=== PATIENT | male | born 1930 | race Caucasian/White ===

== ENCOUNTER 2016-07-06 14:12 | Outpatient (RCR) | payer MEDICARE ==
[~2016-07-06 14:12] MED LIST: AMLO10TA2 PO; ASPI-875 PO; ATRV10T PO; CALC-697 PO; CALCIUM CARBONATE 750 MG PO; CETI10TA17 PO; CHOL10003 PO; HCT25T PO; LOSA100T28 PO; LVF500T PO; METO-351 PO; MTP100TCR PO; MULT-963 PO; OMEG-9 PO; OMEP20CA12 PO; POTA10CA43 PO; PROP10DR2 OU; SCR1T1 PO; VALS320T8 PO; VITAMIN B PO
--- OUTSIDE RECORDS SUMMARY | 2016-07-06 14:15 | XMS REPORT | Continuity of Care Document ---
Author Author [facility] Organization [facility] Address Unknown Phone Unavailable Care Team Providers Care Truck Body Repairer Name Role Phone BEN CRANDALL MD PCP Insurance Providers Payer Name Policy Number Subscriber Name Relationship Wps Medicare [id number] Adrián Otto 18 Self / Same As Patient Blue Cross [facility] Supp [id number] Adrián Otto 18 Self / Same As Patient Advance Directives Directive Response Recorded Date/Time Advance Directives No 05/08/14 8:13am Health Care Power of Trial Management Associate No 05/08/14 8:13am Organ Donor No 05/08/14 8:13am Resuscitation Status Full Code 05/08/14 8:13am Problems No known problems or medical conditions. Medications Medication Dose Route Sig Days/Qty Instructions Order Date Discontinued Date Status Atorvastatin Calcium 10 Mg PO BEDTIME 02/28/13 Active Hydrochlorothiazide 25 Mg PO DAILY 02/28/13 Active Valsartan 320 Mg PO BEDTIME 02/28/13 Active Omeprazole 20 Mg PO DAILY PATIENT STATES HE ONLY TAKES ONCE DAILY ( BOTTLE SAYS BID) 02/28/13 Active Sucralfate 1 Gm PO THREE TIMES A DAY 02/28/13 Active Aspirin 81 Mg PO BEDTIME 02/28/13 Active Cetirizine HCl (Zyrtec) 10 Mg PO DAILY 02/28/13 05/08/14 Discontinued Multivitamin 1 Tab PO DAILY 02/28/13 Active Cholecalciferol 1,000 Unit PO DAILY 02/28/13 05/08/14 Discontinued [place]-3/Dha/Epa/Fish Oil 3 Cap PO DAILY TAKES 3 CAPS (1400MG) 02/28/13 Active [place]-3/Dha/Epa/Fish Oil 1 Cap PO BEDTIME 02/28/13 05/08/14 Discontinued [Vitamin B12 Sl] 2,500 Mcg PO DAILY 02/28/13 Active [Calcium Carb 750MG] 2 Tab PO THREE TIMES A DAY PRN 750MG 02/28/13 Discontinued Propylene Glycol/Peg 400 1 Drop OU TWICE A DAY PRN DRY EYES 02/28/13 Active Calcium Carbonate/Vitamin D3 2 Tab PO DAILY 05/08/14 Active Levofloxacin 500 Mg PO DAILY@11 7 Days 05/09/14 Active Social History Social History Problem Response Recorded Date/Time Smoking Status Never a Smoker 05/08/2014 8:14am Query Response Start Date Stop Date Smoking Status Never a Smoker Hospital Discharge Instructions No hospital discharge instructions. Plan of Care No plan of care. Functional Status Query Response Date Recorded Patient Orientation Person Place Time Situation May 09, 2014 6:01pm Comprehension Ability Understands Concepts May 09, 2014 9:00am Allergies, Adverse Reactions, Alerts Allergen Type Severity Reaction Status Last Updated clavulanic acid ([id number]) Allergy Intermediate NAUSEA Active 05/11/10 adhesive ([id number]) Allergy Intermediate Rash Active 05/09/14 Amoxicillin ([id number]) Allergy Intermediate NAUSEA Active 05/11/10 Immunizations Name Given Type Date of Pneumonia Vaccine 02/28/11 Historical Vital Signs Acute Vital Signs Vital Response Date/Time Temperature (Fahrenheit) 97.5 degrees F (97.6 - 99.5) Temperature (Calculated Celsius) 36.57358 degrees C (36.4 - 37.5) Temperature Source Tympanic Pulse Rate (adult) 61 bpm (60 - 90) Respiratory Rate 18 bpm (12 - 24) O2 Sat by Pulse Oximetry 95 % (88 - 100) Blood Pressure 123/69 mm Hg Pain Pain Intensity 3 Height (Feet) 5 feet Height (Inches) 7.00 inches Height (Calculated Centimeters) 170.933506 cm Weight (Pounds) 169 pounds Weight (Calculated Grams) 86648.111 gm Weight (Calculated Kilograms) 76.000670 kilograms Calculated BMI 26.47 Results Test Source Date Result Interp. Ref. Range Comments Activated Partial Thromboplast Time February 28, 2013 11:32am 21 SEC L 24- 35 Alanine Aminotransferase (ALT/SGPT) April 30, 2014 1:12pm 18 U/L N 0- 55 Albumin April 30, 2014 1:12pm 3.8 G/DL N 3.2-4.5 Alkaline Phosphatase April 30, 2014 1:12pm 61 U/L N 40-136 Aspartate Amino Transf (AST/SGOT) April 30, 2014 1:12pm 17 U/L N 5-34 BUN/Creatinine Ratio April 30, 2014 1:12pm 25 - Basophils # (Auto) April 30, 2014 1:12pm 0.0 10^3/uL N 0.0-0.1 Basophils (%) (Auto) April 30, 2014 1:12pm 1 % N 0-10 Blood Urea Nitrogen April 30, 2014 1:12pm 21 MG/DL H 7-18 Calcium Level April 30, 2014 1:12pm 9.3 MG/DL N 8.5-10.1 Carbon Dioxide Level April 30, 2014 1:12pm 28 MMOL/L N 21-32 Chloride Level April 30, 2014 1:12pm 100 MMOL/L N 98-107 Cholesterol Level February 28, 2013 11:32am 160 MG/DL N -200 Creatinine April 30, 2014 1:12pm 0.84 MG/DL N 0.60-1.30 Eosinophils # (Auto) April 30, 2014 1:12pm 0.3 10^3/uL N 0.0-0.3 Eosinophils (%) (Auto) April 30, 2014 1:12pm 5 % N 0-10 Free Thyroxine April 24, 2007 6:35am 0.63 NG/DL N 0.59-1.17 Glucose Level April 30, 2014 1:12pm 163 MG/DL H 70-105 HDL Cholesterol February 28, 2013 11:32am 44 MG/DL N 35-60 Hematocrit April 30, 2014 1:12pm 36 % L 40-54 Hemoglobin April 30, 2014 1:12pm 12.9 G/DL L 13.3-17.7 LDL Cholesterol February 28, 2013 11:32am 90 MG/DL N 0-129 Lymphocytes # (Auto) April 30, 2014 1:12pm 1.4 X 10^3 N 1.0-4.0 Lymphocytes (%) (Auto) April 30, 2014 1:12pm 23 % N 12-44 Mean Corpuscular Hemoglobin April 30, 2014 1:12pm 34 PG N 25-34 Mean Corpuscular Hemoglobin Concent April 30, 2014 1:12pm 36 G/DL N 32- 36 Mean Corpuscular Volume April 30, 2014 1:12pm 94 FL N 80-99 Mean Platelet Volume April 30, 2014 1:12pm 8.5 FL N 7.4-10.4 Monocytes # (Auto) April 30, 2014 1:12pm 0.4 X 10^3 N 0.0-1.0 Monocytes (%) (Auto) April 30, 2014 1:12pm 7 % N 0-12 Neutrophils # (Auto) April 30, 2014 1:12pm 3.9 X 10^3 N 1.8-7.8 Neutrophils (%) (Auto) April 30, 2014 1:12pm 65 % N 42-75 Platelet Count April 30, 2014 1:12pm 227 10^3/uL N 130-400 Potassium Level April 30, 2014 1:12pm 4.1 MMOL/L N 3.6-5.0 Prothrombin Time February 28, 2013 11:32am 12.6 SEC N 12.2-14.7 Red Blood Count April 30, 2014 1:12pm 3.79 10^6/uL L 4.35-5.85 Red Cell Distribution Width April 30, 2014 1:12pm 13.4 % N 10.0-14.5 Sodium Level April 30, 2014 1:12pm 135 MMOL/L N 135-145 Thyroid Stimulating Hormone (TSH) April 24, 2007 6:35am 3.42 UIU/ML N 0.34-5.60 Total Bilirubin April 30, 2014 1:12pm 0.5 MG/DL N 0.1-1.0 Total Protein April 30, 2014 1:12pm 7.2 G/DL N 6.4-8.2 Triglycerides Level February 28, 2013 11:32am 129 MG/DL N 30.0-150.0 VLDL Cholesterol February 28, 2013 11:32am 26 MG/DL N 5-40 White Blood Count April 30, 2014 1:12pm 6.0 10^3/uL N 4.3-11.0 Estimat Glomerular Filtration Rate April 30, 2014 1:12pm > 60 - GFR INTERPRETIVE DATA UNITS FOR ESTIMATED GFR (eGFR): mL/min/1.73 M2 REFERENCE RANGE FOR ESTIMATED GFR (eGFR) eGFR NORMAL eGFR >60 MODERATELY DECREASED eGFR 30-59 SEVERLY DECREASED eGFR 15-29 KIDNEY FAILURE <15 (OR DIALYSIS) INR Comment February 28, 2013 11:32am 1.0 N 0.8-1.4 INTERPRETIVE DATASUGGESTED THERAPEUTIC RANGE FOR INR'S: VENOUS THROMBOSIS, PULMONARY EMBOLISM, OR PREVENTION OF SYSTEMIC EMBOLISM (EG. IN ATRIAL FIBRILLATION): 2.0 - 3.0 MECHANICAL PROSTHETIC HEART VALVES: 2.5 - 3.5* *NOTE: INR'S UP TO 4.5 MAY BE NECESSARY IN SELECTED GROUPS OF HIGH RISK PATIENTS. [employer] CONSENSUS CONFERENCE ON ANTITHROMBOTIC THERAPY (2000). MRSA Screen Nasal February 28, 2013 11:32am MRSA not isolated Procedures Procedure Status Date Provider(s) Cardiac event recording completed 04/02/14 BEN CRANDALL MD Tracing only of electrocardiogram completed 05/08/14 BEBO HUTCHINS MD Tracing only of electrocardiogram completed 05/08/14 BEBO HUTCHINS MD Encounters Encounter Location Date/Time Registered Recurring Via [facility] 04/30/14 1:06pm Registered Recurring Via [facility] 04/26/14 8:18am
[2016-08-23 12:15] LABS: BASOPHILS % (AUTO) 0 % (0-10); EOSINOPHILS # (AUTO) 0.3 10^3/uL (0.0-0.3); EOSINOPHILS % (AUTO) 4 % (0-10); LYMPHOCYTES # (AUTO) 1.7 X 10^3 (1.0-4.0); LYMPHOCYTES % (AUTO) 27 % (12-44); MEAN CORPUSCULAR HEMOGLOBIN 33 PG (25-34); MEAN CORPUSCULAR HGB CONC 36 G/DL (32-36); MEAN CORPUSCULAR VOLUME 92 FL (80-99); MEAN PLATELET VOLUME 8.5 FL (7.4-10.4); MONOCYTES # (AUTO) 0.8 X 10^3 (0.0-1.0); MONOCYTES % (AUTO) 12 % (0-12); NEUTROPHILS # (AUTO) 3.7 X 10^3 (1.8-7.8); NEUTROPHILS % (AUTO) 57 % (42-75); PLATELET COUNT 203 10^3/uL (130-400); WHITE BLOOD COUNT 6.5 10^3/uL (4.3-11.0)
[2016-08-23 12:42] LABS: ALANINE AMINOTRANSFERASE 15 U/L (0-55); ALBUMIN 3.9 G/DL (3.2-4.5); ANION GAP 8 MMOL/L (5-14); ASPARTATE AMINO TRANSFERASE 21 U/L (5-34); BILIRUBIN,TOTAL 0.6 MG/DL (0.1-1.0); BLOOD UREA NITROGEN 15 MG/DL (7-18); BUN/CREATININE RATIO 21; CALCIUM 9.2 MG/DL (8.5-10.1); CARBON DIOXIDE 26 MMOL/L (21-32); CHLORIDE 99 MMOL/L (98-107); GFR ESTIMATED > 60; GLUCOSE 95 MG/DL (70-105); POTASSIUM 4.2 MMOL/L (3.6-5.0); SODIUM 133 MMOL/L (135-145); TOTAL PROTEIN 6.3 G/DL (6.4-8.2)
== END 2016-10-04 | disposition home or self-care (01) ==
LOC: ONC 14:12
PROVIDERS: ATTEND Internal Medicine Hematology & Oncology
DX: C61 Malignant neoplasm of prostate (principal); C79.51 Secondary malignant neoplasm of bone; Z79.899 Other long term (current) drug therapy
CPT/HCPCS: 36415; 80053; 84153; 85025; 99213

== ENCOUNTER → 2016-10-28 | Outpatient (CLI) | payer MEDICARE ==
--- OUTSIDE RECORDS SUMMARY | 2016-10-28 09:26 | XMS REPORT | Continuity of Care Document ---
Author Author [facility] Organization [facility] Address Unknown Phone Unavailable Care Team Providers Care Web Merchandiser Name Role Phone BEN CRANDALL MD PCP Insurance Providers Payer Name Policy Number Subscriber Name Relationship Wps Medicare [id number] Adrián Otto 18 Self / Same As Patient Blue Cross [facility] Supp [id number] Adrián Otto 18 Self / Same As Patient Advance Directives Directive Response Recorded Date/Time Advance Directives No 05/08/14 8:13am Health Care Power of Mail Sorter No 05/08/14 8:13am Organ Donor No 05/08/14 [...] 1,000 Unit PO DAILY 02/28/13 05/08/14 Discontinued [place]-3/Dha/Epa/Fish Oil 3 Cap PO DAILY TAKES 3 CAPS (1400MG) 02/28/13 Active [place]-3/Dha/Epa/Fish Oil 1 Cap PO BEDTIME 02/28/13 05/08/14 [...] Severity Reaction Status Last Updated clavulanic acid ([id number]) Allergy Intermediate NAUSEA Active 05/11/10 adhesive ([id number]) Allergy Intermediate Rash Active 05/09/14 Amoxicillin ([id number]) Allergy Intermediate NAUSEA Active 05/11/10 Immunizations Name Given Type Date of Pneumonia Vaccine 02/28/11 Historical Vital Signs Acute Vital Signs Vital Response Date/Time Temperature (Fahrenheit) 97.5 degrees F (97.6 - 99.5) Temperature (Calculated Celsius) 36.61866 degrees C (36.4 - 37.5) Temperature Source Tympanic Pulse Rate (adult) 61 bpm (60 - 90) Respiratory Rate 18 bpm (12 - 24) O2 Sat by Pulse Oximetry 95 % (88 - 100) Blood Pressure 123/69 mm Hg Pain Pain Intensity 3 Height (Feet) 5 feet Height (Inches) 7.00 inches Height (Calculated Centimeters) 170.532547 cm Weight (Pounds) 169 pounds Weight (Calculated Grams) 59189.111 gm Weight (Calculated Kilograms) 76.550095 kilograms Calculated BMI 26.47 Results Test Source [...] SELECTED GROUPS OF HIGH RISK PATIENTS. [employer] [place] [employer] CONSENSUS CONFERENCE ON ANTITHROMBOTIC THERAPY (2000). MRSA Screen Nasal February 28, 2013 11:32am MRSA not isolated Procedures Procedure Status Date Provider(s) Cardiac event recording completed 04/02/14 BEN CRANDALL MD Tracing only of electrocardiogram completed 05/08/14 BEBO HUTCHINS MD Tracing only of electrocardiogram completed 05/08/14 BEBO HUTCHINS MD Encounters Encounter Location Date/Time Registered Recurring Via [facility] 04/30/14 1:06pm Registered Recurring Via [facility] 04/26/14 8:18am
[2016-10-28 10:12] LABS: BASOPHILS % (AUTO) 0 % (0-10); EOSINOPHILS # (AUTO) 0.1 10^3/uL (0.0-0.3); EOSINOPHILS % (AUTO) 3 % (0-10); LYMPHOCYTES % (AUTO) 21 % (12-44); MEAN CORPUSCULAR HEMOGLOBIN 33 PG (25-34); MEAN CORPUSCULAR HGB CONC 36 G/DL (32-36); MEAN CORPUSCULAR VOLUME 93 FL (80-99); MONOCYTES # (AUTO) 0.4 X 10^3 (0.0-1.0); MONOCYTES % (AUTO) 9 % (0-12); NEUTROPHILS # (AUTO) 3.2 X 10^3 (1.8-7.8); NEUTROPHILS % (AUTO) 68 % (42-75); PLATELET COUNT 226 10^3/uL (130-400); RED BLOOD COUNT 3.81 10^6/uL (4.35-5.85); RED CELL DISTRIBUTION WIDTH 13.5 % (10.0-14.5); WHITE BLOOD COUNT 4.7 10^3/uL (4.3-11.0)
== END ==
LOC: LAB 09:23
PROVIDERS: ATTEND Radiology Radiation Oncology
DX: C61 Malignant neoplasm of prostate (principal)
CPT/HCPCS: 36415; 84153; 85025

== ENCOUNTER 2017-01-19 09:01 | Outpatient (RCR) | payer MEDICARE ==
--- OUTSIDE RECORDS SUMMARY | 2016-10-28 08:52 | XMS REPORT | Continuity of Care Document ---
Author Author [facility] Organization [facility] Address Unknown Phone Unavailable Care Team Providers Care Casino Duty Manager Name Role Phone BEN CRANDALL MD PCP Insurance Providers Payer Name Policy Number Subscriber Name Relationship Wps Medicare [id number] Adrián Otto 18 Self / Same As Patient Blue Cross [facility] Supp [id number] Adrián Otto 18 Self / Same As Patient Advance Directives Directive Response Recorded Date/Time Advance Directives No 05/08/14 8:13am Health Care Power of Home Economics Extension Worker No 05/08/14 8:13am Organ Donor No 05/08/14 [...] 1,000 Unit PO DAILY 02/28/13 05/08/14 Discontinued [place]-3/Dha/Epa/Fish Oil 3 Cap PO DAILY TAKES 3 CAPS (1400MG) 02/28/13 Active [place]-3/Dha/Epa/Fish Oil 1 Cap PO BEDTIME 02/28/13 05/08/14 [...] Severity Reaction Status Last Updated clavulanic acid ([id number]) Allergy Intermediate NAUSEA Active 05/11/10 adhesive ([id number]) Allergy Intermediate Rash Active 05/09/14 Amoxicillin ([id number]) Allergy Intermediate NAUSEA Active 05/11/10 Immunizations Name Given Type Date of Pneumonia Vaccine 02/28/11 Historical Vital Signs Acute Vital Signs Vital Response Date/Time Temperature (Fahrenheit) 97.5 degrees F (97.6 - 99.5) Temperature (Calculated Celsius) 36.60212 degrees C (36.4 - 37.5) Temperature Source Tympanic Pulse Rate (adult) 61 bpm (60 - 90) Respiratory Rate 18 bpm (12 - 24) O2 Sat by Pulse Oximetry 95 % (88 - 100) Blood Pressure 123/69 mm Hg Pain Pain Intensity 3 Height (Feet) 5 feet Height (Inches) 7.00 inches Height (Calculated Centimeters) 170.183024 cm Weight (Pounds) 169 pounds Weight (Calculated Grams) 89632.111 gm Weight (Calculated Kilograms) 76.855570 kilograms Calculated BMI 26.47 Results Test Source [...] SELECTED GROUPS OF HIGH RISK PATIENTS. [employer] CONSENSUS CONFERENCE ON ANTITHROMBOTIC THERAPY (2000). MRSA Screen Nasal February 28, 2013 11:32am MRSA not isolated Procedures Procedure Status Date Provider(s) Cardiac event recording completed 04/02/14 BEN CRANDALL MD Tracing only of electrocardiogram completed 05/08/14 BEBO HUTCHINS MD Tracing only of electrocardiogram completed 05/08/14 BEBO HUTCHINS MD Encounters Encounter Location Date/Time Registered Recurring Via [facility] 04/30/14 1:06pm Registered Recurring Via [facility] 04/26/14 8:18am
[2016-10-28 10:38] LABS: ALANINE AMINOTRANSFERASE 18 U/L (0-55); ALBUMIN 3.9 G/DL (3.2-4.5); ANION GAP 8 MMOL/L (5-14); ASPARTATE AMINO TRANSFERASE 18 U/L (5-34); BILIRUBIN,TOTAL 0.6 MG/DL (0.1-1.0); BLOOD UREA NITROGEN 17 MG/DL (7-18); BUN/CREATININE RATIO 24; CALCIUM 9.1 MG/DL (8.5-10.1); CARBON DIOXIDE 28 MMOL/L (21-32); CHLORIDE 100 MMOL/L (98-107); CREATININE SERUM 0.71 MG/DL (0.60-1.30); GFR ESTIMATED > 60; GLUCOSE 108 MG/DL (70-105); MAGNESIUM 1.9 MG/DL (1.8-2.4); POTASSIUM 3.8 MMOL/L (3.6-5.0); SODIUM 136 MMOL/L (135-145); TOTAL PROTEIN 6.3 G/DL (6.4-8.2)
[2017-01-19 10:13] LABS: BASOPHILS % (AUTO) 1 % (0-10); EOSINOPHILS # (AUTO) 0.2 10^3/uL (0.0-0.3); EOSINOPHILS % (AUTO) 4 % (0-10); LYMPHOCYTES # (AUTO) 0.8 X 10^3 (1.0-4.0); LYMPHOCYTES % (AUTO) 21 % (12-44); MEAN CORPUSCULAR HEMOGLOBIN 34 PG (25-34); MEAN CORPUSCULAR HGB CONC 36 G/DL (32-36); MEAN CORPUSCULAR VOLUME 96 FL (80-99); MEAN PLATELET VOLUME 8.2 FL (7.4-10.4); MONOCYTES # (AUTO) 0.4 X 10^3 (0.0-1.0); MONOCYTES % (AUTO) 11 % (0-12); NEUTROPHILS # (AUTO) 2.5 X 10^3 (1.8-7.8); NEUTROPHILS % (AUTO) 64 % (42-75); PLATELET COUNT 187 10^3/uL (130-400); RED BLOOD COUNT 3.39 10^6/uL (4.35-5.85); RED CELL DISTRIBUTION WIDTH 13.1 % (10.0-14.5); WHITE BLOOD COUNT 3.9 10^3/uL (4.3-11.0)
[2017-01-19 10:33] LABS: ALANINE AMINOTRANSFERASE 19 U/L (0-55); ALBUMIN 3.7 G/DL (3.2-4.5); ANION GAP 10 MMOL/L (5-14); ASPARTATE AMINO TRANSFERASE 20 U/L (5-34); BILIRUBIN,TOTAL 0.5 MG/DL (0.1-1.0); BLOOD UREA NITROGEN 11 MG/DL (7-18); BUN/CREATININE RATIO 16; CARBON DIOXIDE 26 MMOL/L (21-32); CHLORIDE 99 MMOL/L (98-107); CREATININE SERUM 0.67 MG/DL (0.60-1.30); GFR ESTIMATED > 60; GLUCOSE 128 MG/DL (70-105); POTASSIUM 3.3 MMOL/L (3.6-5.0); SODIUM 135 MMOL/L (135-145)
== END 2017-01-26 | disposition home or self-care (01) ==
LOC: ONC 09:01
PROVIDERS: ATTEND Internal Medicine Hematology & Oncology
DX: C61 Malignant neoplasm of prostate (principal); C79.51 Secondary malignant neoplasm of bone; Z79.899 Other long term (current) drug therapy
CPT/HCPCS: 80053; 82306; 83735; 84153; 85025; 99213

== ENCOUNTER → 2017-01-25 | Outpatient (CLI) | payer MEDICARE ==
[~2017-01-25] MED LIST changes: +BARIUM SUSPENSION 2.1% (VANILLA SILQ) 450 ML PO ONE; +CATHETER FLUSH 10 ML SYR IV PRN; +IOHEXOL 350 MG/ML 100 ML (OMNIPAQUE 350) VIAL IV ONE
--- NOTE | 2017-01-25 13:41 | Diagnostic Imaging Report ---
PROCEDURE: CT chest, abdomen, and pelvis with contrast. TECHNIQUE: Multiple contiguous axial images were obtained through the chest, abdomen, and pelvis after the administration of intravenous contrast. INDICATION: Prostate cancer. CONTRAST: 100 mL of Omnipaque 350 is administered intravenously. COMPARISON: 06/08/2016. FINDINGS: CT chest: There is no significant consolidation, mass or suspicious nodule. There are no mediastinal mass or significantly enlarged lymph nodes. No hilar or axillary lymphadenopathy. There is a cardiac pacer in the anterior left chest wall with pacemaker leads. There is a normal cardiac size. No pericardial or pleural effusion. The thoracic aorta is normal in caliber. Sclerotic focus seen in the vertebral body T10, measuring 1.5 cm, is unchanged and poorly defined sclerotic lesions involving most of T12 vertebral body are again noted without significant change likely related to sclerotic metastasis. Also sclerotic lesion around a healing fracture on the lateral aspect of the third left rib is noted. Other scattered foci of sclerosis in the ribs seen. These appear stable. CT abdomen and pelvis: Unchanged 1.6 cm hepatic cyst in the central aspect of the left hepatic lobe is seen with no new lesion or enhancing mass in the liver. The spleen is not enlarged. The adrenals, the pancreas, and the kidneys appear unremarkable. Symmetric enhancement in the kidneys and excretion is seen with no hydronephrosis. The urinary bladder is dilated with a bladder diverticulum seen anteriorly. No soft tissue mass. Hypodensity in the central aspect of the prostate may relate to a prior TURP procedure. There is no pelvic soft tissue mass or lymphadenopathy. No para-aortic significantly enlarged lymph nodes. The abdominal aorta is normal in caliber. There is no bowel obstruction. No free fluid or fluid collection is seen in the abdomen or pelvis. Bilateral fat-containing small inguinal hernias are seen. This includes a fluid density seen in the distal aspect of the left inguinal canal which could be trapped fluid in the hernia. A superiorly displaced testicle may have a similar appearance. When compared to 05/13/2016, similar finding is seen with no adverse development. The osseous structures demonstrate a few sclerotic lesions in the pelvis, stable from 05/13/2016. There is fusion of the SI joints and prominent degenerative changes in the lumbar spine. Nonspecific sclerotic changes in the lumbar spine along L2 and L3 levels are also seen without significant change. These could be degenerative and not necessarily sclerotic metastasis. IMPRESSION: CT chest: 1. No suspicious pulmonary nodule or lymphadenopathy. 2. 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 CT abdomen and pelvis: 1. Unchanged sclerotic lesions in the pelvis, may relate to osseous metastasis. 2. Bladder diverticulum. Small inguinal hernias. No soft tissue mass or lymphadenopathy. Dictated by: Dictated on workstation # [id number]
--- NOTE | 2017-01-25 15:05 | Diagnostic Imaging Report ---
Whole body bone scan. TECHNIQUE: After the intravenous administration of 26.4 mCi of Technetium 99m MDP, whole body delayed phase bone scan images were obtained with lateral views of the head and neck and the chest regions. INDICATION: Prostate cancer. COMPARISON: 05/13/2016. FINDINGS: There are multiple foci of increased radiotracer uptake seen within the spine, the ribs, the pelvis, and the upper femurs suggestive of metastatic disease. When compared to 05/13/2016, the lesions appear to be more numerous, lesions particularly in the pelvis and the ribs. Tiny lesions in the right ilium and lower lumbar spine for example appear to have developed compared to the prior exam. On the other hand, a few lesions previously seen to have moderate intensity such as at the lower thoracic spine and the mid thoracic spine level and in the upper left ribs now demonstrate only mild degree of activity. Indeterminate lesions in the proximal left tibia could be enthesopathy at the level of the insertion of the patellar tendon similar to prior exam. IMPRESSION: There are several osseous lesions with mild increased intensity of uptake. When compared to 05/13/2016, there is suggestion of new mild areas of increased uptake such as in the right pelvis. There is however decreased intensity of uptake in the dominant lesion seen previously in the thoracic spine and upper left ribs. The concurrent CT scan does not show all of these lesions. Dictated by: Dictated on workstation # [id number]
== END ==
LOC: CARD 10:42
PROVIDERS: ATTEND Internal Medicine Hematology & Oncology
DX: C61 Malignant neoplasm of prostate (principal)
CPT/HCPCS: 71260; 74177; 78306

== ENCOUNTER → 2017-03-02 | Outpatient (RCR) | payer MEDICARE ==
--- OUTSIDE RECORDS SUMMARY | 2016-12-02 11:16 | XMS REPORT | Continuity of Care Document ---
Author Author [facility] Organization [facility] Address Unknown Phone Unavailable Care Team Providers Care Electrician Powerhouse Name Role Phone BEN CRANDALL MD PCP Insurance Providers Payer Name Policy Number Subscriber Name Relationship Wps Medicare [id number] Adrián Otto 18 Self / Same As Patient Blue Cross [facility] Supp [id number] Adrián Otto 18 Self / Same As Patient Advance Directives Directive Response Recorded Date/Time Advance Directives No 05/08/14 8:13am Health Care Power of Social Media Developer No 05/08/14 8:13am Organ Donor No 05/08/14 [...] 1,000 Unit PO DAILY 02/28/13 05/08/14 Discontinued [place]-3/Dha/Epa/Fish Oil 3 Cap PO DAILY TAKES 3 CAPS (1400MG) 02/28/13 Active [place]-3/Dha/Epa/Fish Oil 1 Cap PO BEDTIME 02/28/13 05/08/14 [...] Severity Reaction Status Last Updated clavulanic acid ([id number]) Allergy Intermediate NAUSEA Active 05/11/10 adhesive ([id number]) Allergy Intermediate Rash Active 05/09/14 Amoxicillin ([id number]) Allergy Intermediate NAUSEA Active 05/11/10 Immunizations Name Given Type Date of Pneumonia Vaccine 02/28/11 Historical Vital Signs Acute Vital Signs Vital Response Date/Time Temperature (Fahrenheit) 97.5 degrees F (97.6 - 99.5) Temperature (Calculated Celsius) 36.61984 degrees C (36.4 - 37.5) Temperature Source Tympanic Pulse Rate (adult) 61 bpm (60 - 90) Respiratory Rate 18 bpm (12 - 24) O2 Sat by Pulse Oximetry 95 % (88 - 100) Blood Pressure 123/69 mm Hg Pain Pain Intensity 3 Height (Feet) 5 feet Height (Inches) 7.00 inches Height (Calculated Centimeters) 170.027853 cm Weight (Pounds) 169 pounds Weight (Calculated Grams) 33064.111 gm Weight (Calculated Kilograms) 76.645542 kilograms Calculated BMI 26.47 Results Test Source [...] SELECTED GROUPS OF HIGH RISK PATIENTS. [employer] [place] [employer] CONSENSUS CONFERENCE ON ANTITHROMBOTIC THERAPY (2000). MRSA Screen Nasal February 28, 2013 11:32am MRSA not isolated Procedures Procedure Status Date Provider(s) Cardiac event recording completed 04/02/14 BEN CRANDALL MD Tracing only of electrocardiogram completed 05/08/14 BEBO HUTCHINS MD Tracing only of electrocardiogram completed 05/08/14 BEBO HUTCHINS MD Encounters Encounter Location Date/Time Registered Recurring Via [facility] 04/30/14 1:06pm Registered Recurring Via [facility] 04/26/14 8:18am
[2016-12-02 14:18] LABS: BASOPHILS % (AUTO) 0 % (0-10); EOSINOPHILS # (AUTO) 0.1 10^3/uL (0.0-0.3); EOSINOPHILS % (AUTO) 3 % (0-10); LYMPHOCYTES # (AUTO) 1.2 X 10^3 (1.0-4.0); LYMPHOCYTES % (AUTO) 24 % (12-44); MEAN CORPUSCULAR HEMOGLOBIN 33 PG (25-34); MEAN CORPUSCULAR HGB CONC 36 G/DL (32-36); MEAN CORPUSCULAR VOLUME 94 FL (80-99); MEAN PLATELET VOLUME 8.3 FL (7.4-10.4); MONOCYTES # (AUTO) 0.4 X 10^3 (0.0-1.0); MONOCYTES % (AUTO) 8 % (0-12); NEUTROPHILS # (AUTO) 3.3 X 10^3 (1.8-7.8); NEUTROPHILS % (AUTO) 64 % (42-75); PLATELET COUNT 233 10^3/uL (130-400); RED BLOOD COUNT 3.54 10^6/uL (4.35-5.85); RED CELL DISTRIBUTION WIDTH 14.2 % (10.0-14.5); WHITE BLOOD COUNT 5.1 10^3/uL (4.3-11.0)
[2016-12-30 11:29] LABS: BASOPHILS % (AUTO) 0 % (0-10); EOSINOPHILS # (AUTO) 0.2 10^3/uL (0.0-0.3); EOSINOPHILS % (AUTO) 3 % (0-10); LYMPHOCYTES % (AUTO) 20 % (12-44); MEAN CORPUSCULAR HEMOGLOBIN 34 PG (25-34); MEAN CORPUSCULAR HGB CONC 36 G/DL (32-36); MEAN CORPUSCULAR VOLUME 94 FL (80-99); MEAN PLATELET VOLUME 7.9 FL (7.4-10.4); MONOCYTES # (AUTO) 0.6 X 10^3 (0.0-1.0); MONOCYTES % (AUTO) 12 % (0-12); NEUTROPHILS # (AUTO) 3.2 X 10^3 (1.8-7.8); NEUTROPHILS % (AUTO) 64 % (42-75); PLATELET COUNT 193 10^3/uL (130-400); RED BLOOD COUNT 3.39 10^6/uL (4.35-5.85); RED CELL DISTRIBUTION WIDTH 13.8 % (10.0-14.5)
[~2017-03-02] MED LIST changes: -BARIUM SUSPENSION 2.1% (VANILLA SILQ) 450 ML PO ONE; -CATHETER FLUSH 10 ML SYR IV PRN; -IOHEXOL 350 MG/ML 100 ML (OMNIPAQUE 350) VIAL IV ONE
== END | disposition home or self-care (01) ==
LOC: LAB 12-02 11:13
PROVIDERS: ATTEND Radiology Radiation Oncology
DX: C61 Malignant neoplasm of prostate (principal)
CPT/HCPCS: 36415; 84153; 85025

== ENCOUNTER → 2017-03-11 | Outpatient (CLI) | payer MEDICARE | LOC: LAB 08:59 | PROVIDERS: ATTEND Family Medicine | DX: D64.9 Anemia, unspecified (principal) ==

== ENCOUNTER → 2017-04-04 | Outpatient (CLI) | payer MEDICARE ==
[~2017-04-04] MED LIST changes: +PANT40TA2 PO
--- NOTE | 2017-04-04 16:11 | Diagnostic Imaging Report ---
Whole body bone scan. Technique: After the intravenous administration of 25.2 mCi of Technetium 99m MDP, whole body delayed phase bone scan images were obtained with lateral views of the head and neck and the chest regions. Indication: Prostate cancer. COMPARISON: 01/25/2017 Findings: There are numerous metastasis into the bone seen with generally mild areas of activity seen and involve the thoracic, lumbar and the cervical spine, the pelvis, the ribs, and the right hip. There is question of a focal lesion within the proximal left tibia as well which could be degenerative or posttraumatic at the insertion of the patellar tendon or related to metastasis. No definite new lesion has developed since 01/25/2017 exam. IMPRESSION: Stable numerous foci of generally mild activity in the osseous structures compatible with metastatic disease. No definite new lesion is identified. Dictated by: Dictated on workstation # [id number]
== END ==
LOC: CARD 12:10
PROVIDERS: ATTEND Internal Medicine Hematology & Oncology
DX: Z01.89 Encounter for other specified special examinations; C79.51 Secondary malignant neoplasm of bone; C61 Malignant neoplasm of prostate
CPT/HCPCS: 78306

== ENCOUNTER 2017-04-07 10:39 | Outpatient (RCR) | payer MEDICARE ==
--- NOTE | 2017-02-02 10:37 | Diagnostic Imaging Report ---
INDICATION: Pelvic pain. FINDINGS: An AP view of the pelvis shows no fracture or dislocation. IMPRESSION: Negative pelvis. Dictated by: Dictated on workstation # [id number]
--- NOTE | 2017-02-02 10:37 | Diagnostic Imaging Report ---
INDICATION: Left hip pain. FINDINGS: Two views of the left hip show no fracture, dislocation, or other acute abnormalities. IMPRESSION: Negative left hip. Dictated by: Dictated on workstation # [id number]
[2017-02-02 11:46] LABS: BASOPHILS % (AUTO) 0 % (0-10); EOSINOPHILS % (AUTO) 0 % (0-10); LYMPHOCYTES # (AUTO) 0.6 X 10^3 (1.0-4.0); LYMPHOCYTES % (AUTO) 6 % (12-44); MEAN CORPUSCULAR HEMOGLOBIN 35 PG (25-34); MEAN CORPUSCULAR HGB CONC 37 G/DL (32-36); MEAN CORPUSCULAR VOLUME 95 FL (80-99); MONOCYTES # (AUTO) 0.7 X 10^3 (0.0-1.0); MONOCYTES % (AUTO) 7 % (0-12); NEUTROPHILS # (AUTO) 8.2 X 10^3 (1.8-7.8); NEUTROPHILS % (AUTO) 87 % (42-75); PLATELET COUNT 235 10^3/uL (130-400); RED BLOOD COUNT 3.28 10^6/uL (4.35-5.85); RED CELL DISTRIBUTION WIDTH 12.6 % (10.0-14.5); WHITE BLOOD COUNT 9.5 10^3/uL (4.3-11.0)
[2017-02-02 12:14] LABS: ALANINE AMINOTRANSFERASE 17 U/L (0-55); ALBUMIN 4.1 G/DL (3.2-4.5); ANION GAP 13 MMOL/L (5-14); ASPARTATE AMINO TRANSFERASE 17 U/L (5-34); BILIRUBIN,TOTAL 0.4 MG/DL (0.1-1.0); BLOOD UREA NITROGEN 17 MG/DL (7-18); BUN/CREATININE RATIO 24; CALCIUM 9.7 MG/DL (8.5-10.1); CARBON DIOXIDE 24 MMOL/L (21-32); CHLORIDE 93 MMOL/L (98-107); CREATININE SERUM 0.72 MG/DL (0.60-1.30); GFR ESTIMATED > 60; GLUCOSE 174 MG/DL (70-105); SODIUM 130 MMOL/L (135-145); TOTAL PROTEIN 6.8 G/DL (6.4-8.2)
[2017-02-11 10:07] LABS: BASOPHILS % (AUTO) 0 % (0-10); EOSINOPHILS % (AUTO) 1 % (0-10); LYMPHOCYTES # (AUTO) 0.6 X 10^3 (1.0-4.0); LYMPHOCYTES % (AUTO) 34 % (12-44); MEAN CORPUSCULAR HEMOGLOBIN 34 PG (25-34); MEAN CORPUSCULAR HGB CONC 36 G/DL (32-36); MEAN CORPUSCULAR VOLUME 93 FL (80-99); MEAN PLATELET VOLUME 8.6 FL (7.4-10.4); MONOCYTES # (AUTO) 0.3 X 10^3 (0.0-1.0); MONOCYTES % (AUTO) 18 % (0-12); NEUTROPHILS # (AUTO) 0.9 X 10^3 (1.8-7.8); NEUTROPHILS % (AUTO) 48 % (42-75); PLATELET COUNT 223 10^3/uL (130-400); RED BLOOD COUNT 3.07 10^6/uL (4.35-5.85); RED CELL DISTRIBUTION WIDTH 12.3 % (10.0-14.5); WHITE BLOOD COUNT 1.9 10^3/uL (4.3-11.0)
[2017-02-11 10:28] LABS: ANION GAP 10 MMOL/L (5-14); BLOOD UREA NITROGEN 24 MG/DL (7-18); BUN/CREATININE RATIO 30; CALCIUM 8.9 MG/DL (8.5-10.1); CARBON DIOXIDE 26 MMOL/L (21-32); CHLORIDE 92 MMOL/L (98-107); CREATININE SERUM 0.79 MG/DL (0.60-1.30); GFR ESTIMATED > 60; GLUCOSE 117 MG/DL (70-105); POTASSIUM 3.6 MMOL/L (3.6-5.0); SODIUM 128 MMOL/L (135-145)
[2017-02-16 10:40] LABS: BASOPHILS % (AUTO) 0 % (0-10); EOSINOPHILS % (AUTO) 0 % (0-10); LYMPHOCYTES # (AUTO) 0.6 X 10^3 (1.0-4.0); LYMPHOCYTES % (AUTO) 9 % (12-44); MEAN CORPUSCULAR HEMOGLOBIN 33 PG (25-34); MEAN CORPUSCULAR HGB CONC 35 G/DL (32-36); MEAN CORPUSCULAR VOLUME 96 FL (80-99); MEAN PLATELET VOLUME 8.7 FL (7.4-10.4); MONOCYTES # (AUTO) 0.5 X 10^3 (0.0-1.0); MONOCYTES % (AUTO) 7 % (0-12); NEUTROPHILS % (AUTO) 84 % (42-75); PLATELET COUNT 225 10^3/uL (130-400); RED BLOOD COUNT 3.19 10^6/uL (4.35-5.85); RED CELL DISTRIBUTION WIDTH 12.7 % (10.0-14.5); WHITE BLOOD COUNT 7.1 10^3/uL (4.3-11.0)
[2017-02-16 10:58] LABS: ANION GAP 10 MMOL/L (5-14); BLOOD UREA NITROGEN 17 MG/DL (7-18); BUN/CREATININE RATIO 24; CARBON DIOXIDE 26 MMOL/L (21-32); CHLORIDE 100 MMOL/L (98-107); CREATININE SERUM 0.72 MG/DL (0.60-1.30); GFR ESTIMATED > 60; GLUCOSE 128 MG/DL (70-105); POTASSIUM 3.9 MMOL/L (3.6-5.0); SODIUM 136 MMOL/L (135-145)
[2017-02-23 09:09] LABS: BASOPHILS % (AUTO) 0 % (0-10); EOSINOPHILS % (AUTO) 0 % (0-10); LYMPHOCYTES # (AUTO) 0.5 X 10^3 (1.0-4.0); LYMPHOCYTES % (AUTO) 5 % (12-44); MEAN CORPUSCULAR HEMOGLOBIN 34 PG (25-34); MEAN CORPUSCULAR HGB CONC 35 G/DL (32-36); MEAN CORPUSCULAR VOLUME 96 FL (80-99); MEAN PLATELET VOLUME 8.4 FL (7.4-10.4); MONOCYTES # (AUTO) 0.5 X 10^3 (0.0-1.0); MONOCYTES % (AUTO) 5 % (0-12); NEUTROPHILS # (AUTO) 9.2 X 10^3 (1.8-7.8); NEUTROPHILS % (AUTO) 90 % (42-75); PLATELET COUNT 251 10^3/uL (130-400); RED BLOOD COUNT 3.09 10^6/uL (4.35-5.85); RED CELL DISTRIBUTION WIDTH 13.8 % (10.0-14.5); WHITE BLOOD COUNT 10.2 10^3/uL (4.3-11.0)
[2017-02-23 09:34] LABS: ALANINE AMINOTRANSFERASE 22 U/L (0-55); ALBUMIN 3.7 G/DL (3.2-4.5); ANION GAP 13 MMOL/L (5-14); ASPARTATE AMINO TRANSFERASE 12 U/L (5-34); BILIRUBIN,TOTAL 0.5 MG/DL (0.1-1.0); BLOOD UREA NITROGEN 21 MG/DL (7-18); BUN/CREATININE RATIO 29; CALCIUM 9.2 MG/DL (8.5-10.1); CARBON DIOXIDE 23 MMOL/L (21-32); CHLORIDE 98 MMOL/L (98-107); CREATININE SERUM 0.73 MG/DL (0.60-1.30); GFR ESTIMATED > 60; GLUCOSE 238 MG/DL (70-105); MAGNESIUM 1.8 MG/DL (1.8-2.4); POTASSIUM 3.9 MMOL/L (3.6-5.0); SODIUM 134 MMOL/L (135-145); TOTAL PROTEIN 6.2 G/DL (6.4-8.2)
[2017-03-02 10:16] LABS: BASOPHILS % (AUTO) 0 % (0-10); EOSINOPHILS % (AUTO) 1 % (0-10); LYMPHOCYTES # (AUTO) 0.4 X 10^3 (1.0-4.0); LYMPHOCYTES % (AUTO) 50 % (12-44); MEAN CORPUSCULAR HEMOGLOBIN 33 PG (25-34); MEAN CORPUSCULAR HGB CONC 34 G/DL (32-36); MEAN CORPUSCULAR VOLUME 96 FL (80-99); MEAN PLATELET VOLUME 8.9 FL (7.4-10.4); MONOCYTES # (AUTO) 0.2 X 10^3 (0.0-1.0); MONOCYTES % (AUTO) 22 % (0-12); NEUTROPHILS # (AUTO) 0.2 X 10^3 (1.8-7.8); NEUTROPHILS % (AUTO) 27 % (42-75); PLATELET COUNT 193 10^3/uL (130-400); RED BLOOD COUNT 2.93 10^6/uL (4.35-5.85); RED CELL DISTRIBUTION WIDTH 14.1 % (10.0-14.5)
[2017-03-02 10:18] LABS: WHITE BLOOD COUNT 0.9 10^3/uL (4.3-11.0)
[2017-03-02 10:30] LABS: ANION GAP 9 MMOL/L (5-14); BLOOD UREA NITROGEN 17 MG/DL (7-18); BUN/CREATININE RATIO 24; CALCIUM 8.9 MG/DL (8.5-10.1); CARBON DIOXIDE 29 MMOL/L (21-32); CHLORIDE 97 MMOL/L (98-107); CREATININE SERUM 0.72 MG/DL (0.60-1.30); GFR ESTIMATED > 60; GLUCOSE 161 MG/DL (70-105); MAGNESIUM 1.8 MG/DL (1.8-2.4); POTASSIUM 3.7 MMOL/L (3.6-5.0); SODIUM 135 MMOL/L (135-145)
[2017-03-08 11:34] LABS: BASOPHILS % (AUTO) 0 % (0-10); EOSINOPHILS % (AUTO) 0 % (0-10); LYMPHOCYTES # (AUTO) 0.4 X 10^3 (1.0-4.0); LYMPHOCYTES % (AUTO) 6 % (12-44); MEAN CORPUSCULAR HEMOGLOBIN 32 PG (25-34); MEAN CORPUSCULAR HGB CONC 34 G/DL (32-36); MEAN CORPUSCULAR VOLUME 95 FL (80-99); MEAN PLATELET VOLUME 9.1 FL (7.4-10.4); MONOCYTES # (AUTO) 0.6 X 10^3 (0.0-1.0); MONOCYTES % (AUTO) 9 % (0-12); NEUTROPHILS # (AUTO) 5.4 X 10^3 (1.8-7.8); NEUTROPHILS % (AUTO) 85 % (42-75); PLATELET COUNT 207 10^3/uL (130-400); RED BLOOD COUNT 2.63 10^6/uL (4.35-5.85); RED CELL DISTRIBUTION WIDTH 14.7 % (10.0-14.5); WHITE BLOOD COUNT 6.4 10^3/uL (4.3-11.0)
[2017-03-08 11:51] LABS: ANION GAP 11 MMOL/L (5-14); BLOOD UREA NITROGEN 20 MG/DL (7-18); BUN/CREATININE RATIO 24 (0-20); CALCIUM 8.4 MG/DL (8.5-10.1); CARBON DIOXIDE 25 MMOL/L (21-32); CHLORIDE 95 MMOL/L (98-107); CREATININE SERUM 0.83 MG/DL (0.60-1.30); GFR ESTIMATED > 60; GLUCOSE 194 MG/DL (70-105); POTASSIUM 3.6 MMOL/L (3.6-5.0); SODIUM 131 MMOL/L (135-145)
[2017-03-08 14:21] LABS: BILIRUBIN,URINE NEGATIVE (NEGATIVE); KETONES,URINE NEGATIVE (NEGATIVE); LEUKOCYTE ESTERASE ,URINE 3+ (NEGATIVE); NITRITE,URINE NEGATIVE (NEGATIVE); PH,URINE 7 (5-9); PROTEIN,URINE 4+ (NEGATIVE); UROBILINOGEN,URINE NORMAL (NORMAL)
[2017-03-08 14:29] LABS: WBC,URINE TNTC /HPF
[2017-03-11 09:53] LABS: BASOPHILS % (AUTO) 0 % (0-10); EOSINOPHILS % (AUTO) 0 % (0-10); LYMPHOCYTES # (AUTO) 0.7 X 10^3 (1.0-4.0); LYMPHOCYTES % (AUTO) 8 % (12-44); MEAN CORPUSCULAR HEMOGLOBIN 32 PG (25-34); MEAN CORPUSCULAR HGB CONC 33 G/DL (32-36); MEAN CORPUSCULAR VOLUME 97 FL (80-99); MEAN PLATELET VOLUME 9.6 FL (7.4-10.4); MONOCYTES # (AUTO) 0.5 X 10^3 (0.0-1.0); MONOCYTES % (AUTO) 6 % (0-12); NEUTROPHILS # (AUTO) 6.8 X 10^3 (1.8-7.8); NEUTROPHILS % (AUTO) 86 % (42-75); PLATELET COUNT 255 10^3/uL (130-400); RED BLOOD COUNT 2.51 10^6/uL (4.35-5.85); RED CELL DISTRIBUTION WIDTH 14.9 % (10.0-14.5)
[2017-03-11 10:09] LABS: ANION GAP 14 MMOL/L (5-14); BLOOD UREA NITROGEN 17 MG/DL (7-18); BUN/CREATININE RATIO 20 (0-20); CALCIUM 8.9 MG/DL (8.5-10.1); CARBON DIOXIDE 24 MMOL/L (21-32); CHLORIDE 98 MMOL/L (98-107); CREATININE SERUM 0.85 MG/DL (0.60-1.30); GFR ESTIMATED > 60; GLUCOSE 176 MG/DL (70-105); POTASSIUM 3.5 MMOL/L (3.6-5.0); SODIUM 136 MMOL/L (135-145)
[2017-03-16 09:44] LABS: BASOPHILS % (AUTO) 0 % (0-10); EOSINOPHILS % (AUTO) 0 % (0-10); LYMPHOCYTES % (AUTO) 14 % (12-44); MEAN CORPUSCULAR HEMOGLOBIN 32 PG (25-34); MEAN CORPUSCULAR HGB CONC 33 G/DL (32-36); MEAN CORPUSCULAR VOLUME 99 FL (80-99); MEAN PLATELET VOLUME 9.4 FL (7.4-10.4); MONOCYTES # (AUTO) 0.6 X 10^3 (0.0-1.0); MONOCYTES % (AUTO) 8 % (0-12); NEUTROPHILS # (AUTO) 5.8 X 10^3 (1.8-7.8); NEUTROPHILS % (AUTO) 78 % (42-75); PLATELET COUNT 277 10^3/uL (130-400); WHITE BLOOD COUNT 7.4 10^3/uL (4.3-11.0)
[2017-03-16 10:10] LABS: ALANINE AMINOTRANSFERASE 23 U/L (0-55); ALBUMIN 3.4 GM/DL (3.2-4.5); ANION GAP 12 MMOL/L (5-14); ASPARTATE AMINO TRANSFERASE 15 U/L (5-34); BILIRUBIN,TOTAL 0.5 MG/DL (0.1-1.0); BLOOD UREA NITROGEN 19 MG/DL (7-18); BUN/CREATININE RATIO 23 (0-20); CALCIUM 9.2 MG/DL (8.5-10.1); CARBON DIOXIDE 27 MMOL/L (21-32); CHLORIDE 98 MMOL/L (98-107); CREATININE SERUM 0.82 MG/DL (0.60-1.30); GFR ESTIMATED > 60; GLUCOSE 140 MG/DL (70-105); HEMOLYSIS 4 (-100-29); ICTERUS 0.9 (-100-1.9); LIPEMIA 14 (-100-49); MAGNESIUM 1.7 MG/DL (1.8-2.4); POTASSIUM 3.5 MMOL/L (3.6-5.0); SODIUM 137 MMOL/L (135-145); TOTAL PROTEIN 6.1 GM/DL (6.4-8.2)
[2017-04-01 15:13] LABS: BILIRUBIN,URINE NEGATIVE (NEGATIVE); KETONES,URINE NEGATIVE (NEGATIVE); LEUKOCYTE ESTERASE ,URINE 3+ (NEGATIVE); NITRITE,URINE NEGATIVE (NEGATIVE); PH,URINE 6 (5-9); PROTEIN,URINE 3+ (NEGATIVE); UROBILINOGEN,URINE NORMAL (NORMAL)
[2017-04-01 15:14] LABS: WBC,URINE TNTC /HPF
[~2017-04-07] VITALS: Ht 172.7 cm; Wt 79.8 kg
[~2017-04-07 10:39] MED LIST changes: +ACETAMINOPHEN 500 MG TAB (TYLENOL) CANCER CTR ONE; +DOCETAXEL IV SCH; +FAMOTIDINE 20MG/2ML IV (CANCER CTR) IV SCH; +NS (IVPB) CANCER CENTER 250 ML ONE; +NS IV 500 ML (CANCER CENTER) IV SCH; +NS IV SCH; +PALONOSETRON 0.25 MG, DEXAMETHASONE 10 MG/NS 50 ML IVPB IV PRN; -PANT40TA2 PO; +diphenhydrAMINE 25 MG TAB (BENADRYL) CANCER CENTER PO SCH
[2017-04-07 10:54] LABS: BASOPHILS % (AUTO) 0 % (0-10); EOSINOPHILS # (AUTO) 0.1 10^3/uL (0.0-0.3); EOSINOPHILS % (AUTO) 1 % (0-10); LYMPHOCYTES # (AUTO) 0.7 X 10^3 (1.0-4.0); LYMPHOCYTES % (AUTO) 15 % (12-44); MEAN CORPUSCULAR HEMOGLOBIN 32 PG (25-34); MEAN CORPUSCULAR HGB CONC 33 G/DL (32-36); MEAN CORPUSCULAR VOLUME 95 FL (80-99); MEAN PLATELET VOLUME 8.2 FL (7.4-10.4); MONOCYTES # (AUTO) 0.5 X 10^3 (0.0-1.0); MONOCYTES % (AUTO) 10 % (0-12); NEUTROPHILS # (AUTO) 3.7 X 10^3 (1.8-7.8); NEUTROPHILS % (AUTO) 74 % (42-75); PLATELET COUNT 230 10^3/uL (130-400); RED BLOOD COUNT 3.15 10^6/uL (4.35-5.85); RED CELL DISTRIBUTION WIDTH 18.2 % (10.0-14.5); WHITE BLOOD COUNT 4.9 10^3/uL (4.3-11.0)
[2017-04-07 11:48] LABS: ALANINE AMINOTRANSFERASE 12 U/L (0-55); ALBUMIN 3.3 GM/DL (3.2-4.5); ANION GAP 10 MMOL/L (5-14); ASPARTATE AMINO TRANSFERASE 12 U/L (5-34); BILIRUBIN,TOTAL 0.4 MG/DL (0.1-1.0); BLOOD UREA NITROGEN 13 MG/DL (7-18); BUN/CREATININE RATIO 17; CALCIUM 9.1 MG/DL (8.5-10.1); CARBON DIOXIDE 28 MMOL/L (21-32); CHLORIDE 99 MMOL/L (98-107); CREATININE SERUM 0.77 MG/DL (0.60-1.30); GFR ESTIMATED > 60; GLUCOSE 132 MG/DL (70-105); POTASSIUM 3.6 MMOL/L (3.6-5.0); SODIUM 137 MMOL/L (135-145); TOTAL PROTEIN 6.1 GM/DL (6.4-8.2)
== END 2017-05-03 | disposition home or self-care (01) ==
LOC: ONC 10:39
PROVIDERS: ATTEND Internal Medicine Hematology & Oncology
DX: Z51.11 Encounter for antineoplastic chemotherapy (principal); C61 Malignant neoplasm of prostate; C79.51 Secondary malignant neoplasm of bone; Z79.899 Other long term (current) drug therapy
CPT/HCPCS: 36415; 36430; 72170; 73502; 80048; 80053; 81000; 83735; 84153; 85025; 86850; 86900; 86901; 86920; 87088; 87186; 96375; 96413; 99213

== ENCOUNTER → 2017-04-14 | Outpatient (CLI) | payer MEDICARE ==
[~2017-04-14] MED LIST changes: -ACETAMINOPHEN 500 MG TAB (TYLENOL) CANCER CTR ONE; -DOCETAXEL IV SCH; -FAMOTIDINE 20MG/2ML IV (CANCER CTR) IV SCH; -NS (IVPB) CANCER CENTER 250 ML ONE; -NS IV 500 ML (CANCER CENTER) IV SCH; -NS IV SCH; -PALONOSETRON 0.25 MG, DEXAMETHASONE 10 MG/NS 50 ML IVPB IV PRN; +PANT40TA2 PO; -diphenhydrAMINE 25 MG TAB (BENADRYL) CANCER CENTER PO SCH
--- NOTE | 2017-04-14 16:43 | Diagnostic Imaging Report ---
CLINICAL INDICATION: Patient states that he woke up twice this morning with back pain. No known injury. EXAM: X-ray of the thoracic spine, 4 views including swimmer's view. COMPARISON: None. FINDINGS: There is limited visualization of the upper thoracic vertebra on lateral view due to overlapping bone and soft tissue. There is no acute thoracic spine fracture or dislocation seen on this exam. There is moderate to severely hypertrophic spur seen throughout the visualized thoracic spine, upper lumbar spine, and cervical spine. Cardiac pacemaker is seen overlying left chest with 2 leads projecting over the heart. The mediastinal and lung mckeon are unremarkable. 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 2: There is no acute fracture or dislocation. Dictated by: Dictated on workstation # [id number]
--- NOTE | 2017-04-14 17:22 | Diagnostic Imaging Report ---
INDICATION: Pain upon awakening earlier in the day. No known injury. TECHNIQUE: AP, lateral and odontoid views cervical spine.. CORRELATION STUDY: Thoracic spine imaging performed at same time. FINDINGS: 3 mm of anterolisthesis C4 on C5. Trace anterolisthesis of C7 on T1 of approximately 1 to 2 mm. Alignment is otherwise anatomic. Cervical vertebral body heights are maintained with the exception of mild anterior wedging at C5-C6 level. Wvrbhsws-[id number] disc space narrowing at C5-C6 and to lesser degree at C3-C4 and C4-C5 levels. Endplate osteophyte formation is noted with ossification along the anterior longitudinal ligament, particularly at C4-C5, C5-C6, and C6-C7 levels. Prevertebral soft tissues are unremarkable. Scattered asymmetric hypertrophic facet arthropathy is present, most pronounced at C2-C3, C3-C4, and C4-C5 levels. Odontoid is somewhat obscured but generally unremarkable. Calcification of the soft tissues of the neck, left greater than right, favoring probable carotid artery calcification. IMPRESSION: 1. Moderately advanced multilevel cervical spondylosis with disc space narrowing and endplate osteophyte formation. Dictated by: Dictated on workstation # [id number]
== END ==
LOC: RAD 14:00
PROVIDERS: ATTEND Nurse Practitioner Family
DX: M47.814 Spondylosis without myelopathy or radiculopathy, thoracic region (principal); M47.812 Spondylosis without myelopathy or radiculopathy, cervical region; Z95.0 Presence of cardiac pacemaker
CPT/HCPCS: 72040; 72072

== ENCOUNTER → 2017-05-10 | Outpatient (CLI) | payer MEDICARE ==
[2017-05-11 07:48] LABS: H PYLOR IGG INT Negative (Negative)
== END ==
LOC: LAB 10:12
PROVIDERS: ATTEND Family Medicine
DX: K21.9 Gastro-esophageal reflux disease without esophagitis (principal); R73.09 Other abnormal glucose
CPT/HCPCS: 36415; 83036; 84443; 86677

== ENCOUNTER → 2017-05-11 | Outpatient (CLI) | payer MEDICARE ==
[~2017-05-11] MED LIST changes: -PANT40TA2 PO
--- NOTE | 2017-05-11 13:52 | Diagnostic Imaging Report ---
EXAMINATION: Scrotal ultrasound. INDICATION: Right scrotal enlargement. FINDINGS: There are no previous studies available for comparison. Both testicles are identified. The right testicle measures 4.8 x 2.6 x 2.7 cm while the left testicle is estimated to be 4.6 x 1.6 x 2.1 cm. There is no evidence for a solid testicular mass and there is no sign of torsion; however, within the right testicle superiorly there is a 2.5 x 1.9 x 1.6 cm anechoic well-circumscribed mass. This does suggest a cyst. There is no evidence for epididymitis. There are small bilateral hydroceles. IMPRESSION: 1. There is no evidence for a solid testicular mass or torsion; however, there does appear to be a 2.5 x 1.9 x 1.6 cm benign-appearing cyst in the superior pole of the right testicle. 2. There is no acute abnormality identified otherwise. 3. There are small bilateral hydroceles. Dictated by: Dictated on workstation # [id number]
== END ==
LOC: RAD 11:05
PROVIDERS: ATTEND Family Medicine
DX: N43.3 Hydrocele, unspecified (principal); N44.2 Benign cyst of testis
CPT/HCPCS: 76870

== ENCOUNTER 2017-06-14 13:52 | Outpatient (RCR) | payer MEDICARE ==
[2017-05-10 10:26] LABS: BASOPHILS % (AUTO) 1 % (0-10); EOSINOPHILS # (AUTO) 0.2 10^3/uL (0.0-0.3); EOSINOPHILS % (AUTO) 4 % (0-10); LYMPHOCYTES # (AUTO) 0.8 X 10^3 (1.0-4.0); LYMPHOCYTES % (AUTO) 20 % (12-44); MEAN CORPUSCULAR HEMOGLOBIN 33 PG (25-34); MEAN CORPUSCULAR HGB CONC 35 G/DL (32-36); MEAN CORPUSCULAR VOLUME 95 FL (80-99); MEAN PLATELET VOLUME 8.1 FL (7.4-10.4); MONOCYTES # (AUTO) 0.3 X 10^3 (0.0-1.0); MONOCYTES % (AUTO) 9 % (0-12); NEUTROPHILS # (AUTO) 2.7 X 10^3 (1.8-7.8); NEUTROPHILS % (AUTO) 67 % (42-75); PLATELET COUNT 245 10^3/uL (130-400); RED BLOOD COUNT 3.09 10^6/uL (4.35-5.85); RED CELL DISTRIBUTION WIDTH 15.8 % (10.0-14.5)
[2017-05-10 10:58] LABS: ALANINE AMINOTRANSFERASE 11 U/L (0-55); ALBUMIN 3.6 GM/DL (3.2-4.5); ANION GAP 11 MMOL/L (5-14); ASPARTATE AMINO TRANSFERASE 16 U/L (5-34); BILIRUBIN,TOTAL 0.4 MG/DL (0.1-1.0); BLOOD UREA NITROGEN 12 MG/DL (7-18); BUN/CREATININE RATIO 17; CALCIUM 9.8 MG/DL (8.5-10.1); CARBON DIOXIDE 26 MMOL/L (21-32); CHLORIDE 99 MMOL/L (98-107); CREATININE SERUM 0.69 MG/DL (0.60-1.30); GFR ESTIMATED > 60; GLUCOSE 127 MG/DL (70-105); POTASSIUM 3.9 MMOL/L (3.6-5.0); SODIUM 136 MMOL/L (135-145); TOTAL PROTEIN 6.3 GM/DL (6.4-8.2)
[2017-06-14 14:04] LABS: BASOPHILS % (AUTO) 0 % (0-10); EOSINOPHILS # (AUTO) 0.2 10^3/uL (0.0-0.3); EOSINOPHILS % (AUTO) 5 % (0-10); LYMPHOCYTES # (AUTO) 0.9 X 10^3 (1.0-4.0); LYMPHOCYTES % (AUTO) 18 % (12-44); MEAN CORPUSCULAR HEMOGLOBIN 33 PG (25-34); MEAN CORPUSCULAR HGB CONC 35 G/DL (32-36); MEAN CORPUSCULAR VOLUME 94 FL (80-99); MEAN PLATELET VOLUME 8.2 FL (7.4-10.4); MONOCYTES # (AUTO) 0.4 X 10^3 (0.0-1.0); MONOCYTES % (AUTO) 8 % (0-12); NEUTROPHILS # (AUTO) 3.2 X 10^3 (1.8-7.8); NEUTROPHILS % (AUTO) 69 % (42-75); PLATELET COUNT 231 10^3/uL (130-400); RED BLOOD COUNT 2.98 10^6/uL (4.35-5.85); RED CELL DISTRIBUTION WIDTH 14.5 % (10.0-14.5); WHITE BLOOD COUNT 4.7 10^3/uL (4.3-11.0)
[2017-06-14 14:56] LABS: ALANINE AMINOTRANSFERASE 10 U/L (0-55); ALBUMIN 3.9 GM/DL (3.2-4.5); ANION GAP 11 MMOL/L (5-14); ASPARTATE AMINO TRANSFERASE 14 U/L (5-34); BILIRUBIN,TOTAL 0.4 MG/DL (0.1-1.0); BLOOD UREA NITROGEN 20 MG/DL (7-18); BUN/CREATININE RATIO 23; CALCIUM 9.7 MG/DL (8.5-10.1); CARBON DIOXIDE 24 MMOL/L (21-32); CHLORIDE 98 MMOL/L (98-107); CREATININE SERUM 0.87 MG/DL (0.60-1.30); GFR ESTIMATED > 60; GLUCOSE 156 MG/DL (70-105); POTASSIUM 4.1 MMOL/L (3.6-5.0); SODIUM 133 MMOL/L (135-145); TOTAL PROTEIN 6.1 GM/DL (6.4-8.2)
[2017-06-14] MEDS ORDERED: DENOSUMAB 120 MG/1.7 ML (XGEVA) SQ SCH (16:15)
[2017-06-22] MEDS ORDERED: PANT40TA2 PO (11:52)
== END 2017-06-25 | disposition home or self-care (01) ==
LOC: ONC 13:52
PROVIDERS: ATTEND Internal Medicine Hematology & Oncology
DX: C61 Malignant neoplasm of prostate; Z79.899 Other long term (current) drug therapy; C79.51 Secondary malignant neoplasm of bone
CPT/HCPCS: 36415; 80053; 84153; 85025; 96372; 99213

== ENCOUNTER → 2017-06-14 | Outpatient (CLI) | payer MEDICARE ==
--- NOTE | 2017-06-14 19:12 | Diagnostic Imaging Report ---
EXAMINATION: AP and frog leg lateral views of the right hip. INDICATION: Right hip pain. FINDINGS: There is a 9 mm sclerotic focus seen in the acetabulum. This appears to be present on topogram from CT of 03/12/2016 without change and is perhaps related to a bone island. No fracture or dislocation. Mild degenerative changes in the right hip and right SI joints is seen. IMPRESSION: A 9 mm sclerotic focus in the right acetabulum is unchanged from 03/12/2016 exam. This could be related to a bony island although early sclerotic metastasis is not ruled out. Correlate with followup exams. Dictated by: Dictated on workstation # [id number]
--- NOTE | 2017-06-14 20:03 | Diagnostic Imaging Report ---
Two views of the right femur. INDICATION: Right hip pain. History of prostate cancer. FINDINGS: No fracture, dislocation or radiopaque foreign body is seen. A 9 mm sclerotic focus in the right acetabulum is a nonspecific finding. Early metastasis cannot be ruled out. Correlate with followup exams. IMPRESSION: No acute process. Nonspecific 9 mm sclerotic focus in the right acetabulum could be a bone island or early prostate metastasis. Correlate with followup exams. Dictated by: Dictated on workstation # [id number]
== END ==
LOC: RAD 15:57
PROVIDERS: ATTEND Nurse Practitioner Adult Health
DX: M89.9 Disorder of bone, unspecified (principal); Z85.46 Personal history of malignant neoplasm of prostate
CPT/HCPCS: 73502; 73552

== ENCOUNTER 2017-06-20 05:38 | Outpatient (CLI) | payer MEDICARE ==
[~2017-06-20] VITALS: Ht 170.2 cm; Wt 79.1 kg
[~2017-06-20 05:38] MED LIST changes: -IOHEXOL 350 MG/ML 100 ML (OMNIPAQUE 350) VIAL IV ONE; -NS 100 ML (IVPB) BAG IV ONE; -PANT40TA2 PO
== END 2017-06-20 15:32 ==
LOC: PREOP 05:38
PROVIDERS: ATTEND Surgery
DX: Z01.818 Encounter for other preprocedural examination (principal); Z87.19 Personal history of other diseases of the digestive system

== ENCOUNTER → 2017-06-20 | Outpatient (CLI) | payer MEDICARE ==
[~2017-06-20] MED LIST changes: +IOHEXOL 350 MG/ML 100 ML (OMNIPAQUE 350) VIAL IV ONE; +NS 100 ML (IVPB) BAG IV ONE; +PANT40TA2 PO
--- NOTE | 2017-06-20 13:58 | Diagnostic Imaging Report ---
PROCEDURE: CT thoracic and lumbar spine with and without contrast. TECHNIQUE: CT imaging of the thoracic and lumbar spine before and after the administration of intravenous contrast. INDICATION: Prostate cancer. 100 mL of Omnipaque-350 is administered intravenously. FINDINGS: CT thoracic spine: The alignment of the posterior spinal line and facet joints is satisfactory. There is significant sclerotic replacement of multiple vertebral bodies with poorly defined lesions involving most of the vertebral body in T12 level and significant portion of the vertebral bodies in the other levels in the thoracic spine. There is mild compression fracture involving the T5 vertebral body with depression of the superior endplate along the left side aspect of this vertebral body. When compared to 01/25/2017, it appears that there is slight increase in the poorly defined sclerotic areas within the thoracic spine. The T5 vertebral body was not well imaged previously on the routine chest protocol with the timing of the depressed fracture of the upper endplate not well determined. CT lumbar spine: The alignment of the posterior spinal line is satisfactory. There is a minimal compression fracture of T5 vertebral body with suggestion of acute or subacute occurrence. 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 As in the thoracic spine, there are diffuse sclerotic changes in the lumbar spine vertebrae which appear increased compared to previous study suggestive of metastasis. There is also suggestion of prominent disc herniations at the L2-L3, L3-L4, L4-L5, and L5-S1 levels. There is suggestion of significant spinal canal stenosis at L3-L4 in particular and to a lesser extent at L2-L3 levels. IMPRESSION: CT thoracic spine: 1. Suggestion of increased poorly defined and diffuse sclerotic metastasis. 2. There is suggestion of an acute to subacute depression of the superior endplate of T5 vertebral body on the left. CT lumbar spine: 1. Increased sclerotic metastasis. 2. Acute to subacute minimal compression fracture of L5 vertebral body. 3. Prominent disc disease with suggestion of spinal canal stenosis at multiple levels, most prominent at L3-L4. 4. 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 Dictated by: Dictated on workstation # [id number]
== END ==
LOC: RAD 10:14
PROVIDERS: ATTEND Internal Medicine Hematology & Oncology
DX: C61 Malignant neoplasm of prostate (principal); C79.51 Secondary malignant neoplasm of bone; M47.816 Spondylosis without myelopathy or radiculopathy, lumbar region
CPT/HCPCS: 72130; 72133

== ENCOUNTER 2017-06-22 09:23 | Day surgery (SDC) | payer MEDICARE ==
[~2017-06-22] VITALS: Ht 170.2 cm; Wt 79.1 kg
[2017-06-22] MEDS ORDERED: HURRICAINE EXT TUBE (BENZOCAINE) XX PRN (09:45)
[2017-06-22] MEDS ORDERED: LIDOCAINE JELLY 2% (XYLOCAINE) 5 ML TUBE MM PRN (09:45)
[2017-06-22 09:50] VITALS: BP 181/92
[2017-06-22] MEDS ORDERED: NS IV 500 ML 500 ML IV PRN (10:00)
[2017-06-22] MEDS ORDERED: fentaNYL INJECTION 100 MCG/2 ML AMP ONE (10:41)
[2017-06-22] MEDS ORDERED: HURRICAINE EXT TUBE (BENZOCAINE) ONE (10:41)
[2017-06-22] MEDS ORDERED: LIDOCAINE JELLY 2% (XYLOCAINE) 5 ML TUBE ONE (10:41)
[2017-06-22] MEDS ORDERED: MIDAZOLAM 2 MG/2 ML (VERSED) VIAL ONE ×3 (10:41)
--- NOTE | 2017-06-22 10:49 | Progress Note-Pre Operative ---
Pre-Operative Progress Note H&P Reviewed The H&P was reviewed, patient examined and no changes noted. Date Seen by Provider: Jun 22, 2017 Time Seen by Provider: 10:20 Date H&P Reviewed: Jun 22, 2017 Time H&P Reviewed: 10:20 Pre-Operative Diagnosis: hx Otto esophagus PINO EDWARDS MD Jun 22, 2017 10:49 am
--- NOTE | 2017-06-22 10:49 | Conscious Sedation/ASA ---
Conscious Sedation Pre-Proced Time Reviewed: 10:20 ASA Class: 2 Airway Mallampati Classification: ([place] appropriate class) I. II. III, IV Lungs Heart ASA score ASA 1: a normal healthy patient ASA 2: a patient with a mild systemic disease (mid diabetes, controlled hypertension, obesity ASA 3: a patient with a severe systemic disease that limits activity (angina , COPD, prior Myocardial infarction) ASA 4: a patient with an incapacitating disease that is a constant threat to life (CHF, renal failure) ASA 5: a moribund patient not expected to survive 24 hrs. (ruptured aneurysm) ASA 6: a declared brain patient whose organs are being harvested. For emergent operations, add the letter E after the classification Grade 2 Sedation Plan: Analgesia, Amnesia, Plan communicated to team members, Discussed options with patient/fam, Discussed risks with patient/fam Note The patient is an appropriate candidate to undergo the planned procedure, sedation, and anesthesia. The patient immediately re-assessed prior to indication. PINO EDWARDS MD Jun 22, 2017 10:49 am
[2017-06-22] MEDS ORDERED: HYDROcodone/APAP 5 MG/325 MG (LORTAB) TAB PO PRN (11:00)
[2017-06-22] MEDS ORDERED: ONDANSETRON 4 MG/2 ML (SDV) Z0FRAN IV PRN (11:00)
[2017-06-22] MEDS ORDERED: ACETAMINOPHEN 325 MG TABLET/CAPLET (TYLENOL) PO PRN (11:00)
[2017-06-22] MEDS ORDERED: morphine INJ 10 MG/ML 1ML (SYR OR VIAL) IV PRN (11:00)
[2017-06-22] MEDS: fentaNYL INJECTION 100 MCG/2 ML AMP IVP PRN ×2 (11:16→11:24)
[2017-06-22] MEDS: MIDAZOLAM 2 MG/2 ML (VERSED) VIAL IVP PRN ×2 (11:17→11:25)
--- NOTE | 2017-06-22 11:51 | Progress Note-Post Operative ---
Post-Operative Progess Note Surgeon (s)/Grinder Set Up Operator Universal (s) Surgeon PINO EDWARDS MD Grinder Set Up Operator Universal: none Pre-Operative Diagnosis hx Otto esophagus Post-Operative Diagnosis reflux esophagus(class B), small HH(<1cm), mild-moderate gastritis. Procedure & Operative Findings Date of Procedure 06/22/17 Procedure Performed/Findings EGD with bx. Anesthesia Type CS Estimated Blood Loss Estimated blood loss (mL): minimal Specimens/Packing Specimens Removed GE jxn, antrum PINO EDWARDS MD Jun 22, 2017 11:51 am
[2017-06-22] MEDS ORDERED: PANT40TA2 PO (11:52)
--- NOTE | 2017-06-22 11:53 | Discharge Inst-Surgical ---
D/C Lap Instructions-KIDO New, Converted, or Re-Newed RX: RX on Chart Follow Up Appt 3 years Activity as tolerated High Fiber Diet 25g or more per day Avoid Alcohol, Caffeine, Spicy [place] and Acid foods. Drink 64 fluid oz or more of fluids per day. Symptoms to Report: Fever over 101 degree F, Nausea/Vomiting If any problems/questions: Contact your physician or go to Emergency Room PINO EDWARDS MD Jun 22, 2017 11:53 am
[2017-06-22 12:05] VITALS: BP 119/75
[2017-06-22 12:35] VITALS: BP 117/53
[2017-06-22 12:50] VITALS: BP 117/53
--- NOTE | 2017-06-22 23:24 | OPERATIVE REPORT ---
DATE OF SERVICE: 06/22/2017 ATTENDING PRIMARY CARE PHYSICIAN: Dr. Gabriela Maldonado. PREOPERATIVE DIAGNOSIS: History of Otto's esophagus and gastroesophageal reflux disease. POSTOPERATIVE DIAGNOSES: Reflux esophagitis class B. There was a slight cephalad migration of the gastroesophageal junction. Small hiatal hernia, less than 1 cm in size, mild to moderate gastritis. PROCEDURE: EGD with biopsy. SURGEON: Dr. Edwards. ANESTHESIA: Conscious sedation. ESTIMATED BLOOD LOSS: Minimal. FINDINGS: Reflux esophagitis class B with cephalad migration of the gastroesophageal junction, which may indicate a potential Otto's esophagus. No ulcers or strictures. A small hiatal hernia, less than 1 cm in size, mild to moderate gastritis. Pylorus and duodenum appeared normal. DISPOSITION: The patient tolerated the procedure well. INDICATIONS: The patient is an 87-year-old male with a history of gastroesophageal reflux disease. This was initially mild; however, as he has gotten older his symptoms have worsened. He underwent previous EGDs and was found to have Otto's esophagus. He reports that for the most part he is doing well and is not experiencing any episodes of dysphagia. He states that he has also taken Carafate, which does help with his reflux type of symptoms. DESCRIPTION OF PROCEDURE: The patient was brought to the endoscopy suite, laid in the left lateral decubitus position. After adequate IV pain and sedating medications and conscious sedation anesthesia, the mouthpiece was applied. The endoscope was then placed in the mouth visualizing the pharynx and hypopharyngeal region. Vocal cords, epiglottis and vallecula were identified and appeared to be normal. The endoscope was then gently intubated at the esophageal opening and esophagus insufflated. The endoscope was then advanced to the first, second and third portions of the esophagus to the level of the GE junction, a reflux esophagitis class B identified. There was a cephalad migration of the columnar epithelium identified visually. There were no ulcers or strictures in this region. A biopsy was taken with forceps with visualization of good hemostasis. The endoscope was then easily advanced in the stomach and then endoscope retroflexed, visualizing a small hiatal hernia approximately 1 cm in size. A mild to moderate gastritis was identified more towards the stomach antrum. There were no formal ulcers, polyps or any neoplasms identified. A biopsy was taken of the stomach antrum with visualization of good hemostasis. The endoscope was then advanced to the pylorus into the first and second portion of duodenum which appeared normal. No distal obstructions identified. The endoscope was then slowly withdrawn while taking a second look and suctioning of residual air with no additional findings. The patient tolerated the procedure well. We will have him continue with medical management with the necessary lifestyle and diet accommodation including small and more frequent meals, avoidance of eating at night as well as head elevation while laying supine. He also needs to avoid caffeinated beverages, spicy, greasy and acidic foods. 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 Job ID: [id number] DocumentID: [id number] Dictated Date: 06/22/2017 11:51:13 Juvenile Justice Officer Date: 06/22/2017 23:24:23 Dictated By: PINO EDWARDS MD
== END 2017-06-22 12:50 | disposition home or self-care (01) ==
LOC: ENDO 09:23
PROVIDERS: ATTEND Surgery
DX: K21.0 Gastro-esophageal reflux disease with esophagitis (principal); K44.9 Diaphragmatic hernia without obstruction or gangrene; K29.70 Gastritis, unspecified, without bleeding; I10 Essential (primary) hypertension; E78.5 Hyperlipidemia, unspecified; C61 Malignant neoplasm of prostate; C79.51 Secondary malignant neoplasm of bone; Z95.0 Presence of cardiac pacemaker; Z79.899 Other long term (current) drug therapy

== ENCOUNTER 2017-07-22 09:42 | Outpatient (RCR) | payer MEDICARE ==
[2017-07-12 13:28] LABS: BASOPHILS % (AUTO) 0 % (0-10); EOSINOPHILS # (AUTO) 0.1 10^3/uL (0.0-0.3); EOSINOPHILS % (AUTO) 2 % (0-10); LYMPHOCYTES # (AUTO) 0.7 X 10^3 (1.0-4.0); LYMPHOCYTES % (AUTO) 22 % (12-44); MEAN CORPUSCULAR HEMOGLOBIN 32 PG (25-34); MEAN CORPUSCULAR HGB CONC 34 G/DL (32-36); MEAN CORPUSCULAR VOLUME 94 FL (80-99); MEAN PLATELET VOLUME 8.7 FL (7.4-10.4); MONOCYTES # (AUTO) 0.3 X 10^3 (0.0-1.0); MONOCYTES % (AUTO) 8 % (0-12); NEUTROPHILS # (AUTO) 2.3 X 10^3 (1.8-7.8); NEUTROPHILS % (AUTO) 68 % (42-75); PLATELET COUNT 152 10^3/uL (130-400); RED BLOOD COUNT 2.36 10^6/uL (4.35-5.85); RED CELL DISTRIBUTION WIDTH 15.6 % (10.0-14.5); WHITE BLOOD COUNT 3.3 10^3/uL (4.3-11.0)
[2017-07-12 13:44] LABS: ALANINE AMINOTRANSFERASE 9 U/L (0-55); ALBUMIN 3.7 GM/DL (3.2-4.5); ANION GAP 11 MMOL/L (5-14); ASPARTATE AMINO TRANSFERASE 20 U/L (5-34); BILIRUBIN,TOTAL 0.5 MG/DL (0.1-1.0); BLOOD UREA NITROGEN 19 MG/DL (7-18); BUN/CREATININE RATIO 26; CALCIUM 8.8 MG/DL (8.5-10.1); CARBON DIOXIDE 23 MMOL/L (21-32); CHLORIDE 98 MMOL/L (98-107); CREATININE SERUM 0.72 MG/DL (0.60-1.30); GFR ESTIMATED > 60; GLUCOSE 138 MG/DL (70-105); POTASSIUM 4.1 MMOL/L (3.6-5.0); SODIUM 132 MMOL/L (135-145); TOTAL PROTEIN 6.6 GM/DL (6.4-8.2)
[~2017-07-22 09:42] MED LIST changes: +ACETAMINOPHEN 500 MG TAB (TYLENOL) CANCER CTR ONE; +DENOSUMAB 120 MG/1.7 ML (XGEVA) SQ SCH; +NS IV 500 ML (CANCER CENTER) 500 ML ONE; +PANT40TA2 PO
== END 2017-08-09 11:01 | disposition home or self-care (01) ==
LOC: ONC 09:42
PROVIDERS: ATTEND Internal Medicine Hematology & Oncology
DX: C61 Malignant neoplasm of prostate (principal); C79.51 Secondary malignant neoplasm of bone; Z51.0 Encounter for antineoplastic radiation therapy
CPT/HCPCS: 36415; 36430; 77290; 77295; 77300; 77307; 77334; 77336; 77417; 80053; 85025; 86850; 86900; 86901; 86920; 99213; 99214

== ENCOUNTER 2017-08-10 13:23 | Outpatient (RCR) | payer MEDICARE ==
[~2017-08-10 13:23] MED LIST changes: -ACETAMINOPHEN 500 MG TAB (TYLENOL) CANCER CTR ONE; -DENOSUMAB 120 MG/1.7 ML (XGEVA) SQ SCH; -NS IV 500 ML (CANCER CENTER) 500 ML ONE
[2017-08-10 13:46] LABS: BASOPHILS % (AUTO) 1 % (0-10); EOSINOPHILS # (AUTO) 0.1 10^3/uL (0.0-0.3); EOSINOPHILS % (AUTO) 4 % (0-10); LYMPHOCYTES # (AUTO) 0.5 X 10^3 (1.0-4.0); LYMPHOCYTES % (AUTO) 21 % (12-44); MEAN CORPUSCULAR HGB CONC 35 G/DL (32-36); MEAN CORPUSCULAR VOLUME 94 FL (80-99); MEAN PLATELET VOLUME 9.7 FL (7.4-10.4); MONOCYTES # (AUTO) 0.3 X 10^3 (0.0-1.0); MONOCYTES % (AUTO) 10 % (0-12); NEUTROPHILS # (AUTO) 1.7 X 10^3 (1.8-7.8); NEUTROPHILS % (AUTO) 65 % (42-75); PLATELET COUNT 70 10^3/uL (130-400); RED BLOOD COUNT 1.94 10^6/uL (4.35-5.85); WHITE BLOOD COUNT 2.6 10^3/uL (4.3-11.0)
[2017-08-10 13:47] LABS: HEMOGLOBIN 6.3 G/DL (13.3-17.7); MEAN CORPUSCULAR HEMOGLOBIN 32 PG (25-34)
[2017-08-10 13:48] LABS: HEMATOCRIT 18 % (40-54)
[2017-08-10 14:02] LABS: ALANINE AMINOTRANSFERASE 12 U/L (0-55); ALBUMIN 3.6 GM/DL (3.2-4.5); ALKALINE PHOSPHATASE 102 U/L (40-136); BILIRUBIN,TOTAL 0.6 MG/DL (0.1-1.0); BUN/CREATININE RATIO 22; CALCIUM 8.4 MG/DL (8.5-10.1); CARBON DIOXIDE 23 MMOL/L (21-32); CHLORIDE 99 MMOL/L (98-107); CREATININE SERUM 0.81 MG/DL (0.60-1.30); GFR ESTIMATED > 60; GLUCOSE 138 MG/DL (70-105); POTASSIUM 4.5 MMOL/L (3.6-5.0); SODIUM 131 MMOL/L (135-145); TOTAL PROTEIN 5.9 GM/DL (6.4-8.2)
[2017-08-10] MEDS ORDERED: NS (IVPB) CANCER CENTER 250 ML ONE (14:54)
[2017-08-10] MEDS ORDERED: ACETAMINOPHEN 500 MG TAB (TYLENOL) CANCER CTR ONE (14:58)
[2017-09-05] MEDS ORDERED: MULT1TAB69 PO (18:24)
[2017-09-05] MEDS ORDERED: ONDA8TAB12 PO (18:24)
[2017-09-05] MEDS ORDERED: CHOL10007 PO (18:24)
[2017-09-05] MEDS ORDERED: CETI10TA17 PO (18:24)
[2017-09-05] MEDS ORDERED: CALC-140 PO (18:24)
[2017-09-05] MEDS ORDERED: ASPI-983 PO (18:24)
[2017-09-05] MEDS ORDERED: SUCR1TAB PO (18:24)
[2017-09-05] MEDS ORDERED: POTA10TA10 PO (18:24)
[2017-09-05] MEDS ORDERED: PANT40TA3 PO (18:24)
[2017-09-05] MEDS ORDERED: VITAMIN B-12 PO (18:24)
[2017-09-05] MEDS ORDERED: METO-370 PO (18:24)
[2017-09-05] MEDS ORDERED: OMEG-160 PO (18:24)
[2017-09-05] MEDS ORDERED: HYDR25TA4 PO (18:24)
== END 2017-11-08 | disposition home or self-care (01) ==
LOC: ONC 13:23
PROVIDERS: ATTEND Internal Medicine Hematology & Oncology
DX: C61 Malignant neoplasm of prostate (principal); C79.51 Secondary malignant neoplasm of bone; D64.9 Anemia, unspecified; I48.0 Paroxysmal atrial fibrillation; I25.10 Atherosclerotic heart disease of native coronary artery without angina pectoris; I10 Essential (primary) hypertension; E78.00 Pure hypercholesterolemia, unspecified; E78.1 Pure hyperglyceridemia; I08.1 Rheumatic disorders of both mitral and tricuspid valves; Z79.82 Long term (current) use of aspirin; Z79.899 Other long term (current) drug therapy
CPT/HCPCS: 36415; 36430; 80053; 85025; 86850; 86900; 86901; 86920

== ENCOUNTER 2017-09-05 14:38 | Inpatient (IN) | payer MEDICARE ==
[2017-09-05] VITALS (7 sets, daily range): BP systolic 137–184; BP diastolic 65–75
[~2017-09-05] VITALS: Ht 170.2 cm; Wt 79.1 kg
--- NOTE | 2017-09-05 14:50 | ED Neurological Problem ---
General Stated Complaint: FALL Source: patient Exam Limitations: no limitations History of Present Illness Time seen by provider: 14:47 Initial Comments To ER with reports of a fall while at home today. He was going inside to eat lunch and he felt as though he "wasn't all there". I asked him to describe this and he states that he felt confused. He also states that he's had some nausea for the past week and "trouble getting food to go down". Denies any sensation of having difficulty with swallowing however. He states that he felt generally weak but did not notice any unilateral weakness. He finished chemotherapy about 3 months ago for prostate cancer that has metastasized to the right hip region. He feels a little better now but still doesn't feel quite right he states. His is present here and states that she witnessed this episode at home and during this episode of "confusion" he was mumbling and she couldn't understand what he was saying. Timing/Duration: 1-3 hours Severity: moderate Associated Symptoms: confusion, nausea/vomiting (nausea without vomiting) Allergies and Home Medications Allergies Coded Allergies: clindamycin (Verified Allergy, Severe, COULDN'T SWALLOW, 06/28/16) adhesive (Verified Allergy, Intermediate, Rash, 05/09/14) amoxicillin (Verified Allergy, Intermediate, NAUSEA, 06/30/16) REPORTS SEVERE N/V clavulanic acid (Verified Allergy, Intermediate, NAUSEA, 06/30/16) REPORTS SEVERE N/V Home Medications Aspirin 81 Mg Tablet.dr, 81 MG PO HS, (Reported) Calcium Carbonate/Vitamin D3 1 Each Tablet, 2 TAB PO DAILY, (Reported) Hydrochlorothiazide 25 Mg Tablet, 25 MG PO DAILY, (Reported) Losartan Potassium 100 Mg Tablet, 100 MG PO DAILY, (Reported) Metoprolol Succinate 25 Mg Tab.er.24h, 25 MG PO DAILY, (Reported) Multivitamin 1 Each Tablet, 1 TAB PO DAILY, (Reported) [place]-3/Dha/Epa/Fish Oil 1 Each Capsule.dr, 3 CAP PO DAILY, (Reported) TAKES 3 CAPS (1400MG) Pantoprazole Sodium 40 Mg Tablet.dr, 40 MG PO DAILY, #90 Prescribed by: PINO EDWARDS on 06/22/17 1152 Potassium Chloride 10 Meq Capsule.sa, 1 EACH PO DAILY WITH FOOD, #30 Prescribed by: TU WESTBROOK on 05/12/14 1500 Sucralfate 1 Gm Tab, 1 GM PO TID, (Reported) TAKE 1 HOUR PRIOR TO MEAL Constitutional: see HPI Eyes: No Symptoms Reported Ears, Nose, Mouth, Throat: no symptoms reported Respiratory: no symptoms reported Cardiovascular: no symptoms reported Genitourinary: no symptoms reported Musculoskeletal: no symptoms reported Skin: no symptoms reported Psychiatric/Neurological: See HPI, Cognitive Dysfunction, Headache Endocrine: No Symptoms Reported Hematologic/Lymphatic: No Symptoms Reported Past Owntnmz-Stsyxr-Ykzvua Hx Patient Social History Recent Hopitalizations: No Immunizations Up To Date Tetanus Booster (TDap): Unknown Date of Pneumonia Vaccine: Feb 28, 2011 Seasonal Allergies Seasonal Allergies: No Surgeries Surgeries: Appendectomy, Pacemaker Respiratory Currently Using CPAP: No Currently Using BIPAP: No Cardiovascular Cardiac Disorders: High Cholesterol, Hypertension Reproductive System Hx Reproductive Disorders: No Sexually Transmitted Disease: No HIV/AIDS: No Genitourinary Genitourinary Disorders: Prostate Problems Gastrointestinal Gastrointestinal Disorders: Gastroesophageal Reflux, Otto's Esophagus, Chronic Constipation HEENT Loss of Vision: Bilateral Hearing Impairment: Hard of Hearing Cancer Cancer: Prostate, Bone Type of Tx Receive: Chemotherapy, Other Blood Transfusions Adverse Reaction to a Blood Tr: No (N/A) Physical Exam Vital Signs Vital Sign - Last 12Hours 09/05/17 14:56 Temp 97.8 Pulse 73 Resp 22 B/P (MAP) 165/73 (103) Pulse Ox 97 O2 Delivery Room Air Capillary Refill : General Appearance: WD/WN, no apparent distress HEENT: PERRL/EOMI, normal ENT inspection Neck: non-tender, full range of motion Respiratory: normal breath sounds, no respiratory distress Cardiovascular: regular rate, rhythm, no murmur Gastrointestinal: normal bowel sounds, non tender, soft Neurologic/Psychiatric: alert, normal mood/affect, oriented x 3 [place] Nerves: normal hearing, normal speech, PERRL Coordination/Gait: normal finger to nose Skin: normal color, warm/dry Stroke Onset of Symptoms Date of Onset of Symptoms: Sep 05, 2017 Time of Symptom Onset: 12:00 Onset of Symptoms: Yes NIH Stroke Scale Assessment Select: Initial Level of Consciousness: 0=Alert (0), Level of Consciousness- Questions: 0=Answers both month/age (0), LOC Commands: 0=Performs both tasks (0) , Visual [place]: 0=No visual loss (0), Facial Movement (Facial Paresis): 0= Normal symmetrical mnt (0), Motor Function-Arms Right: 0=No drift (0), Motor Function-Arms Left: 0=No drift (0), Motor Function-Legs Right: 0=No drift (0), Motor Function-Legs Left: 0=No drift (0), Limb Ataxia: 0=Absent (0), Sensory: 0= Normal:no loss (0), Best Language: 0=No aphasia (0), Dysarthria: 0=Normal (0), Extinction & Inattention: 0=No abnormality (0), Total: 0 Stroke Thrombolytic Exclusion Age 18 or Over: Yes IV - TPa Received IV - TPa Procedure Performed?: No Progress/Results/Core Measures Results/Orders Lab Results Laboratory Tests Test 09/05/17 14:45 09/05/17 15:03 Range/Units White Blood Count 3.6 L 4.3-11.0 10^3/uL Red Blood Count 1.61 L 4.35-5.85 10^6/uL Hemoglobin 5.2 *L 13.3-17.7 G/DL Hematocrit 15 *L 40-54 % Mean Corpuscular Volume 94 80-99 FL Mean Corpuscular Hemoglobin 32 25-34 PG Mean Corpuscular Hemoglobin Concent 32 32-36 G/DL Red Cell Distribution Width 20.6 H 10.0-14.5 % Platelet Count 52 L 130-400 10^3/uL Mean Platelet Volume 9.9 7.4-10.4 FL Neutrophils (%) (Auto) 66 42-75 % Lymphocytes (%) (Auto) 23 12-44 % Monocytes (%) (Auto) 10 0-12 % Eosinophils (%) (Auto) 1 0-10 % Basophils (%) (Auto) 0 0-10 % Neutrophils # (Auto) 2.5 1.8-7.8 X 10^3 Lymphocytes # (Auto) 0.9 L 1.0-4.0 X 10^3 Monocytes # (Auto) 0.4 0.0-1.0 X 10^3 Eosinophils # (Auto) 0.0 0.0-0.3 10^3/uL Basophils # (Auto) 0.0 0.0-0.1 10^3/uL Neutrophils % (Manual) 66 % Lymphocytes % (Manual) 26 % Monocytes % (Manual) 4 % Band Neutrophils 4 % Anisocytosis MODERATE Microcytosis SLIGHT Macrocytosis SLIGHT Tear Drop Cells MODERATE Elliptocytes SLIGHT Absolute Reticulocyte Count 60 24-90 10e9/L Percent Reticulocyte Count 3.69 H 0.50-2.40 % Prothrombin Time 16.2 H 12.2-14.7 SEC INR Comment 1.3 0.8-1.4 Activated Partial Thromboplast Time 40 H 24-35 SEC D-Dimer > 20.00 *H 0.00-0.49 UG/ML Sodium Level 131 L 135-145 MMOL/L Potassium Level 5.0 3.6-5.0 MMOL/L Chloride Level 99 98-107 MMOL/L Carbon Dioxide Level 22 21-32 MMOL/L Anion Gap 10 5-14 MMOL/L Blood Urea Nitrogen 26 H 7-18 MG/DL Creatinine 0.86 0.60-1.30 MG/DL Estimat Glomerular Filtration Rate > 60 BUN/Creatinine Ratio 30 Glucose Level 134 H 70-105 MG/DL Calcium Level 9.0 8.5-10.1 MG/DL Total Bilirubin 0.9 0.1-1.0 MG/DL Aspartate Amino Transf (AST/SGOT) 39 H 5-34 U/L Alanine Aminotransferase (ALT/SGPT) 10 0-55 U/L Alkaline Phosphatase 121 40-136 U/L Troponin I < 0.30 <0.30 NG/ML Total Protein 6.8 6.4-8.2 GM/DL Albumin 3.9 3.2-4.5 GM/DL Glucometer 157 H 70-110 MG/DL My Orders Orders - LA PHILLIPS APRN Cbc With Automated Diff (09/05/17 14:45) Protime With Inr (09/05/17 14:45) Partial Thromboplastin Time (09/05/17 14:45) Comprehensive Metabolic Panel (09/05/17 14:45) Fibrin Degradation Products (09/05/17 14:45) Troponin I (09/05/17 14:45) Ua Culture If Indicated (09/05/17 14:45) Chest 1 View, Ap/Pa Only (09/05/17 14:45) Ekg Tracing (09/05/17 14:45) Nothing By Mouth (09/05/17 Dinner) Accucheck Stat ONCE (09/05/17 14:45) Saline Lock/Iv-Start (09/05/17 14:45) Saline Lock/Iv-Start (09/05/17 14:45) Vital Signs - Stroke Q15M (09/05/17 14:45) Ct Head Wo-R/O Stroke (09/05/17 14:45) O2 (09/05/17 14:45) Intake & Output 06,14,22 (09/05/17 14:45) Monitor-Rhythm Ecg Trace Only (09/05/17 14:45) Dysphagia Screening Tool (09/05/17 14:45) Anemia Analyzer (09/05/17 15:07) Red Cells Leukocytes Reduced (09/05/17 15:07) Type And Screen (09/05/17 15:07) Ns Iv 1000 Ml (Sodium Chloride 0.9%) (09/05/17 16:33) Vital Signs/I&O Vital Sign - Last 12Hours 09/05/17 14:56 Temp 97.8 Pulse 73 Resp 22 B/P (MAP) 165/73 (103) Pulse Ox 97 O2 Delivery Room Air Diagnostic Imaging Diagonstic Imaging: Xray Plain Films/CT/US/NM/MRI: chest Comments NAME: BRENNON OTTO [facility] REC#: [id number] PT STATUS: REG ER : 1930 PHYSICIAN: LA PHILLIPS APRN ADMIT DATE: 09/05/17/ER Draft Date of Exam:09/05/17 CHEST 1 VIEW, AP/PA ONLY INDICATION: Weakness. History of prostate cancer with metastatic disease of the bones. COMPARISON: 05/08/2014. FINDINGS: Single frontal view of the chest demonstrates normal heart size and pulmonary vascularity. The lungs are well aerated and clear. No large pleural effusion or pneumothorax is seen. The visualized osseous structures show no acute abnormalities. Left-sided dual-lead pacemaker and calcified aortic atherosclerosis are noted. IMPRESSION: 1. No acute cardiopulmonary process. Dictated on workstation # [id number] Dict: 09/05/17 1518 Trans: 09/05/17 1519 [id number] [id number] Interpreted by: PRIETO STEVENSON MD Electronically signed by: NAME: FAMBRENNON Cabrales [employer] REC#: [id number] PT STATUS: REG ER : 1930 PHYSICIAN: LA PHILLIPS APRN ADMIT DATE: 09/05/17/ER Draft Date of Exam:09/05/17 CT HEAD WO-R/O STROKE CT scan of the head without intravenous contrast. INDICATION: Slurred speech. FINDINGS: There is no intracranial hemorrhage, edema or mass effect. There are periventricular and deep white matter hypodensities compatible with chronic microvascular ischemic changes. No hydrocephalus. No extra-axial fluid collection. There is fluid level in the right maxillary sinus and mucosal thickening. The rest of the paranasal sinuses visualized portions appear clear. The calvarium and the orbits appear grossly unremarkable. IMPRESSION: 1. No intracranial hemorrhage. Chronic white matter ischemic changes. 2. Maxillary sinus fluid and mucosal thickening, may correlate with sinusitis. Dictated on workstation # [id number] Dict: 09/05/17 1526 Trans: 09/05/17 1531 [id number] Interpreted by: ELSA KEITA MD Electronically signed by: Departure Communication (Admissions) Time/Spoke to Admitting Phy: 16:23 Communication I discussed the case with Dr. Maldonado. We will admit the patient. Consult Dr. Miller. I did consult Dr. Miller as well and he is familiar with this patient. He agrees to consult. Progress Notes 1545-return from CT patient does have an episode of confusion and garbled speech. He shakes his head after garbled speech as if he is aware that he can' t say what he would like to say. No other unilateral neurologic deficit. Vitals remain stable. Awaiting blood to be ready from lab for transfusion. 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 Referrals: BEN MALDONADO MD (PCP/Family) Primary Care Physician LA PHILLIPS APRN Sep 05, 2017 14:50
[2017-09-05 15:00] LABS: BASOPHILS % (AUTO) 1 % (0-10); EOSINOPHILS % (AUTO) 1 % (0-10); LYMPHOCYTES # (AUTO) 0.9 X 10^3 (1.0-4.0); LYMPHOCYTES % (AUTO) 23 % (12-44); MEAN CORPUSCULAR HEMOGLOBIN 32 PG (25-34); MEAN CORPUSCULAR HGB CONC 34 G/DL (32-36); MEAN CORPUSCULAR VOLUME 94 FL (80-99); MEAN PLATELET VOLUME 9.9 FL (7.4-10.4); MONOCYTES # (AUTO) 0.4 X 10^3 (0.0-1.0); MONOCYTES % (AUTO) 10 % (0-12); NEUTROPHILS # (AUTO) 2.5 X 10^3 (1.8-7.8); NEUTROPHILS % (AUTO) 66 % (42-75); PLATELET COUNT 52 10^3/uL (130-400); RED BLOOD COUNT 1.61 10^6/uL (4.35-5.85); RED CELL DISTRIBUTION WIDTH 20.6 % (10.0-14.5)
[2017-09-05 15:11] LABS: INR 1.3 (0.8-1.4); PROTHROMBIN TIME PATIENT 16.2 SEC (12.2-14.7)
[2017-09-05 15:12] LABS: PARTIAL THROMBOPLASTIN TIME 40 SEC (24-35)
[2017-09-05 15:17] LABS: ALANINE AMINOTRANSFERASE 10 U/L (0-55); ALBUMIN 3.9 GM/DL (3.2-4.5); ANION GAP 10 MMOL/L (5-14); ASPARTATE AMINO TRANSFERASE 39 U/L (5-34); BILIRUBIN,TOTAL 0.9 MG/DL (0.1-1.0); BLOOD UREA NITROGEN 26 MG/DL (7-18); BUN/CREATININE RATIO 30; CARBON DIOXIDE 22 MMOL/L (21-32); CHLORIDE 99 MMOL/L (98-107); CREATININE SERUM 0.86 MG/DL (0.60-1.30); GFR ESTIMATED > 60; GLUCOSE 134 MG/DL (70-105); SODIUM 131 MMOL/L (135-145); TOTAL PROTEIN 6.8 GM/DL (6.4-8.2)
--- NOTE | 2017-09-05 15:20 | Diagnostic Imaging Report ---
INDICATION: Weakness. History of prostate cancer with metastatic disease of the bones. COMPARISON: 05/08/2014. FINDINGS: Single frontal view of the chest demonstrates normal heart size and pulmonary vascularity. The lungs are well aerated and clear. No large pleural effusion or pneumothorax is seen. The visualized osseous structures show no acute abnormalities. Left-sided dual-lead pacemaker and calcified aortic atherosclerosis are noted. IMPRESSION: 1. No acute cardiopulmonary process. Dictated by: Dictated on workstation # [id number]
[2017-09-05 15:21] LABS: MEAN CORPUSCULAR HEMOGLOBIN 32 PG (25-34); RED BLOOD COUNT 1.61 10^6/uL (4.35-5.85)
[2017-09-05 15:22] LABS: MEAN CORPUSCULAR VOLUME 94 FL (80-99)
[2017-09-05 15:23] LABS: TROPONIN I < 0.30 NG/ML (<0.30)
[2017-09-05 15:25] LABS: BASOPHILS % (AUTO) 0 % (0-10); EOSINOPHILS % (AUTO) 1 % (0-10); LYMPHOCYTES # (AUTO) 0.9 X 10^3 (1.0-4.0); LYMPHOCYTES % (AUTO) 23 % (12-44); MEAN CORPUSCULAR HGB CONC 32 G/DL (32-36); MEAN PLATELET VOLUME 9.9 FL (7.4-10.4); MONOCYTES # (AUTO) 0.4 X 10^3 (0.0-1.0); MONOCYTES % (AUTO) 10 % (0-12); NEUTROPHILS # (AUTO) 2.5 X 10^3 (1.8-7.8); NEUTROPHILS % (AUTO) 66 % (42-75); PLATELET COUNT 52 10^3/uL (130-400); RED CELL DISTRIBUTION WIDTH 20.6 % (10.0-14.5); RETICULOCYTE % 3.69 % (0.50-2.40)
--- NOTE | 2017-09-05 15:31 | Diagnostic Imaging Report ---
CT scan of the head without intravenous contrast. INDICATION: Slurred speech. FINDINGS: There is no intracranial hemorrhage, edema or mass effect. There are periventricular and deep white matter hypodensities compatible with chronic microvascular ischemic changes. No hydrocephalus. No extra-axial fluid collection. There is fluid level in the right maxillary sinus and mucosal thickening. The rest of the paranasal sinuses visualized portions appear clear. The calvarium and the orbits appear grossly unremarkable. IMPRESSION: 1. No intracranial hemorrhage. Chronic white matter ischemic changes. 2. Maxillary sinus fluid and mucosal thickening, may correlate with sinusitis. Dictated by: Dictated on workstation # [id number]
[2017-09-05 15:47] LABS: ANISOCYTOSIS MODERATE; BAND NEUTROPHILS 4 %; LYMPHOCYTES % (MANUAL) 26 %; MICROCYTOSIS SLIGHT; NEUTROPHILS % (MANUAL) 66 %; TEAR DROP CELLS MODERATE
[2017-09-05 16:24] LABS: WHITE BLOOD COUNT 3.6 10^3/uL (4.3-11.0)
[2017-09-05] MEDS ORDERED: NS IV 1000 ML 1,000 ML ONE (16:33)
[2017-09-05] MEDS ORDERED: CETI10TA17 PO (18:24)
[2017-09-05] MEDS ORDERED: HYDR25TA4 PO (18:24)
[2017-09-05] MEDS ORDERED: PANT40TA3 PO (18:24)
[2017-09-05] MEDS ORDERED: CHOL10007 PO (18:24)
[2017-09-05] MEDS ORDERED: SUCR1TAB PO (18:24)
[2017-09-05] MEDS ORDERED: OMEG-160 PO (18:24)
[2017-09-05] MEDS ORDERED: ONDA8TAB12 PO (18:24)
[2017-09-05] MEDS ORDERED: MULT1TAB69 PO (18:24)
[2017-09-05] MEDS ORDERED: ASPI-983 PO (18:24)
[2017-09-05] MEDS ORDERED: POTA10TA10 PO (18:24)
[2017-09-05] MEDS ORDERED: CALC-140 PO (18:24)
[2017-09-05] MEDS ORDERED: METO-370 PO (18:24)
[2017-09-05] MEDS ORDERED: VITAMIN B-12 PO (18:24)
[2017-09-05] MEDS ORDERED: CATHETER FLUSH 10 ML SYR IV PRN (19:15)
[2017-09-05] MEDS ORDERED: fentaNYL INJECTION 100 MCG/2 ML AMP IVP PRN (19:15)
[2017-09-05] MEDS ORDERED: fentaNYL INJECTION 100 MCG/2 ML AMP IV PRN (19:15)
[2017-09-05] MEDS ORDERED: NS IV 500 ML 500 ML IV SCH (19:15)
[2017-09-05] MEDS ORDERED: NS 1000 ML IV BAG IV SCH (19:15)
[2017-09-05] MEDS ORDERED: INFLUENZA TRIvalent 2017-2018 0.5 ML/45 MCG SYR IM ONE (19:30)
[2017-09-06] VITALS (8 sets, daily range): BP systolic 134–154; BP diastolic 60–68
[2017-09-06] MEDS: NS IV 1000 ML 1,000 ML IV SCH ×2 (02:08→16:27)
[2017-09-06 06:20] LABS: BASOPHILS % (AUTO) 1 % (0-10); EOSINOPHILS % (AUTO) 1 % (0-10); LYMPHOCYTES # (AUTO) 0.5 X 10^3 (1.0-4.0); LYMPHOCYTES % (AUTO) 17 % (12-44); MEAN CORPUSCULAR HEMOGLOBIN 32 PG (25-34); MEAN CORPUSCULAR HGB CONC 34 G/DL (32-36); MEAN CORPUSCULAR VOLUME 94 FL (80-99); MEAN PLATELET VOLUME 10.8 FL (7.4-10.4); MONOCYTES # (AUTO) 0.3 X 10^3 (0.0-1.0); MONOCYTES % (AUTO) 11 % (0-12); NEUTROPHILS % (AUTO) 70 % (42-75); RED BLOOD COUNT 2.01 10^6/uL (4.35-5.85); RED CELL DISTRIBUTION WIDTH 17.6 % (10.0-14.5); WHITE BLOOD COUNT 2.9 10^3/uL (4.3-11.0)
[2017-09-06 06:45] LABS: PLATELET COUNT 36 10^3/uL (130-400)
--- NOTE | 2017-09-06 09:23 | History & Physicial ---
History of Present Illness History of Present Illness Reason for visit/HPI PT IS AN 87 Y/O MALE WHO IS KNOWN TO ME FROM CLINIC. HE PRESENTED TO THE HOSPITAL WITH EXTREME WEAKNESS, SHORTNESS OF BREATH AND SLURRED SPEECH WITH CONCERN FOR A STROKE. CT OF THE HEAD WAS NEGATIVE FOR AN ACUTE STROKE, HOWEVER, HE WAS FOUND TO HAVE A HEMOGLOBIN OF 5 IN THE EMERGENCY DEPARTMENT AND GIVEN A UNIT OF BLOOD YESTERDAY EVENING. THIS IS A LATE ENTRY NOTE: I SAW BRENNON IN THE EMERGENCY DEPARTMENT AROUND 430PM 09/05/17 AND WAS UNABLE TO ENTER MY H AND P DUE TO HIS CHART STILL BEING A HOSPITAL EMERGENCY DEPARTMENT RECORD AND NOT SWITCHED OVER TO INPATIENT BEFORE I HAD TO LEAVE THE HOSPITAL. Date of Admission Sep 05, 2017 at 16:14 Date Seen by Provider: Sep 05, 2017 Time Seen by Provider: 16:30 Attending Physician Ben Crandall MD Admitting Physician Ben Crandall MD Consult Allergies and Home Medications Allergies Coded Allergies: clindamycin (Verified Allergy, Severe, COULDN'T SWALLOW, 09/05/17) adhesive (Verified Allergy, Intermediate, Rash, 09/05/17) amoxicillin (Verified Allergy, Intermediate, NAUSEA, 09/05/17) REPORTS SEVERE N/V clavulanic acid (Verified Allergy, Intermediate, NAUSEA, 09/05/17) REPORTS SEVERE N/V Home Medications Aspirin 81 Mg Tablet.dr, 81 MG PO HS, (Reported) Calcium Carbonate/Vitamin D3 1 Each Tablet, 1 TAB PO HS, (Reported) Cetirizine HCl 10 Mg Tablet, 10 MG PO DAILY PRN for ALLERGIES, (Reported) Cholecalciferol (Vitamin D3) 1,000 Unit Capsule, 1,000 UNIT PO DAILY, (Reported) Hydrochlorothiazide 25 Mg Tablet, 25 MG PO DAILY, (Reported) Losartan Potassium 100 Mg Tablet, 100 MG PO HS, (Reported) Metoprolol Succinate 50 Mg Tab.er.24h, 50 MG PO DAILY, (Reported) Multivitamin 1 Each Tablet, 1 TAB PO DAILY, (Reported) [place]-3/Dha/Epa/Fish Oil 1 Each Capsule, 1,000 MG PO BID, (Reported) Ondansetron HCl 8 Mg Tablet, 8 MG PO Q8H PRN for NAUSEA/VOMITING-1ST LINE, ( Reported) Pantoprazole Sodium 40 Mg Tablet.dr, 40 MG PO DAILY, (Reported) Potassium Chloride 10 Meq Tablet.er, 10 MEQ PO DAILY, (Reported) Sucralfate 1 Gm Tablet, 1 GM PO TID PRN for STOMACH UPSET, (Reported) [Vitamin B-12] , 1 TAB PO DAILY, (Reported) Past Wnzdopd-Baqnjq-Drurlt Hx Patient Social History Marrital Status: Living Status: LIVES AT HOME WITH HIS SPOUSE Employed/Student: retired Alcohol Use: Denies Use Recreational Drug Use: No Smoking Status: Never a Smoker 2nd Hand Smoke Exposure: No Physical Abuse Screen: No Sexual Abuse: No Recent Foreign Travel: No Contact w/other who traveled: No Recent Hopitalizations: No Recent Infectious Disease Expo: No Immunizations Up To Date Tetanus Booster (TDap): Unknown Date of Pneumonia Vaccine: Feb 28, 2011 Seasonal Allergies Seasonal Allergies: No Surgeries Yes Appendectomy, Pacemaker Respiratory No Currently Using CPAP: No Currently Using BIPAP: No Cardiovascular Yes (PACEMAKER) High Cholesterol, Hypertension Neurological No Reproductive System Hx Reproductive Disorders: No Sexually Transmitted Disease: No HIV/AIDS: No Genitourinary Yes (PROSTATE CA) Prostate Problems Gastrointestinal Yes Gastroesophageal Reflux, Otto's Esophagus, Chronic Constipation Musculoskeletal Yes (BONE CANCER, HIP PAIN) Endocrine History of Endocrine Disorders: No HEENT Loss of Vision: Bilateral Hearing Impairment: Hard of Hearing Cancer Yes Prostate, Bone Did You Recieve Any Treatments: Yes Type of Treatment: Chemotherapy, Other Psychosocial History of Psychiatric Problem: No Integumentary History of Skin or Integumenta: No Blood Transfusions History of Blood Disorders: No Adverse Reaction to a Blood Tr: No (N/A) Reviewed Nursing Assessment Reviewed/Agree w Nursing PMH: Yes Family Medical History Significant Family History: Hypertension Family Hx: Constitutional: No chills, No fever EENTM: No hoarseness Respiratory: No cough, dyspnea on exertion, short of breath Cardiovascular: No chest pain, No palpitations Gastrointestinal: No abdominal pain, No constipation, No diarrhea, No loss of appetite, No nausea, No vomiting Genitourinary: No dysuria, frequency Musculoskeletal: muscle weakness Skin: no symptoms reported Psychiatric/Neurological: Denies Anxiety, Denies Depressed All Other Systems Reviewed Negative Unless Noted: Yes Physical Exam Vital Signs Vital Sign - Last 12Hours 09/05/17 14:56 Temp 97.8 Pulse 73 Resp 22 B/P (MAP) 165/73 (103) Pulse Ox 97 O2 Delivery Room Air Capillary Refill : Less Than 3 Seconds General Appearance: No Apparent Distress, WD/WN Eyes: Bilateral Eye Normal Inspection, Bilateral Eye PERRL, Bilateral Eye EOMI HEENT: PERRL/EOMI, Pharynx Normal Neck: Full Range of Motion, Supple Respiratory: Chest Non Tender, Lungs Clear, Normal Breath Sounds, No Accessory Muscle Use Cardiovascular: Regular Rate, Rhythm Gastrointestinal: Normal Bowel Sounds, No Organomegaly, Soft Extremity: No Pedal Edema, Slow Capillary Refill Neurologic/Psychiatric: Alert, Oriented x3, Normal Mood/Affect, Other ( SLIGHTLY SLURRED SPEECH - IMPROVED WHILE I WAS IN THE ROOM WITH THE PT) Skin: Other (SLIGHT JAUNDICE) Assessment/Plan Assessment and Plan SEVERE ANEMIA PANCYTOPENIA 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 SCHMIDT THIS EVENING - HE IS IN AGREEMENT THAT WE NEED TO TALK TO BRENNON ABOUT HOSPICE. I HAVE HAD THAT DISCUSSION, BRENNON AND HIS (SHARRI) UNDERSTAND HOW GRAVE THIS SITUATION IS, BUT WANT TO PROCEDE WITH BLOOD TRANSFUSION. WE WILL GIVE BRENNON A UNIT OF BLOOD, MONITOR RESPONSE, AND GIVE ANOTHER UNIT IF THE FIRST IS TOLERATED DEPENDING ON HIS OVERALL RESPONSE TO THE TRANSFUSION. 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 DISCUSSED HOSPICE, PT WILL CONSIDER STARTING OUTPATIENT. HYPERTENSION - ONCE MEDICATION IS CONFIRMED, WILL RESTART. ESOPHAGEAL REFLUX - PT ON PROTONIX AND CARAFATE, WILL RESTART ONCE MEDS ARE VERIFIED. HYPONATREMIA - IV FLUIDS. DVT PROPHYLAXIS WITH SCD'S ONLY - NO LOVENOX. 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
--- NOTE | 2017-09-06 09:32 | Progress Note (SOAP) ---
Objective Exam Vital Signs Date Time Temp Pulse Resp B/P (MAP) Pulse Ox O2 Delivery O2 Flow Rate FiO2 09/06/17 08:42 98.3 62 20 154/67 (96) 97 Room Air 09/06/17 04:25 98.8 71 20 137/65 (89) 96 Room Air 09/06/17 00:51 97.6 64 20 138/60 (86) 95 Room Air 09/05/17 21:00 Room Air 09/05/17 20:50 97.9 59 18 137/65 96 Room Air 09/05/17 20:00 97.8 64 16 153/68 (96) 100 Room Air 09/05/17 19:00 99.3 68 18 175/73 99 Room Air 09/05/17 18:45 98.8 67 18 184/74 98 Room Air 09/05/17 18:05 97.1 78 18 167/75 (105) 98 Room Air 09/05/17 17:55 97.5 64 18 99 Room Air 09/05/17 17:45 97.5 64 18 141/65 99 Room Air 09/05/17 16:43 96.3 74 20 149/73 97 Room Air 09/05/17 14:56 97.8 73 22 165/73 (103) 97 Room Air I & O 09/06/17 07:00 Intake Total 180 ml Output Total 850 ml Balance -670 ml Capillary Refill : Less Than 3 Seconds Results Lab Laboratory Tests 09/05/17 14:45: White Blood Count 3.6L, Red Blood Count 1.61L, Hemoglobin 5.2*L, Hematocrit 15*L , Mean Corpuscular Volume 94, Mean Corpuscular Hemoglobin 32, Mean Corpuscular Hemoglobin Concent 32, Red Cell Distribution Width 20.6H, Platelet Count 52L, Mean Platelet Volume 9.9, Neutrophils (%) (Auto) 66, Lymphocytes (%) (Auto) 23, Monocytes (%) (Auto) 10, Eosinophils (%) (Auto) 1, Basophils (%) (Auto) 0, Neutrophils # (Auto) 2.5, Lymphocytes # (Auto) 0.9L, Monocytes # (Auto) 0.4, Eosinophils # (Auto) 0.0, Basophils # (Auto) 0.0, Neutrophils % (Manual) 66, Lymphocytes % (Manual) 26, Monocytes % (Manual) 4, Band Neutrophils 4, Anisocytosis MODERATE, Microcytosis SLIGHT, Macrocytosis SLIGHT, Tear Drop Cells MODERATE, Elliptocytes SLIGHT, Absolute Reticulocyte Count 60, Percent Reticulocyte Count 3.69H, Prothrombin Time 16.2H, INR Comment 1.3, Activated Partial Thromboplast Time 40H, D-Dimer > 20.00*H, Sodium Level 131L, Potassium Level 5.0, Chloride Level 99, Carbon Dioxide Level 22, Anion Gap 10, Blood Urea Nitrogen 26H, Creatinine 0.86, Estimat Glomerular Filtration Rate > 60, BUN/ Creatinine Ratio 30, Glucose Level 134H, Calcium Level 9.0, Total Bilirubin 0.9 , Aspartate Amino Transf (AST/SGOT) 39H, Alanine Aminotransferase (ALT/SGPT) 10 , Alkaline Phosphatase 121, Troponin I < 0.30, Total Protein 6.8, Albumin 3.9 09/05/17 15:03: Glucometer 157H 09/06/17 05:20: White Blood Count 2.9L, Red Blood Count 2.01L, Hemoglobin 6.4#*L, Hematocrit 19* L, Mean Corpuscular Volume 94, Mean Corpuscular Hemoglobin 32, Mean Corpuscular Hemoglobin Concent 34, Red Cell Distribution Width 17.6H, Platelet Count 36*L, Mean Platelet Volume 10.8H, Neutrophils (%) (Auto) 70, Lymphocytes (%) (Auto) 17 , Monocytes (%) (Auto) 11, Eosinophils (%) (Auto) 1, Basophils (%) (Auto) 1, Neutrophils # (Auto) 2.0, Lymphocytes # (Auto) 0.5L, Monocytes # (Auto) 0.3, Eosinophils # (Auto) 0.0, Basophils # (Auto) 0.0 Assessment/Plan Assessment/Plan Assess & Plan/Chief Complaint SEVERE ANEMIA PANCYTOPENIA 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 SCHMIDT THIS EVENING - HE IS IN AGREEMENT THAT WE NEED TO TALK TO BRENNON ABOUT HOSPICE. I HAVE HAD THAT DISCUSSION, BRENNON AND HIS (SHARRI) UNDERSTAND HOW GRAVE THIS SITUATION IS AND WANT TO CONTINUE WITH CURRENT PLAN OF CARE. I HAVE ORDERED ANOTHER UNIT OF BLOOD TODAY. DR. SCHMIDT TO SEE PT TODAY. 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 DISCUSSED HOSPICE, PT WILL CONSIDER STARTING OUTPATIENT. HYPERTENSION - RESTART HOME MEDS TODAY ESOPHAGEAL REFLUX - PT ON PROTONIX AND CARAFATE, WILL RESTART TODAY HYPONATREMIA - IV FLUIDS. DVT PROPHYLAXIS WITH SCD'S ONLY - NO LOVENOX. Clinical Quality Measures DVT/VTE Risk/Contraindication: Risk Factor Score Per Nursin RFS Level Per Nursing on Admit: 4+=Very High Stroke: Date of last known well: Sep 05, 2017 Time of last known well: 12:00 BEN CRANDALL MD Sep 06, 2017 09:32
[2017-09-06] MEDS ORDERED: ONDANSETRON 8 MG (ZOFRAN) ORAL DISSOLVE TAB PO PRN (10:15)
[2017-09-06] MEDS: PANTOPRAZOLE 40 MG (PROTONIX) TAB PO SCH (10:43)
[2017-09-06] MEDS: meTOproloL SUCCINATE 50 MG (TOPROL XL) TAB PO SCH (10:43)
[2017-09-06] MEDS: SUCRALFATE 1 GM (CARAFATE) TAB PO SCH ×2 (10:43→16:27)
[2017-09-06] MEDS: LOSARTAN 100 MG (COZAAR) TABLET PO SCH (20:08)
[2017-09-06] MEDS: CALCIUM CARB + VIT D 600 MG (CALCARB + D) TAB PO SCH (20:08)
--- NOTE | 2017-09-06 22:29 | CONSULTATION REPORT ---
DATE OF SERVICE: 09/06/2017 REFERRING AND PRIMARY PHYSICIAN: Gabriela Maldonado M.D. Patient is admitted to room 409. IMPRESSION: 1. An 87-year-old male with a high-grade metastatic prostate cancer to the bone, who has failed all treatments and has recently completed palliative radiation therapy to the spine. 2. Admitted with increasing weakness and confusion and found to have significant anemia with hemoglobin level of 5.2 grams/deciliter. 3. Significantly elevated D-dimer of more than 20, rule out primary fibrinolysis versus disseminated intravascular coagulation versus other etiologies. RECOMMENDATIONS: 1. I will obtain a fibrinogen level and repeat the D-dimer. If the fibrinogen level is low and the D-dimer high, this would be indicative of either primary fibrinolysis but could also indicate DIC. Protime was slightly elevated at 16.2 with INR of 1.3. 2. Type and cross and transfuse packed red blood cells because of symptomatic anemia. 3. The patient has had significant areas of the bone, treated with radiation as well as completed radium-223 treatments monthly x5 earlier in 2016. All of this could affect the functioning bone marrow and could cause the pancytopenia. 4. He has no treatment options other than participation in clinical trials available. He is unable to travel outside of town for participation in clinical trials. His overall prognosis from the prostate cancer standpoint is poor and we have held discussions about hospice care with him. He has not been ready for this in the past, although he is considering it during this hospitalization. 5. I will follow the patient with you. HISTORY OF PRESENT ILLNESS: The patient is an 87-year-old male who was diagnosed with metastatic high Isadora grade prostate cancer in 2011. He was treated with Firmagon until mid 2014 when he was noted to have progressive disease. At that point, he was treated with complete androgen blockade using Eligard and Casodex, but developed progressive disease within 6 months of treatment. Treatment was changed to enzalutamide and Eligard but did not respond to this. Treatment was changed to Zytiga plus prednisone without response. Then, he was tried Jevtana plus prednisone for 4 courses but again had evidence of increasing PSA levels and progressive disease. He was referred to for radium-223 treatments because of bone only disease and completed five monthly treatments but had evidence of rising PSA on a monthly basis while receiving treatment. Following this, he was treated with chemotherapy with Taxotere for 2 cycles, but was stopped because of increasing side effects. He has been on surveillance, but developed worsening back pain as well as right hip pain and received palliative radiation therapy. Within few weeks of completing the radiation therapy he started complaining of increasing pain in the same area. Discussions were held with him about palliative care without active treatment but patient was not ready for this. He was using supplements, which is available [id number] to treat the Cancer until the current hospitalization. The patient mentioned that he started becoming weak and confused at home and was brought to the emergency room. Initial labs showed a hemoglobin level of 5.2 and a D-dimer that was markedly elevated at more than 20. He was admitted to the hospital for further management. A Medical oncology consultation was obtained for concurrent care. PAST MEDICAL HISTORY: Significant for prostate cancer which was high Isadora grade that was metastatic to the bone and diagnosed in 2011 and treated as mentioned above. He has history of hypertension, coronary artery disease, sick sinus syndrome and permanent pacemaker placement. He has gastroesophageal reflux disease and has been taking medications for this. He has peripheral arterial disease with carotid artery stenosis. History of childhood polio with minimal residual. History of intracranial bleeding in the remote past. PAST SURGICAL HISTORY: Include a tonsillectomy and adenoidectomy in childhood. Appendectomy, cataract surgery, permanent pacemaker placement. SOCIAL HISTORY: The patient is and lives with his in [place]. His is having issues with dementia and patient has been taking care of her also. No significant tobacco, alcohol or other recreational drug use. FAMILY HISTORY: Significant for coronary artery disease in his father and diabetes mellitus in his brother. PHYSICAL EXAMINATION: GENERAL: Showed an elderly male, weak appearing, awake and oriented, answering questions appropriately. Does not appear in any acute distress. VITAL SIGNS: His temperature was 98.6, pulse rate of 64, respirations 20, blood pressure 136/63, oxygen saturation on room air was 99%. HEENT: Normocephalic, extraocular muscles intact, conjunctivae slightly pale, oral mucosa moist. NECK: Supple, no JVD. No cervical, supraclavicular or axillary lymphadenopathy palpable. CHEST: Showed an implanted pacemaker. LUNGS: Fairly clear to auscultation without wheezes or rales. CARDIOVASCULAR: Regular in rate and rhythm with occasional premature beats. Grade II systolic murmur was heard. ABDOMEN: Soft, mild tenderness in the epigastric area without guarding or rebound. No definite hepatosplenomegaly or other masses palpable. EXTREMITIES: Showed trace edema. A few small areas of ecchymosis noted. NEUROLOGIC: Showed overall motor strength 4/5 bilaterally. Previously, patient was ambulating with two canes. LABORATORY DATA: CBC done today Showed WBC 2.9, hemoglobin 6.4, platelet count 36,000. CBC done at the time of admission yesterday afternoon had shown white count of 3.6 with hemoglobin level of 5.2, MCV 94, RDW 20.6, platelet count 52,000 with absolute reticulocyte count of 60,000. Neutrophil count was 2.5, lymphocyte count 0.9. Protime done yesterday was 16.2 with INR of 1.3. PTT was 40 and D-dimer was elevated at more than 20. Chemistry panel done yesterday showed sodium level of 131 with the rest of the electrolytes normal. BUN was 26 and creatinine 0.86 with GFR more than 60 mL per minute. Total bilirubin was 0.9. AST was minimally elevated at 39 with rest of the liver function studies normal including albumin level of 3.9. Thank you for allowing me to participate in this patient's care. I will follow the patient with make appropriate recommendations. Job ID: [id number] DocumentID: [id number] Dictated Date: 09/06/2017 17:02:15 Collar Tacker Date: 09/06/2017 22:29:02 Dictated By: ROSALINE SCHMIDT MD
[2017-09-07 00:16] VITALS: BP 150/67
[2017-09-07 04:00] VITALS: BP 151/65
[2017-09-07] MEDS: NS IV 1000 ML 1,000 ML IV SCH ×2 (05:57→19:27)
[2017-09-07] MEDS: PANTOPRAZOLE 40 MG (PROTONIX) TAB PO SCH (05:57)
[2017-09-07] MEDS: SUCRALFATE 1 GM (CARAFATE) TAB PO SCH ×3 (05:57→15:33)
[2017-09-07] MEDS: VITAMIN D3 1,000 UNITS (CHOLECALCIFEROL) TABLET PO SCH (05:57)
[2017-09-07] MEDS: KCL 10 MEQ TAB (MICRO K) PO SCH (05:57)
[2017-09-07 06:18] LABS: BASOPHILS % (AUTO) 0 % (0-10); EOSINOPHILS % (AUTO) 2 % (0-10); LYMPHOCYTES # (AUTO) 0.5 X 10^3 (1.0-4.0); LYMPHOCYTES % (AUTO) 19 % (12-44); MEAN CORPUSCULAR HEMOGLOBIN 32 PG (25-34); MEAN CORPUSCULAR HGB CONC 34 G/DL (32-36); MEAN CORPUSCULAR VOLUME 92 FL (80-99); MEAN PLATELET VOLUME 11.2 FL (7.4-10.4); MONOCYTES # (AUTO) 0.3 X 10^3 (0.0-1.0); MONOCYTES % (AUTO) 12 % (0-12); NEUTROPHILS # (AUTO) 1.7 X 10^3 (1.8-7.8); NEUTROPHILS % (AUTO) 67 % (42-75); RED BLOOD COUNT 2.25 10^6/uL (4.35-5.85); RED CELL DISTRIBUTION WIDTH 17.9 % (10.0-14.5); WHITE BLOOD COUNT 2.6 10^3/uL (4.3-11.0)
[2017-09-07 06:29] LABS: FIBRINOGEN 223 MG/DL (221-496); INR 1.4 (0.8-1.4); PLATELET COUNT 31 10^3/uL (130-400)
[2017-09-07 06:36] LABS: BAND NEUTROPHILS 7 %; BASOPHILS % (MANUAL) 0 %; EOSINOPHILS % (MANUAL) 2 %; LYMPHOCYTES % (MANUAL) 17 %; METAMYELOCYTES % 7 %; MYELOCYTES % 1 %; NEUTROPHILS % (MANUAL) 58 %
[2017-09-07 06:40] LABS: ANISOCYTOSIS MODERATE; HYPOCHROMASIA SLIGHT; MICROCYTOSIS SLIGHT; POLYCHROMASIA SLIGHT; SCHISTOCYTES SLIGHT; SPHEROCYTES SLIGHT; TEAR DROP CELLS SLIGHT
[2017-09-07 06:47] LABS: ALANINE AMINOTRANSFERASE 9 U/L (0-55); ALBUMIN 3.2 GM/DL (3.2-4.5); ANION GAP 10 MMOL/L (5-14); ASPARTATE AMINO TRANSFERASE 28 U/L (5-34); BILIRUBIN,TOTAL 0.9 MG/DL (0.1-1.0); BLOOD UREA NITROGEN 14 MG/DL (7-18); BUN/CREATININE RATIO 22; CALCIUM 7.9 MG/DL (8.5-10.1); CARBON DIOXIDE 21 MMOL/L (21-32); CHLORIDE 104 MMOL/L (98-107); CREATININE SERUM 0.65 MG/DL (0.60-1.30); GFR ESTIMATED > 60; GLUCOSE 90 MG/DL (70-105); POTASSIUM 3.6 MMOL/L (3.6-5.0); SODIUM 135 MMOL/L (135-145); TOTAL PROTEIN 5.4 GM/DL (6.4-8.2)
[2017-09-07 08:00] VITALS: BP 135/53
[2017-09-07] MEDS: meTOproloL SUCCINATE 50 MG (TOPROL XL) TAB PO SCH (08:45)
[2017-09-07] MEDS ORDERED: LORATADINE (CLARITIN) 10 MG TAB PO PRN (09:00)
--- NOTE | 2017-09-07 09:07 | Progress Note (SOAP) ---
Objective Exam Vital Signs Date Time Temp Pulse Resp B/P (MAP) Pulse Ox O2 Delivery O2 Flow Rate FiO2 09/07/17 04:00 97.8 67 16 151/65 (93) 97 Room Air 09/07/17 00:16 98.7 61 18 150/67 (94) 99 Room Air 09/06/17 21:00 Room Air 09/06/17 19:12 98.7 62 18 150/68 (95) 98 Room Air 09/06/17 16:30 97.5 66 18 134/62 (86) 98 Room Air 09/06/17 12:40 98.6 64 20 136/63 99 Room Air 09/06/17 12:00 98.6 64 20 136/63 (87) 99 Room Air 09/06/17 10:17 98.8 72 20 134/60 Room Air I & O 09/07/17 07:00 Intake Total 1662 ml Output Total 1500 ml Balance 162 ml Capillary Refill : Less Than 3 Seconds Results Lab Laboratory Tests 09/06/17 14:02: Lab Scanned Report Transfusion Reaction Form 09/07/17 05:34: White Blood Count 2.6L, Red Blood Count 2.25L, Hemoglobin 7.1L, Hematocrit 21L, Mean Corpuscular Volume 92, Mean Corpuscular Hemoglobin 32, Mean Corpuscular Hemoglobin Concent 34, Red Cell Distribution Width 17.9H, Platelet Count 31*L, Mean Platelet Volume 11.2H, Neutrophils (%) (Auto) 67, Lymphocytes (%) (Auto) 19 , Monocytes (%) (Auto) 12, Eosinophils (%) (Auto) 2, Basophils (%) (Auto) 0, Neutrophils # (Auto) 1.7L, Lymphocytes # (Auto) 0.5L, Monocytes # (Auto) 0.3, Eosinophils # (Auto) 0.0, Basophils # (Auto) 0.0, Neutrophils % (Manual) 58, Lymphocytes % (Manual) 17, Monocytes % (Manual) 8, Eosinophils % (Manual) 2, Basophils % (Manual) 0, Metamyelocytes % 7, Myelocytes % 1, Band Neutrophils 7, Nucleated Red Blood Cells 4, Polychromasia SLIGHT, Hypochromasia SLIGHT, Basophilic Stippling SLIGHT, Anisocytosis MODERATE, Microcytosis SLIGHT, Macrocytosis SLIGHT, Spherocytes SLIGHT, Tear Drop Cells SLIGHT, Elliptocytes SLIGHT, Schistocytes SLIGHT, Prothrombin Time 17.0H, INR Comment 1.4, Fibrinogen 223, D-Dimer > 20.00*H, Sodium Level 135, Potassium Level 3.6, Chloride Level 104, Carbon Dioxide Level 21, Anion Gap 10, Blood Urea Nitrogen 14, Creatinine 0.65, Estimat Glomerular Filtration Rate > 60, BUN/Creatinine Ratio 22, Glucose Level 90, Calcium Level 7.9L, Total Bilirubin 0.9, Aspartate Amino Transf (AST/SGOT) 28, Alanine Aminotransferase (ALT/SGPT) 9, Alkaline Phosphatase 100, Total Protein 5.4L, Albumin 3.2 Assessment/Plan Assessment/Plan Assess & Plan/Chief Complaint SEVERE ANEMIA PANCYTOPENIA 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 SCHMIDT THIS EVENING - HE IS IN AGREEMENT THAT WE NEED TO TALK TO BRENNON ABOUT HOSPICE. I HAVE HAD THAT DISCUSSION, BRENNON AND HIS (SHARRI) UNDERSTAND HOW GRAVE THIS SITUATION IS AND WANT TO CONTINUE WITH CURRENT PLAN OF CARE. I HAVE ORDERED ANOTHER UNIT OF BLOOD TODAY. DR. SCHMIDT TO SEE PT TODAY. 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 DISCUSSED HOSPICE, PT WILL CONSIDER STARTING OUTPATIENT. HYPERTENSION - RESTART HOME MEDS TODAY ESOPHAGEAL REFLUX - PT ON PROTONIX AND CARAFATE, WILL RESTART TODAY HYPONATREMIA - IV FLUIDS. DVT PROPHYLAXIS WITH SCD'S ONLY - NO LOVENOX. Clinical Quality Measures DVT/VTE Risk/Contraindication: Risk Factor Score Per Nursin RFS Level Per Nursing on Admit: 4+=Very High Stroke: Date of last known well: Sep 05, 2017 Time of last known well: 12:00 BEN CRANDALL MD Sep 07, 2017 09:07
[2017-09-07 09:22] LABS: FOLIC ACID >24.0 NG/ML (1.5-24.0)
[2017-09-07 09:23] LABS: %SAT TOTAL IRON BINDING CAPIC 71 H % (15-50); TIBC 325 UG/DL (280-380); UIBC 94 UG/DL (55-450)
[2017-09-07 09:24] LABS: ALK PHOS ANEMIA ANALYZER 120 U/L (43-136)
[2017-09-07] MEDS ORDERED: guaiFENesin (MUCINEX) 600 MG TAB PO NR (09:30)
[2017-09-07] MEDS ORDERED: guaiFENesin/DM (ROBITUSSIN DM) 10 ML UDC PO PRN (09:30)
[2017-09-07 09:33] LABS: DAT POLY INT Negative
[2017-09-07 12:00] VITALS: BP 135/53
[2017-09-07 15:29] VITALS: BP 156/68
[2017-09-07 19:31] VITALS: BP 167/73
[2017-09-07] MEDS: LOSARTAN 100 MG (COZAAR) TABLET PO SCH (20:11)
[2017-09-07] MEDS: CALCIUM CARB + VIT D 600 MG (CALCARB + D) TAB PO SCH (20:12)
[2017-09-07] MEDS: guaiFENesin (MUCINEX) 600 MG TAB PO SCH (20:14)
[2017-09-07] MEDS ORDERED: MELATONIN 3 MG TABLET PO SCH (21:00)
[2017-09-08] VITALS: BP 128/65
[2017-09-08 04:00] VITALS: BP 148/69
[2017-09-08 06:12] LABS: MEAN PLATELET VOLUME 11.3 FL (7.4-10.4); RED BLOOD COUNT 2.26 10^6/uL (4.35-5.85); RED CELL DISTRIBUTION WIDTH 17.8 % (10.0-14.5); WHITE BLOOD COUNT 2.5 10^3/uL (4.3-11.0)
[2017-09-08] MEDS: PANTOPRAZOLE 40 MG (PROTONIX) TAB PO SCH (06:13)
[2017-09-08] MEDS: SUCRALFATE 1 GM (CARAFATE) TAB PO SCH ×2 (06:14→11:06)
[2017-09-08] MEDS: VITAMIN D3 1,000 UNITS (CHOLECALCIFEROL) TABLET PO SCH (06:14)
[2017-09-08] MEDS: KCL 10 MEQ TAB (MICRO K) PO SCH (06:14)
[2017-09-08 07:43] VITALS: BP 159/66
[2017-09-08] MEDS: NS IV 1000 ML 1,000 ML IV SCH (08:17)
[2017-09-08] MEDS: guaiFENesin (MUCINEX) 600 MG TAB PO SCH (08:17)
[2017-09-08] MEDS: meTOproloL SUCCINATE 50 MG (TOPROL XL) TAB PO SCH (08:18)
--- NOTE | 2017-09-08 09:35 | Discharge Inst-Complex ---
PDI Med Rec & Follow Up Appt. Continued Medications: Calcium Carbonate/Vitamin D3 (Calcium + Vitamin D Tablet) 1 Each Tablet 1 TAB PO HS, TAB Cetirizine HCl (Cetirizine HCl) 10 Mg Tablet 10 MG PO DAILY PRN for ALLERGIES, TAB Cholecalciferol (Vitamin D3) (Vitamin D3) 1,000 Unit Capsule 1000 UNIT PO DAILY, CAP Hydrochlorothiazide (Hydrochlorothiazide) 25 Mg Tablet 25 MG PO DAILY Losartan Potassium (Losartan Potassium) 100 Mg Tablet 100 MG PO HS, TAB Metoprolol Succinate (Metoprolol Succinate) 50 Mg Tab.er.24h 50 MG PO DAILY Multivitamin (Multivitamins) 1 Each Tablet 1 TAB PO DAILY, TAB Ondansetron HCl (Ondansetron HCl) 8 Mg Tablet 8 MG PO Q8H PRN for NAUSEA/VOMITING-1ST LINE Pantoprazole Sodium (Pantoprazole Sodium) 40 Mg Tablet.dr 40 MG PO DAILY Potassium Chloride (Potassium Chloride) 10 Meq Tablet.er 10 MEQ PO DAILY Sucralfate (Sucralfate) 1 Gm Tablet 1 GM PO TID PRN for STOMACH UPSET [Vitamin B-12] () 1 TAB PO DAILY Discontinued Medications: Aspirin (Aspirin EC) 81 Mg Tablet.dr 81 MG PO HS, TAB [place]-3/Dha/Epa/Fish Oil (Fish Oil 1,000 mg Softgel) 1 Each Capsule 1000 MG PO BID, CAP Activity, Diet and PDI Resume Normal Activity: Yes Discharge Diet: Regular Diet Driving Instructions: No Driving for 24 Hours Return to The Hospital For: ANY CONCERNS NOT ABLE TO BE ADDRESSED BY HOSPICE Symptoms to Reoprt to : Bleeding Excessive For Problems or Questions: Contact Your Physician (OR CONTACT HOSPICE PROVIDER) BEN CRANDALL MD Sep 08, 2017 09:35
--- NOTE | 2017-09-08 09:36 | Discharge Summary ---
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 HE PRESENTED TO THE HOSPITAL WITH EXTREME WEAKNESS, SHORTNESS OF BREATH AND SLURRED SPEECH WITH CONCERN FOR A STROKE. CT OF THE HEAD WAS NEGATIVE FOR AN ACUTE STROKE, HOWEVER, HE WAS FOUND TO HAVE A HEMOGLOBIN OF 5 IN THE EMERGENCY DEPARTMENT AND GIVEN A UNIT OF BLOOD YESTERDAY EVENING. THIS IS A LATE ENTRY NOTE: I SAW BRENNON IN THE EMERGENCY DEPARTMENT AROUND 430PM 09/05/17 AND WAS UNABLE TO ENTER MY H AND P DUE TO HIS CHART STILL BEING A HOSPITAL EMERGENCY DEPARTMENT RECORD AND NOT SWITCHED OVER TO INPATIENT BEFORE I HAD TO LEAVE THE HOSPITAL. Discharge Summary Discharge Physical Examination Allergies: Coded Allergies: clindamycin (Verified Allergy, Severe, COULDN'T SWALLOW, 09/05/17) adhesive (Verified Allergy, Intermediate, Rash, 09/05/17) amoxicillin (Verified Allergy, Intermediate, NAUSEA, 09/05/17) REPORTS SEVERE N/V clavulanic acid (Verified Allergy, Intermediate, NAUSEA, 09/05/17) REPORTS SEVERE N/V Vitals & I&Os Vital Signs Date Time Temp Pulse Resp B/P (MAP) Pulse Ox O2 Delivery O2 Flow Rate FiO2 09/08/17 07:43 96.9 72 20 159/66 (97) 98 Room Air Hospital Course Pending Labs Laboratory Tests 09/08/17 06:03: White Blood Count 2.5, Red Blood Count 2.26, Hemoglobin 7.1, Hematocrit 21, Mean Corpuscular Volume 93, Mean Corpuscular Hemoglobin 31, Mean Corpuscular Hemoglobin Concent 34, Red Cell Distribution Width 17.8, Platelet Count 23, Mean Platelet Volume 11.3 Discharge Instructions to patient/family Please see electronic discharge instructions given to patient. Discharge Medications Reviewed and agree with Discharge Medication list on patient's Discharge Instruction sheet Clinical Quality Measures DVT/VTE Risk/Contraindication: Risk Factor Score Per Nursin RFS Level Per Nursing on Admit: 4+=Very High Stroke: Date of last known well: Sep 05, 2017 Time of last known well: 12:00 BEN CRANDALL MD Sep 08, 2017 09:36
[2017-09-08 12:00] VITALS: BP 159/68
[2017-09-08 16:01] VITALS: BP 159/68
== END 2017-09-08 16:04 | disposition hospice, home (50) | DRG 809 ==
LOC: EDUNIT# 14:38 → ER 14:39 → 4TH 16:14
PROVIDERS: ADMIT Family Medicine; ATTEND Family Medicine
DX: D61.818 Other pancytopenia (principal); E87.1 Hypo-osmolality and hyponatremia; C61 Malignant neoplasm of prostate; C79.51 Secondary malignant neoplasm of bone; R79.1 Abnormal coagulation profile; I25.10 Atherosclerotic heart disease of native coronary artery without angina pectoris; I10 Essential (primary) hypertension; E78.00 Pure hypercholesterolemia, unspecified; K21.9 Gastro-esophageal reflux disease without esophagitis; K59.09 Other constipation; I73.9 Peripheral vascular disease, unspecified; W19.XXXA Unspecified fall, initial encounter; Y92.019 Unspecified place in single-family (private) house as the place of occurrence of the external cause; Z95.0 Presence of cardiac pacemaker; Z92.21 Personal history of antineoplastic chemotherapy; Z92.3 Personal history of irradiation
CPT/HCPCS: 36415; 36430; 70450; 71010; 80053; 82607; 82746; 82962; 83540; 83550; 84484; 85007; 85014; 85018; 85025; 85027; 85045; 85379; 85384; 85610; 85730; 86850; 86900; 86901; 86920; 93005; 93041; 96360

== ENCOUNTER 2017-10-26 14:04 | Emergency (ER) | payer MEDICARE ==
[~2017-10-26] VITALS: Ht 175.3 cm; Wt 72.6 kg
[~2017-10-26 14:04] MED LIST changes: +ASPI-983 PO; +CALC-140 PO; +CHOL10007 PO; +HYDR25TA4 PO; +METO-370 PO; +MULT1TAB69 PO; +OMEG-160 PO; +ONDA8TAB12 PO; +PANT40TA3 PO; +POTA10TA10 PO; +SUCR1TAB PO; +VITAMIN B-12 PO
--- OUTSIDE RECORDS SUMMARY | 2017-10-26 14:26 | XMS REPORT | Continuity of Care Document ---
Author Author [facility] Organization [facility] Address Unknown Phone Unavailable Allergies Active Description Code Type Severity Reaction Onset Reported/Identified Relationship to Patient Clinical Status Yes clindamycin [id number] Drug Allergy Severe COULDN'T SWALLO 09/05/2017 Yes adhesive [id number] Drug Allergy Moderate Rash 09/05/2017 Yes amoxicillin [id number] Drug Allergy Moderate NAUSEA 09/05/2017 Yes clavulanic acid [id number] Drug Allergy Moderate NAUSEA 09/05/2017 Medications There is no data. Problems Date Dx Coded Attending Type Code Diagnosis Diagnosed By 08/25/1100 ROSALINE SCHMIDT Ot C61 MALIGNANT NEOPLASM OF PROSTATE 08/25/1100 ROSALINE SCHMIDT Ot C79.51 SECONDARY MALIGNANT NEOPLASM OF BONE 08/25/1100 ROSALINE SCHMIDT Ot Z51.0 ENCOUNTER FOR ANTINEOPLASTIC RADIATION T 08/25/1410 ROSALINE SCHMIDT Ot C61 MALIGNANT NEOPLASM OF PROSTATE 08/25/1410 ROSALINE SCHMIDT Ot C79.51 SECONDARY MALIGNANT NEOPLASM OF BONE 08/25/1410 ROSALINE SCHMIDT Ot Z51.11 ENCOUNTER FOR ANTINEOPLASTIC CHEMOTHERAP 08/25/1410 ROSALINE SCHMIDT Ot Z79.899 OTHER DIRECTOR OF INSTITUTIONAL SALES (CURRENT) DRUG THERAPY 08/28/2012 Ot 185 MALIGN NEOPL PROSTATE 08/28/2012 Ot 198.5 SECONDARY MALIG NICHOALS BONE 08/28/2012 Ot 272.0 PURE HYPERCHOLESTEROLEM 08/28/2012 Ot 401.9 HYPERTENSION NOS 08/28/2012 Ot 530.81 ESOPHAGEAL REFLUX 08/28/2012 Ot V58.69 OTH MED,LT, CURRENT USE 02/28/2013 BEBO HUTCHINS MD Ot 185 MALIGN NEOPL PROSTATE 02/28/2013 BEBO HUTCHINS MD Ot 272.4 HYPERLIPIDEMIA NEC/NOS 02/28/2013 BEBO HUTCHINS MD Ot 401.9 HYPERTENSION NOS 02/28/2013 BEBO HUTCHINS MD Ot 414.01 CORONARY ATHEROSCLEROSIS OF [place] CORON 02/28/2013 BEBO HUTCHINS MD Ot 414.4 CORONARY ATHEROSCLEROSIS DUE TO [place] 02/28/2013 BEBO HUTCHINS MD Ot 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 DYSFUNCT 02/28/2013 BEBO HUTCHINS MD Ot 433.10 CAROTID ARTERY OCCLUSION W O CEREBRAL IN 02/28/2013 BEBO HUTCHINS MD Ot 530.81 ESOPHAGEAL REFLUX 02/28/2013 BEBO HUTCHINS MD Ot 794.30 ABN CARDIOVASC STUDY NOS 02/28/2013 BEBO HUTCHINS MD, Ot V12.02 PERSONAL HISTORY OF POLIOMYELITIS 02/28/2013 BEBO HUTCHINS MD, Ot V58.66 LONG-TERM (CURRENT) USE OF ASPIRIN 02/28/2013 BEBO HUTCHINS MD, Ot V58.69 OT MED,LT,CURRENT USE 05/02/2013 ROSALINE SCHMIDT Ot 185 MALIGN NEOPL PROSTATE 05/02/2013 ROSALINE SCHMIDT Ot 198.5 SECONDARY MALIG NICHOLAS BONE 05/02/2013 ROSALINE SCHMIDT Ot 272.0 PURE HYPERCHOLESTEROLEM 05/02/2013 ROSALINE SCHMIDT Ot 401.9 HYPERTENSION NOS 05/02/2013 ROSALINE SCHMIDT Ot 427.31 ATRIAL FIBRILLATION 05/02/2013 ROSALINE SCHMIDT Ot 530.81 ESOPHAGEAL REFLUX 05/02/2013 ROSALINE SCHMIDT Ot V58.69 OT MED,LT,CURRENT USE 08/03/2013 BEN CRANDALL MD Ot 723.1 CERVICALGIA 08/03/2013 BEN CRANDALL MD Ot V57.1 PHYSICAL THERAPY NEC 01/27/2014 ROSALINE SCHMIDT Ot 185 MALIGN NEOPL PROSTATE 05/09/2014 BEBO HUTCHINS MD, Ot 185 MALIGN NEOPL PROSTATE 05/09/2014 BEBO HUTCHINS MD Ot 272.4 HYPERLIPIDEMIA NEC/NOS 05/09/2014 BEBO HUTCHINS MD Ot 401.9 HYPERTENSION NOS 05/09/2014 BEBO HUTCHINS MD Ot 414.01 CORONARY ATHEROSCLEROSIS OF [place] CORON 05/09/2014 BEBO HUTCHINS MD Ot 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 DYSFUNCT 05/09/2014 BEBO HUTCHINS MD Ot 780.2 SYNCOPE AND COLLAPSE 05/09/2014 BEBO HUTCHNIS MD Ot V58.69 OTH MED,LT,CURRENT USE 05/09/2014 BEBO HUTCHINS MD Ot V87.41 PERSONAL HISTORY OF ANTINEOPLASTIC CHEMO 05/12/2014 BEN CRANDALL MD Ot 276.8 HYPOPOTASSEMIA 05/12/2014 BEN CRANDALL MD Ot 401.9 HYPERTENSION NOS 05/12/2014 BEN CRANDALL MD Ot 414.01 CORONARY ATHEROSCLEROSIS OF [place] CORON 05/12/2014 BEN CRANDALL MD Ot 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 DYSFUNCT 05/12/2014 BEN CRANDALL MD Ot 473.0 CHR MAXILLARY SINUSITIS 05/12/2014 BEN CRANDALL MD Ot 728.87 MUSCLE WEAKNESS (GENERALIZED) 05/12/2014 BEN CRANDALL MD Ot 780.79 OTH MALAISE FATIGUE 05/12/2014 BEN CRANDALL MD Ot 782.0 SKIN SENSATION DISTURB 05/12/2014 BEN CRANDALL MD Ot 786.50 CHEST PAIN NOS 05/12/2014 BEN CRANDALL MD Ot E944.4 ADV EFF DIURETICS NEC 05/12/2014 BEN CRANDALL MD Ot V45.01 CARDIAC PACEMAKER IN SITU 07/01/2014 BEN CRANDALL MD Ot 427.89 CARDIAC DYSRHYTHMIAS NEC 07/29/2014 BRAYAN, KATARINAAN N Ot 185 MALIGN NEOPL PROSTATE 10/23/2014 BRAYANKATARINAAN N Ot 185 10/23/2014 BRAYANKATARINAAN N Ot 185 11/19/2014 BRAYANKATARINAAN N Ot 185 01/22/2015 BRAYAN, BOBAN N Ot 185 02/14/2015 BRAYAN, BOBAN N Ot 185 02/23/2015 BRAYAN, BOBAN N Ot 185 MALIGN NEOPL PROSTATE 05/13/2015 BEN CRANDALL MD Ot 185 2015 BRAYANROSALINE N Ot 185 05/20/2015 BRAYAN BOBAN N Ot 185 05/26/2015 BRAYAN, BOBAN N Ot 185 05/28/2015 BEN CRANDALL MD Ot 185 06/05/2015 BEN CRANDALL MD Ot 185 06/17/2015 BRAYANROSALINE TORRES N Ot 185 06/25/2015 BRAYAN, BOBAN N Ot 185 MALIGN NEOPL PROSTATE 06/25/2015 ROSALINE SCHMIDT Ot V58.69 OT MED,LT,CURRENT USE 06/25/2015 ROSALINE SCHMIDT Ot 185 06/30/2015 ALISHA ORELLANA, GEORGINA Bentley Ot E78.5 06/30/2015 ALISHA ORELLANA, GEORGINA Bentley Ot I10 06/30/2015 ALISHA ORELLANA, GEORGINA Bentley Ot I25.9 06/30/2015 ALISHA PA, GEORGINA Bentley Ot I65.29 06/30/2015 ALISHA ORELLANA, GEORGINA Bentley Ot R09.89 07/17/2015 ASIA JACKSONP Ot 185 07/17/2015 ASIA JACKSONP Ot V58.69 07/21/2015 ALISHA ORELLANA, GEORGINA Bentley Ot E78.5 07/21/2015 ALISHA ORELLANA, GEORGINA Bentley Ot I10 07/21/2015 ALISHA ORELLANA, GEORGINA Bentley Ot I25.9 07/21/2015 ALISHA ORELLANA, GEORGINA Bentley Ot I65.29 07/21/2015 ALISHA ORELLANA, GEORGINA Bentley Ot R09.89 07/23/2015 ASIA JACKSONP Ot 185 07/23/2015 ASIA JACKSON Ot V58.69 07/29/2015 ALISHA ORELLANA, GEORGINA Bentley Ot E78.5 07/29/2015 ALISHA ORELLANA, GEORGINA Bentley Ot I10 07/29/2015 ALISHA ORELLANA, GEORGINA Bentley Ot I25.9 07/29/2015 ALISHA ORELLANA, GEORGINA Bentley Ot I65.29 07/29/2015 ALISHA ORELLANA, GEORGINA Bentley Ot R09.89 08/18/2015 Ot E78.5 08/18/2015 Ot I10 08/18/2015 Ot I25.10 08/18/2015 Ot I65.29 08/18/2015 Ot I73.9 08/26/2015 Ot E78.5 08/26/2015 Ot I10 08/26/2015 Ot I25.10 08/26/2015 Ot I65.29 08/26/2015 Ot I73.9 09/04/2015 ROSALINE SCHMIDT N Ot 185 09/11/2015 ROSALINE SCHMIDT N Ot 185 09/12/2015 ROSALINE SCHMIDT N Ot 185 10/23/2015 ROSALINE SCHMIDT N Ot C61 10/23/2015 ROSALINE SCHMIDT N Ot C79.51 10/23/2015 ROSALINE SCHMIDT N Ot Z79.899 10/28/2015 JESICA JACKSONAH S MELT SUPERINTENDANT Ot C61 10/28/2015 RENETTA HILAH S MELT SUPERINTENDANT Ot C79.51 10/28/2015 JACKSON HILAH S MELT SUPERINTENDANT Ot Z79.899 11/06/2015 JACKSON HILAH S MELT SUPERINTENDANT Ot C61 11/06/2015 JACKSON HILAH S MELT SUPERINTENDANT Ot C79.51 11/06/2015 JACKSON HILAH S MELT SUPERINTENDANT Ot Z79.899 11/06/2015 JACKSON HILAH S MELT SUPERINTENDANT Ot C61 11/06/2015 RENETTA HILAH S MELT SUPERINTENDANT Ot C79.51 11/06/2015 JACKSON HILAH S MELT SUPERINTENDANT Ot Z79.899 11/24/2015 JACKSON HILAH S MELT SUPERINTENDANT Ot C61 11/24/2015 JACKSON HILAH S MELT SUPERINTENDANT Ot C79.51 11/24/2015 JACKSON HILAH S MELT SUPERINTENDANT Ot Z79.899 12/04/2015 JACKSON HILAH S MELT SUPERINTENDANT Ot C61 12/04/2015 JACKSON HILAH S MELT SUPERINTENDANT Ot C79.51 12/04/2015 ASIA JACKSON S MELT SUPERINTENDANT Ot Z79.899 12/10/2015 ROSALINE SCHMIDT N Ot C61 MALIGNANT NEOPLASM OF PROSTATE 12/10/2015 ROSALINE SCHMIDT N Ot C79.51 SECONDARY MALIGNANT NEOPLASM OF BONE 12/10/2015 ROSALINE SCHMIDT N Ot Z79.899 OTHER DIRECTOR OF INSTITUTIONAL SALES (CURRENT) DRUG THERAPY 12/11/2015 ROSALINE SCHMIDT N Ot C61 12/11/2015 ROSALINE SCHMIDT N Ot C79.51 12/11/2015 ROSALINE SCHMIDT N Ot Z79.899 01/02/2016 Ot 185 01/02/2016 Ot 793.99 01/02/2016 LISET BRINK, BEBO Sanchez Ot 401.9 01/02/2016 BEBO HUTCHINS MD Ot 785.1 01/02/2016 LISET BRINK, BEBO Sanchez Ot 401.9 01/02/2016 LISET BRINK, BEBO Sanchez Ot 785.1 01/02/2016 ROSALINE SCHMIDT Gale Ot 185 01/02/2016 ROSALINE SCHMIDT N Ot V58.69 01/02/2016 ROSALINE SCHMIDT N Ot V82.81 01/02/2016 NIKKI BRINK, Laura LY Ot 185 01/02/2016 NIKKI BRINK, Laura LY Ot 198.5 01/02/2016 NIKKI BRINK, Laura LY Ot 715.90 01/02/2016 NIKKI BRINK, Laura LY Ot 719.41 01/02/2016 ASIA JACKSON MELT SUPERINTENDANT Ot 185 01/02/2016 Ot 427.89 01/02/2016 KARLEY BRINK, BEN Nur Ot 185 01/02/2016 GEORGINA HAIRSTON Ot E78.5 01/02/2016 GEORGINA HAIRSTON Ot I10 01/02/2016 GEORGINA HAIRSTON Ot I25.9 01/02/2016 GEORGINA HAIRSTON Ot I65.29 01/02/2016 GEORGINA HAIRSTON Ot R09.89 01/02/2016 Ot E78.5 01/02/2016 Ot I10 01/02/2016 Ot I25.10 01/02/2016 Ot I65.29 01/02/2016 Ot I73.9 01/02/2016 ASIA JACKSON MELT SUPERINTENDANT Ot 185 01/02/2016 ASIA JACKSON MELT SUPERINTENDANT Ot V58.69 01/02/2016 ASIA JACKSON S MELT SUPERINTENDANT Ot C61 01/02/2016 JACKSONASIA Monreal S MELT SUPERINTENDANT Ot C79.51 01/02/2016 ASIA JACKSON MELT SUPERINTENDANT Ot Z79.899 01/02/2016 ASIA JACKSON MELT SUPERINTENDANT Ot C61 01/02/2016 JACKSONASIA Monreal S MELT SUPERINTENDANT Ot C79.51 01/02/2016 JACKSONASIA Monreal S MELT SUPERINTENDANT Ot Z79.899 01/02/2016 BRAYANORSALINE TORRES N Ot C61 01/02/2016 ROSALINE SCHMIDT Ot C79.51 01/02/2016 ROSALINE SCHMIDT N Ot Z79.899 01/05/2016 ROSALINE SCHMIDT N Ot C61 01/05/2016 ROSALINE SCHMIDT N Ot C79.51 01/08/2016 ROSALINE SCHMIDT N Ot C61 01/08/2016 ROSALINE SCHMIDT N Ot C79.51 01/08/2016 ROSALINE SCHMIDT N Ot Z79.899 01/22/2016 ROSALINE SCHMIDT N Ot C61 MALIGNANT NEOPLASM OF PROSTATE 01/22/2016 ROSALINE SCHMIDT N Ot C79.51 SECONDARY MALIGNANT NEOPLASM OF BONE 01/27/2016 ASIA JACKSON S MELT SUPERINTENDANT Ot C61 MALIGNANT NEOPLASM OF PROSTATE 01/27/2016 ASIA JACKSON S MELT SUPERINTENDANT Ot C79.51 SECONDARY MALIGNANT NEOPLASM OF BONE 01/27/2016 ASIA JACKSON S MELT SUPERINTENDANT Ot Z79.899 OTHER RESIDENTIAL (CURRENT) DRUG THERAPY 01/28/2016 ASIA JACKSON MELT SUPERINTENDANT Ot C61 MALIGNANT NEOPLASM OF PROSTATE 01/28/2016 ASIA JACKSON S MELT SUPERINTENDANT Ot C79.51 SECONDARY MALIGNANT NEOPLASM OF BONE 01/28/2016 ASIA JACKSON S MELT SUPERINTENDANT Ot Z79.899 OTHER DIRECTOR OF INSTITUTIONAL SALES (CURRENT) DRUG THERAPY 01/29/2016 ASIA JACKSON S MELT SUPERINTENDANT Ot C61 MALIGNANT NEOPLASM OF PROSTATE 01/29/2016 ASIA JACKSON S MELT SUPERINTENDANT Ot C79.51 SECONDARY MALIGNANT NEOPLASM OF BONE 01/29/2016 ASIA JACKSON S MELT SUPERINTENDANT Ot Z79.899 OTHER RESIDENTIAL (CURRENT) DRUG THERAPY 02/04/2016 ROSALINE SCHMIDT N Ot C61 MALIGNANT NEOPLASM OF PROSTATE 02/04/2016 ROSALINE SCHMIDT N Ot C79.51 SECONDARY MALIGNANT NEOPLASM OF BONE 02/04/2016 ASIA JACKSON S MELT SUPERINTENDANT Ot C61 MALIGNANT NEOPLASM OF PROSTATE 02/04/2016 ASIA JACKSON S MELT SUPERINTENDANT Ot C79.51 SECONDARY MALIGNANT NEOPLASM OF BONE 02/04/2016 ASIA JACKSON S MELT SUPERINTENDANT Ot Z79.899 OTHER RESIDENTIAL (CURRENT) DRUG THERAPY 02/12/2016 ASIA JACKSON S MELT SUPERINTENDANT Ot C61 MALIGNANT NEOPLASM OF PROSTATE 02/12/2016 ASIA JACKSON S MELT SUPERINTENDANT Ot C79.51 SECONDARY MALIGNANT NEOPLASM OF BONE 02/12/2016 ASIA JACKSON Jocelin MELT SUPERINTENDANT Ot Z79.899 OTHER DIRECTOR OF INSTITUTIONAL SALES (CURRENT) DRUG THERAPY 02/20/2016 ASIA JACKSON MELT SUPERINTENDANT Ot C61 MALIGNANT NEOPLASM OF PROSTATE 02/20/2016 ASIA JACKSON Jocelin MELT SUPERINTENDANT Ot C79.51 SECONDARY MALIGNANT NEOPLASM OF BONE 02/20/2016 ASIA JACKSON MELT SUPERINTENDANT Ot Z79.899 OTHER DIRECTOR OF INSTITUTIONAL SALES (CURRENT) DRUG THERAPY 03/02/2016 ASIA JACKSON MELT SUPERINTENDANT Ot C61 MALIGNANT NEOPLASM OF PROSTATE 03/05/2016 ASIA JACKSON S MELT SUPERINTENDANT Ot C61 MALIGNANT NEOPLASM OF PROSTATE 03/11/2016 ASIA JACKSON S MELT SUPERINTENDANT Ot C61 MALIGNANT NEOPLASM OF PROSTATE 03/11/2016 ASIA JACKSON MELT SUPERINTENDANT Ot C79.51 SECONDARY MALIGNANT NEOPLASM OF BONE 03/11/2016 ASIA JACKSON MELT SUPERINTENDANT Ot Z79.899 OTHER RESIDENTIAL (CURRENT) DRUG THERAPY 03/15/2016 ASIA JACKSON MELT SUPERINTENDANT Ot C61 MALIGNANT NEOPLASM OF PROSTATE 03/15/2016 ASIA JACKSON MELT SUPERINTENDANT Ot C79.51 SECONDARY MALIGNANT NEOPLASM OF BONE 03/18/2016 ASIA JACKSON MELT SUPERINTENDANT Ot C61 MALIGNANT NEOPLASM OF PROSTATE 03/18/2016 JESICA JACKSONAROLDO Monreal MELT SUPERINTENDANT Ot C79.51 SECONDARY MALIGNANT NEOPLASM OF BONE 03/18/2016 BRAYANROSALINE N Ot C61 MALIGNANT NEOPLASM OF PROSTATE 03/18/2016 BRAYANROSALINE N Ot C79.51 SECONDARY MALIGNANT NEOPLASM OF BONE 03/18/2016 BRAYANROSALINE N Ot Z79.899 OTHER RESIDENTIAL (CURRENT) DRUG THERAPY 03/23/2016 ASIA JACKSON MELT SUPERINTENDANT Ot C61 MALIGNANT NEOPLASM OF PROSTATE 03/31/2016 ASIA JACKSON MELT SUPERINTENDANT Ot C61 MALIGNANT NEOPLASM OF PROSTATE 03/31/2016 ASIA JACKSON S MELT SUPERINTENDANT Ot C79.51 SECONDARY MALIGNANT NEOPLASM OF BONE 03/31/2016 ASIA JACKSON MELT SUPERINTENDANT Ot Z79.899 OTHER DIRECTOR OF INSTITUTIONAL SALES (CURRENT) DRUG THERAPY 04/02/2016 ASIA JACKSON MELT SUPERINTENDANT Ot C61 MALIGNANT NEOPLASM OF PROSTATE 04/02/2016 ASIA JACKSON MELT SUPERINTENDANT Ot C79.51 SECONDARY MALIGNANT NEOPLASM OF BONE 04/02/2016 GEORGINA HAIRSTON Ot I51.7 CARDIOMEGALY 04/02/2016 ALISHA ORELLANA GEORGINA K Ot R00.0 TACHYCARDIA, UNSPECIFIED 04/02/2016 GEORGINA HAIRSTON Ot Z51.81 ENCOUNTER FOR THERAPEUTIC DRUG LEVEL MON 04/02/2016 GEORGINA HAIRSTON Ot Z79.899 OTHER DIRECTOR OF INSTITUTIONAL SALES (CURRENT) DRUG THERAPY 04/05/2016 GEORGINA HAIRSTON Ot I51.7 CARDIOMEGALY 04/05/2016 ALISHA ORELLANA GEORGINA K Ot R00.0 TACHYCARDIA, UNSPECIFIED 04/05/2016 ALISHA ORELLANA GEORGINA K Ot Z51.81 ENCOUNTER FOR THERAPEUTIC DRUG LEVEL MON 04/05/2016 GEORGINA HAIRSTON Ot Z79.899 OTHER DIRECTOR OF INSTITUTIONAL SALES (CURRENT) DRUG THERAPY 04/06/2016 BRAYAN, KATARINASHAY N Ot C61 MALIGNANT NEOPLASM OF PROSTATE 04/06/2016 BRAYAN, KATARINASHAY N Ot C79.51 SECONDARY MALIGNANT NEOPLASM OF BONE 04/06/2016 BRAYANROSALINE TORRES N Ot Z79.899 OTHER RESIDENTIAL (CURRENT) DRUG THERAPY 04/08/2016 ASIA JACKSON MELT SUPERINTENDANT Ot C61 MALIGNANT NEOPLASM OF PROSTATE 04/08/2016 BRAYAN ROSLAINE N Ot C61 MALIGNANT NEOPLASM OF PROSTATE 04/08/2016 BRAYAN BOBAN N Ot C79.51 SECONDARY MALIGNANT NEOPLASM OF BONE 04/08/2016 BRAYANROSALINE TORRES N Ot Z79.899 OTHER DIRECTOR OF INSTITUTIONAL SALES (CURRENT) DRUG THERAPY 04/09/2016 BRAYAN, KATARINASHAY N Ot C61 MALIGNANT NEOPLASM OF PROSTATE 04/09/2016 BRAYAN BOBAN N Ot C79.51 SECONDARY MALIGNANT NEOPLASM OF BONE 04/09/2016 BRAYAN BOBAN N Ot Z79.899 OTHER DIRECTOR OF INSTITUTIONAL SALES (CURRENT) DRUG THERAPY 04/14/2016 ASIA JACKSON MELT SUPERINTENDANT Ot C61 MALIGNANT NEOPLASM OF PROSTATE 04/14/2016 ASIA JACKSONP Ot C79.51 SECONDARY MALIGNANT NEOPLASM OF BONE 04/14/2016 ASIA JACKSONP Ot Z79.899 OTHER DIRECTOR OF INSTITUTIONAL SALES (CURRENT) DRUG THERAPY 04/14/2016 ASIA JACKSONP Ot C61 MALIGNANT NEOPLASM OF PROSTATE 04/14/2016 JACKSON, HILAH S MELT SUPERINTENDANT Ot C79.51 SECONDARY MALIGNANT NEOPLASM OF BONE 04/14/2016 ASIA JACKSON MELT SUPERINTENDANT Ot Z79.899 OTHER DIRECTOR OF INSTITUTIONAL SALES (CURRENT) DRUG THERAPY 04/16/2016 ASIA JACKSON MELT SUPERINTENDANT Ot C61 MALIGNANT NEOPLASM OF PROSTATE 04/16/2016 ASIA JACKSON MELT SUPERINTENDANT Ot C79.51 SECONDARY MALIGNANT NEOPLASM OF BONE 04/16/2016 ASIA JACKSON MELT SUPERINTENDANT Ot Z79.899 OTHER RESIDENTIAL (CURRENT) DRUG THERAPY 04/22/2016 ASIA JACKSON MELT SUPERINTENDANT Ot C61 MALIGNANT NEOPLASM OF PROSTATE 04/27/2016 ASIA JACKSON MELT SUPERINTENDANT Ot C61 MALIGNANT NEOPLASM OF PROSTATE 04/27/2016 ASIA JACKSON MELT SUPERINTENDANT Ot C79.51 SECONDARY MALIGNANT NEOPLASM OF BONE 04/30/2016 ROSALINE SCHMIDT N Ot C61 MALIGNANT NEOPLASM OF PROSTATE 04/30/2016 ROSALINE SCHMIDT N Ot C79.51 SECONDARY MALIGNANT NEOPLASM OF BONE 04/30/2016 BRAYANROSALINE N Ot Z51.11 ENCOUNTER FOR ANTINEOPLASTIC CHEMOTHERAP 04/30/2016 KATARINA SCHMIDTSHAY N Ot Z79.899 OTHER RESIDENTIAL (CURRENT) DRUG THERAPY 05/04/2016 ASIA JACKSON MELT SUPERINTENDANT Ot C61 MALIGNANT NEOPLASM OF PROSTATE 05/06/2016 ASIA JACKSON MELT SUPERINTENDANT Ot C61 MALIGNANT NEOPLASM OF PROSTATE 05/06/2016 ASIA JACKSON MELT SUPERINTENDANT Ot C61 MALIGNANT NEOPLASM OF PROSTATE 05/06/2016 ASIA JACKSON MELT SUPERINTENDANT Ot C79.51 SECONDARY MALIGNANT NEOPLASM OF BONE 05/06/2016 ASIA JACKSON MELT SUPERINTENDANT Ot Z79.899 OTHER RESIDENTIAL (CURRENT) DRUG THERAPY 05/06/2016 GEORGINA HAIRSTON Ot I51.7 CARDIOMEGALY 05/06/2016 GEORGINA HAIRSTON Ot R00.0 TACHYCARDIA, UNSPECIFIED 05/06/2016 GEORGINA HAIRSTON Ot Z51.81 ENCOUNTER FOR THERAPEUTIC DRUG LEVEL MON 05/06/2016 GEORGINA HAIRSTON Ot Z79.899 OTHER DIRECTOR OF INSTITUTIONAL SALES (CURRENT) DRUG THERAPY 05/14/2016 ASIA JACKSON MELT SUPERINTENDANT Ot C61 MALIGNANT NEOPLASM OF PROSTATE 05/14/2016 JESICA JACKSONAH S MELT SUPERINTENDANT Ot C79.51 SECONDARY MALIGNANT NEOPLASM OF BONE 05/14/2016 JACKSONASIA Monreal MELT SUPERINTENDANT Ot C61 MALIGNANT NEOPLASM OF PROSTATE 05/14/2016 ASIA JACKSON MELT SUPERINTENDANT Ot C79.51 SECONDARY MALIGNANT NEOPLASM OF BONE 05/21/2016 JACKSON, JESICAAROLDO Monreal MELT SUPERINTENDANT Ot C61 MALIGNANT NEOPLASM OF PROSTATE 05/24/2016 JACKSONASIA Monreal MELT SUPERINTENDANT Ot C61 MALIGNANT NEOPLASM OF PROSTATE 05/24/2016 JACKSONASIA Monreal MELT SUPERINTENDANT Ot C79.51 SECONDARY MALIGNANT NEOPLASM OF BONE 05/24/2016 JESICA JACKSONAROLDO Monreal MELT SUPERINTENDANT Ot Z79.899 OTHER RESIDENTIAL (CURRENT) DRUG THERAPY 05/24/2016 GEORGINA HAIRSTON Ot I51.7 CARDIOMEGALY 05/24/2016 GEORGINA HAIRSTON Ot R00.0 TACHYCARDIA, UNSPECIFIED 05/24/2016 GEORGINA HAIRSTON Ot Z51.81 ENCOUNTER FOR THERAPEUTIC DRUG LEVEL MON 05/24/2016 GEORGINA HAIRSTON Ot Z79.899 OTHER RESIDENTIAL (CURRENT) DRUG THERAPY 05/27/2016 JESICA JACKSONAROLDO Jocelin MELT SUPERINTENDANT Ot C61 MALIGNANT NEOPLASM OF PROSTATE 06/04/2016 JESICA JACKSONAROLDO Monreal MELT SUPERINTENDANT Ot C61 MALIGNANT NEOPLASM OF PROSTATE 06/04/2016 JACKSONASIA Monreal MELT SUPERINTENDANT Ot C79.51 SECONDARY MALIGNANT NEOPLASM OF BONE 06/09/2016 ROSALINE SCHMIDT Ot C61 MALIGNANT NEOPLASM OF PROSTATE 06/09/2016 BRAYANROSALINE N Ot C79.51 SECONDARY MALIGNANT NEOPLASM OF BONE 06/16/2016 ASIA JACKSON MELT SUPERINTENDANT Ot C61 MALIGNANT NEOPLASM OF PROSTATE 06/16/2016 JACKSONASIA Monreal MELT SUPERINTENDANT Ot C79.51 SECONDARY MALIGNANT NEOPLASM OF BONE 06/28/2016 Ot 427.89 CARDIAC DYSRHYTHMIAS NEC 06/29/2016 PINO EDWARDS MD Ot Z01.818 ENCOUNTER FOR OTHER PREPROCEDURAL EXAMIN 06/29/2016 PINO EDWARDS MD Ot Z12.11 ENCOUNTER FOR SCREENING FOR MALIGNANT NE 06/30/2016 Ot 185 MALIGN NEOPL PROSTATE 06/30/2016 Ot 793.99 OTH NOSP ( ABN) FINDINGS RADIOLOGICAL O 06/30/2016 BEBO HUTCHINS MD Ot 401.9 HYPERTENSION NOS 06/30/2016 BEBO HUTCHINS MD Ot 785.1 PALPITATIONS 06/30/2016 BEBO HUTCHINS MD Ot 401.9 HYPERTENSION NOS 06/30/2016 BEBO HUTCHINS MD Ot 785.1 PALPITATIONS 06/30/2016 ROSALINE SCHMIDT Ot 185 MALIGN NEOPL PROSTATE 06/30/2016 ROSALINE SCHMIDT Ot V58.69 OTH MED,LT,CURRENT USE 06/30/2016 ROSALINE SCHMIDT Ot V82.81 SCREENING FOR OSTEOPOROSIS 06/30/2016 NIKKI BRINK, Laura LY Ot 185 MALIGN NEOPL PROSTATE 06/30/2016 NIKKI BRINK, Laura LY Ot 198.5 SECONDARY MALIG NICHOLAS BONE 06/30/2016 NIKKI BRINK, Laura LY Ot 715.90 OSTEOARTHROS NOS-UNSPEC 06/30/2016 NIKKI BRINK, Laura LY Ot 719.41 JOINT PAIN-SHLDER 06/30/2016 ASIA JACKSON MELT SUPERINTENDANT Ot 185 MALIGN NEOPL PROSTATE 06/30/2016 Ot 427.89 CARDIAC DYSRHYTHMIAS NEC 06/30/2016 KARLEY BRINK, BEN Nur Ot 185 MALIGN NEOPL PROSTATE 06/30/2016 GEORGINA HAIRSTON Ot E78.5 HYPERLIPIDEMIA, UNSPECIFIED 06/30/2016 GEORGINA HAIRSTON Ot I10 ESSENTIAL (PRIMARY) HYPERTENSION 06/30/2016 GEORGINA HAIRSTON Ot I25.9 CHRONIC ISCHEMIC HEART DISEASE, UNSPECIF 06/30/2016 GEORGINA HAIRSTON Ot I65.29 OCCLUSION AND STENOSIS OF UNSPECIFIED CA 06/30/2016 GEORGINA HAIRSTON Ot R09.89 OTH SYMPTOMS AND SIGNS INVOLVING THE CIR 06/30/2016 Ot E78.5 HYPERLIPIDEMIA, UNSPECIFIED 06/30/2016 Ot I10 ESSENTIAL ( PRIMARY) HYPERTENSION 06/30/2016 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 06/30/2016 Ot I65.29 OCCLUSION AND STENOSIS OF UNSPECIFIED CA 06/30/2016 Ot I73.9 PERIPHERAL VASCULAR DISEASE, UNSPECIFIED 06/30/2016 ASIA JACKSON MELT SUPERINTENDANT Ot 185 MALIGN NEOPL PROSTATE 06/30/2016 ASIA JACKSONP Ot V58.69 [facility],CURRENT USE 06/30/2016 ASIA JACKSON MELT SUPERINTENDANT Ot C61 MALIGNANT NEOPLASM OF PROSTATE 06/30/2016 JACKSONASIA Monreal MELT SUPERINTENDANT Ot C79.51 SECONDARY MALIGNANT NEOPLASM OF BONE 06/30/2016 ASIA JACKSON MELT SUPERINTENDANT Ot Z79.899 OTHER DIRECTOR OF INSTITUTIONAL SALES (CURRENT) DRUG THERAPY 06/30/2016 JESICA JACKSONAROLDO Monreal MELT SUPERINTENDANT Ot C61 MALIGNANT NEOPLASM OF PROSTATE 06/30/2016 JACKSON ASIA S MELT SUPERINTENDANT Ot C79.51 SECONDARY MALIGNANT NEOPLASM OF BONE 06/30/2016 ASIA JACKSON MELT SUPERINTENDANT Ot Z79.899 OTHER DIRECTOR OF INSTITUTIONAL SALES (CURRENT) DRUG THERAPY 06/30/2016 BRAYAN ROSALINE N Ot C61 MALIGNANT NEOPLASM OF PROSTATE 06/30/2016 BRAYANROSALINE TORRES N Ot C79.51 SECONDARY MALIGNANT NEOPLASM OF BONE 06/30/2016 JESICA JACKSONAROLDO S MELT SUPERINTENDANT Ot C61 MALIGNANT NEOPLASM OF PROSTATE 06/30/2016 RENETTA ASIA S MELT SUPERINTENDANT Ot C79.51 SECONDARY MALIGNANT NEOPLASM OF BONE 06/30/2016 JACKSONASIA Monreal S MELT SUPERINTENDANT Ot Z79.899 OTHER DIRECTOR OF INSTITUTIONAL SALES (CURRENT) DRUG THERAPY 06/30/2016 RENETTA ASIA S MELT SUPERINTENDANT Ot C61 MALIGNANT NEOPLASM OF PROSTATE 06/30/2016 RENETTA ASIA S MELT SUPERINTENDANT Ot C79.51 SECONDARY MALIGNANT NEOPLASM OF BONE 06/30/2016 JACKSON ASIA S MELT SUPERINTENDANT Ot Z79.899 OTHER DIRECTOR OF INSTITUTIONAL SALES (CURRENT) DRUG THERAPY 06/30/2016 JESICA JACKSONAROLDO S MELT SUPERINTENDANT Ot C61 MALIGNANT NEOPLASM OF PROSTATE 06/30/2016 RENETTA ASIA S MELT SUPERINTENDANT Ot C61 MALIGNANT NEOPLASM OF PROSTATE 06/30/2016 RENETTA ASIA S MELT SUPERINTENDANT Ot C79.51 SECONDARY MALIGNANT NEOPLASM OF BONE 06/30/2016 JESICA JACKSONAROLDO Monreal MELT SUPERINTENDANT Ot Z79.899 OTHER RESIDENTIAL (CURRENT) DRUG THERAPY 06/30/2016 ASIA JACKSON S MELT SUPERINTENDANT Ot C61 MALIGNANT NEOPLASM OF PROSTATE 06/30/2016 ASIA JACKSON S MELT SUPERINTENDANT Ot C79.51 SECONDARY MALIGNANT NEOPLASM OF BONE 06/30/2016 ASIA JACKSON S MELT SUPERINTENDANT Ot C61 MALIGNANT NEOPLASM OF PROSTATE 06/30/2016 ASIA JACKSON S MELT SUPERINTENDANT Ot C61 MALIGNANT NEOPLASM OF PROSTATE 06/30/2016 JACKSONJESICAAROLDO Monreal MELT SUPERINTENDANT Ot C79.51 SECONDARY MALIGNANT NEOPLASM OF BONE 06/30/2016 JESICA JACKSONAROLDO Monreal MELT SUPERINTENDANT Ot Z79.899 OTHER DIRECTOR OF INSTITUTIONAL SALES (CURRENT) DRUG THERAPY 06/30/2016 GEORGINA HAIRSTON Ot I51.7 CARDIOMEGALY 06/30/2016 GEORGINA HAIRSTON Ot R00.0 TACHYCARDIA, UNSPECIFIED 06/30/2016 GEORGINA HAIRSTON Ot Z51.81 ENCOUNTER FOR THERAPEUTIC DRUG LEVEL MON 06/30/2016 GEORGINA HAIRSTON Ot Z79.899 OTHER DIRECTOR OF INSTITUTIONAL SALES (CURRENT) DRUG THERAPY 06/30/2016 ROSALINE SCHMIDT Ot C61 MALIGNANT NEOPLASM OF PROSTATE 06/30/2016 ROSALINE SCHMIDT Ot C79.51 SECONDARY MALIGNANT NEOPLASM OF BONE 06/30/2016 ROSALINE SCHMIDT Ot Z51.11 ENCOUNTER FOR ANTINEOPLASTIC CHEMOTHERAP 06/30/2016 ROSALINE SCHMIDT Ot Z79.899 OTHER RESIDENTIAL (CURRENT) DRUG THERAPY 06/30/2016 ASIA JACKSON MELT SUPERINTENDANT Ot C61 MALIGNANT NEOPLASM OF PROSTATE 06/30/2016 ASIA JACKSON MELT SUPERINTENDANT Ot C61 MALIGNANT NEOPLASM OF PROSTATE 06/30/2016 ASIA JACKSON MELT SUPERINTENDANT Ot C79.51 SECONDARY MALIGNANT NEOPLASM OF BONE 06/30/2016 ROSALINE SCHMIDT Ot C61 MALIGNANT NEOPLASM OF PROSTATE 06/30/2016 ROSALINE SCHMIDT Ot C79.51 SECONDARY MALIGNANT NEOPLASM OF BONE 06/30/2016 PINO EDWARDS MD Ot Z01.818 ENCOUNTER FOR OTHER PREPROCEDURAL EXAMIN 06/30/2016 PINO EDWARDS MD, Ot Z12.11 ENCOUNTER FOR SCREENING FOR MALIGNANT NE 06/30/2016 Ot 427.89 CARDIAC DYSRHYTHMIAS NEC 06/30/2016 PINO EDWARDS MD, Ot 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 OF INTEST, PART UNSP, W/O PERF 06/30/2016 PINO EDWARDS MD, Ot K64.0 FIRST DEGREE HEMORRHOIDS 06/30/2016 PINO EDWARDS MD, Ot Z12.11 ENCOUNTER FOR SCREENING FOR MALIGNANT NE 06/30/2016 BRAYAN, BOBAN N Ot C61 MALIGNANT NEOPLASM OF PROSTATE 06/30/2016 BRAYAN, ROSALINE N Ot C79.51 SECONDARY MALIGNANT NEOPLASM OF BONE 07/01/2016 PINO EDWARDS MD, Ot 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 OF INTEST, PART UNSP, W/O PERF 07/01/2016 PINO EDWARDS MD, Ot K64.0 FIRST DEGREE HEMORRHOIDS 07/01/2016 PINO EDWARDS MD, Ot Z12.11 ENCOUNTER FOR SCREENING FOR MALIGNANT NE 07/06/2016 BRAYAN ROSALINE N Ot C61 MALIGNANT NEOPLASM OF PROSTATE 07/06/2016 BRAYANROSALINE N Ot C79.51 SECONDARY MALIGNANT NEOPLASM OF BONE 07/06/2016 BRAYANROSALINE N Ot Z51.11 ENCOUNTER FOR ANTINEOPLASTIC CHEMOTHERAP 07/06/2016 BRAYANROSALINE N Ot Z79.899 OTHER DIRECTOR OF INSTITUTIONAL SALES (CURRENT) DRUG THERAPY 07/07/2016 BRAYAN, ROSALINE N Ot C61 MALIGNANT NEOPLASM OF PROSTATE 07/07/2016 BRAYANROSALINE N Ot C79.51 SECONDARY MALIGNANT NEOPLASM OF BONE 07/09/2016 PINO EDWARDS MD, Ot Z01.818 ENCOUNTER FOR OTHER PREPROCEDURAL EXAMIN 07/09/2016 PINO EDWARDS MD, Ot Z12.11 ENCOUNTER FOR SCREENING FOR MALIGNANT NE 08/02/2016 BRAYAN KATARINASHAY N Ot C61 MALIGNANT NEOPLASM OF PROSTATE 08/02/2016 BRAYAN BOBAN N Ot C79.51 SECONDARY MALIGNANT NEOPLASM OF BONE 08/02/2016 BRAYANROSALINE N Ot Z51.11 ENCOUNTER FOR ANTINEOPLASTIC CHEMOTHERAP 08/02/2016 BRAYAN, ROSALINE N Ot Z79.899 OTHER DIRECTOR OF INSTITUTIONAL SALES (CURRENT) DRUG THERAPY 08/18/2016 BRAYAN BOBAN N Ot C61 MALIGNANT NEOPLASM OF PROSTATE 08/18/2016 BRAYAN, BOBAN N Ot C79.51 SECONDARY MALIGNANT NEOPLASM OF BONE 08/18/2016 BRAYAN BOBAN N Ot Z79.899 OTHER RESIDENTIAL (CURRENT) DRUG THERAPY 09/02/2016 BRAYAN KATARINAAN N Ot C61 MALIGNANT NEOPLASM OF PROSTATE 09/02/2016 BRAYAN BOBAN N Ot C79.51 SECONDARY MALIGNANT NEOPLASM OF BONE 09/02/2016 BRAYANROSALINE N Ot Z79.899 OTHER DIRECTOR OF INSTITUTIONAL SALES (CURRENT) DRUG THERAPY 09/24/2016 VANDANA BRINK, DENZEL Cruz Ot C61 MALIGNANT NEOPLASM OF PROSTATE 09/30/2016 VANDANA BRINK, DENZEL Cruz Ot C61 MALIGNANT NEOPLASM OF PROSTATE 09/30/2016 VANDANA BRINK, DENZEL Cruz Ot C61 MALIGNANT NEOPLASM OF PROSTATE 09/30/2016 VANDANA BRINK, DENZEL Cruz Ot C61 MALIGNANT NEOPLASM OF PROSTATE 09/30/2016 VANDANA BRINK, DENZEL Cruz Ot C61 MALIGNANT NEOPLASM OF PROSTATE 09/30/2016 VANDANA BRINK, DENZEL Cruz Ot C61 MALIGNANT NEOPLASM OF PROSTATE 09/30/2016 VANDANA BRINK, DENZEL Cruz Ot C61 MALIGNANT NEOPLASM OF PROSTATE 10/04/2016 BRAYAN BOBAN N Ot C61 MALIGNANT NEOPLASM OF PROSTATE 10/04/2016 BRAYAN BOBAN N Ot C79.51 SECONDARY MALIGNANT NEOPLASM OF BONE 10/04/2016 BRAYAN BOBAN N Ot Z79.899 OTHER DIRECTOR OF INSTITUTIONAL SALES (CURRENT) DRUG THERAPY 10/10/2016 BRAYANROSALINE TORRES N Ot C61 MALIGNANT NEOPLASM OF PROSTATE 10/10/2016 BRAYANKATARINAAN N Ot C79.51 SECONDARY MALIGNANT NEOPLASM OF BONE 10/10/2016 BRAYAN BOBAN N Ot Z79.899 OTHER DIRECTOR OF INSTITUTIONAL SALES (CURRENT) DRUG THERAPY 10/11/2016 DENZEL ROSS MD Ot C61 MALIGNANT NEOPLASM OF PROSTATE 10/28/2016 DENZEL ROSS MD Ot C61 MALIGNANT NEOPLASM OF PROSTATE 10/28/2016 DENZEL ROSS MD Ot C61 MALIGNANT NEOPLASM OF PROSTATE 10/28/2016 DENZEL ROSS MD Ot C61 MALIGNANT NEOPLASM OF PROSTATE 10/28/2016 DENZEL ROSS MD Ot C61 MALIGNANT NEOPLASM OF PROSTATE 10/29/2016 BRAYAN BOBAN N Ot C61 MALIGNANT NEOPLASM OF PROSTATE 10/29/2016 BRAYAN BOBAN N Ot C79.51 SECONDARY MALIGNANT NEOPLASM OF BONE 10/29/2016 BRAYAN BOBAN N Ot Z79.899 OTHER DIRECTOR OF INSTITUTIONAL SALES (CURRENT) DRUG THERAPY 10/29/2016 DENZEL ROSS MD Ot C61 MALIGNANT NEOPLASM OF PROSTATE 11/18/2016 DENZEL ROSS MD Ot C61 MALIGNANT NEOPLASM OF PROSTATE 11/22/2016 VANDANA BRINK, DENZEL Cruz Ot C61 MALIGNANT NEOPLASM OF PROSTATE 12/16/2016 BRAYAN, BOBAN N Ot C61 MALIGNANT NEOPLASM OF PROSTATE 12/16/2016 BRAYAN BOBAN N Ot C79.51 SECONDARY MALIGNANT NEOPLASM OF BONE 12/16/2016 ROSALINE SCHMIDT N Ot Z79.899 OTHER RESIDENTIAL (CURRENT) DRUG THERAPY 01/17/2017 VANDANA BRINK, DENZEL Cruz Ot C61 MALIGNANT NEOPLASM OF PROSTATE 01/26/2017 BRAYAN, BOBSHAY N Ot C61 MALIGNANT NEOPLASM OF PROSTATE 01/26/2017 ROSALINE SCHMIDT N Ot C79.51 SECONDARY MALIGNANT NEOPLASM OF BONE 01/26/2017 ROSALINE SCHMIDT N Ot Z79.899 OTHER DIRECTOR OF INSTITUTIONAL SALES (CURRENT) DRUG THERAPY 01/30/2017 BRAYANROSALINE N Ot C61 MALIGNANT NEOPLASM OF PROSTATE 01/30/2017 BRAYAN BOBAN N Ot C79.51 SECONDARY MALIGNANT NEOPLASM OF BONE 01/30/2017 ROSALINE SCHMIDT N Ot Z79.899 OTHER RESIDENTIAL (CURRENT) DRUG THERAPY 02/02/2017 ROSALINE SCHMIDT N Ot C61 MALIGNANT NEOPLASM OF PROSTATE 02/02/2017 BRAYAN BOBAN N Ot C79.51 SECONDARY MALIGNANT NEOPLASM OF BONE 02/02/2017 ROSALINE SCHMIDT N Ot Z79.899 OTHER DIRECTOR OF INSTITUTIONAL SALES (CURRENT) DRUG THERAPY 02/03/2017 BRAYANROSALINE TORRES N Ot C61 MALIGNANT NEOPLASM OF PROSTATE 02/03/2017 BRAYANROSALINE N Ot C79.51 SECONDARY MALIGNANT NEOPLASM OF BONE 02/03/2017 ROSALINE SCHMIDT N Ot Z51.11 ENCOUNTER FOR ANTINEOPLASTIC CHEMOTHERAP 02/03/2017 ROSALINE SCHMIDT N Ot Z79.899 OTHER RESIDENTIAL (CURRENT) DRUG THERAPY 02/16/2017 BRAYAN BOBSHAY N Ot C61 MALIGNANT NEOPLASM OF PROSTATE 02/23/2017 ROSALINE SCHMIDT N Ot C61 MALIGNANT NEOPLASM OF PROSTATE 03/02/2017 VANDANA BRINK, DENZEL Cruz Ot C61 MALIGNANT NEOPLASM OF PROSTATE 03/03/2017 VANDANA BRINK, DENZEL Cruz Ot C61 MALIGNANT NEOPLASM OF PROSTATE 03/16/2017 KARLEY BRINK, BEN A Ot D64.9 ANEMIA, UNSPECIFIED 03/16/2017 KARLEY BRINK, BEN A Ot D64.9 ANEMIA, UNSPECIFIED 03/16/2017 KARLEY BRINK, BEN A Ot D64.9 ANEMIA, UNSPECIFIED 03/16/2017 KARLEY BRINK, BEN A Ot D64.9 ANEMIA, UNSPECIFIED 03/16/2017 BEN CRANDALL MD A Ot D64.9 ANEMIA, UNSPECIFIED 03/16/2017 KARLEY BRINK, BEN A Ot D64.9 ANEMIA, UNSPECIFIED 03/18/2017 BRAYAN, BOBAN N Ot C61 MALIGNANT NEOPLASM OF PROSTATE 03/18/2017 BRAYAN, BOBAN N Ot C79.51 SECONDARY MALIGNANT NEOPLASM OF BONE 03/18/2017 BRAYAN, BOBAN N Ot Z51.11 ENCOUNTER FOR ANTINEOPLASTIC CHEMOTHERAP 03/18/2017 BRAYAN, BOBAN N Ot Z79.899 OTHER DIRECTOR OF INSTITUTIONAL SALES (CURRENT) DRUG THERAPY 03/24/2017 BRAYAN, BOBAN N Ot C61 MALIGNANT NEOPLASM OF PROSTATE 03/24/2017 BRAYAN, BOBAN N Ot C79.51 SECONDARY MALIGNANT NEOPLASM OF BONE 03/24/2017 BRAYAN, BOBAN N Ot Z51.11 ENCOUNTER FOR ANTINEOPLASTIC CHEMOTHERAP 03/24/2017 BRAYAN, BOBAN N Ot Z79.899 OTHER RESIDENTIAL (CURRENT) DRUG THERAPY 04/05/2017 BRAYAN, BOBAN N Ot C61 MALIGNANT NEOPLASM OF PROSTATE 04/05/2017 BRAYAN, BOBAN N Ot C79.51 SECONDARY MALIGNANT NEOPLASM OF BONE 04/05/2017 BRAYAN, BOBAN N Ot Z01.89 ENCOUNTER FOR OTHER SPECIFIED SPECIAL EX 04/06/2017 BRAYAN, BOBAN N Ot C61 MALIGNANT NEOPLASM OF PROSTATE 04/06/2017 BRAYAN, BOBAN N Ot C79.51 SECONDARY MALIGNANT NEOPLASM OF BONE 04/06/2017 BRAYAN, BOBAN N Ot Z01.89 ENCOUNTER FOR OTHER SPECIFIED SPECIAL EX 04/06/2017 BRAYAN, BOBAN N Ot C61 MALIGNANT NEOPLASM OF PROSTATE 04/06/2017 BRAYAN, BOBAN N Ot C79.51 SECONDARY MALIGNANT NEOPLASM OF BONE 04/06/2017 BRAYAN, BOBAN N Ot Z01.89 ENCOUNTER FOR OTHER SPECIFIED SPECIAL EX 04/06/2017 BRAYAN, BOBAN N Ot C61 MALIGNANT NEOPLASM OF PROSTATE 04/06/2017 BRAYAN, BOBAN N Ot C79.51 SECONDARY MALIGNANT NEOPLASM OF BONE 04/06/2017 BRAYAN, BOBAN N Ot Z01.89 ENCOUNTER FOR OTHER SPECIFIED SPECIAL EX 04/06/2017 BRAYAN, BOBAN N Ot C61 MALIGNANT NEOPLASM OF PROSTATE 04/06/2017 BRAYAN, BOBAN N Ot C79.51 SECONDARY MALIGNANT NEOPLASM OF BONE 04/06/2017 BRAYAN, BOBAN N Ot Z01.89 ENCOUNTER FOR OTHER SPECIFIED SPECIAL EX 04/06/2017 ROSALINE SCHMIDT N Ot C61 MALIGNANT NEOPLASM OF PROSTATE 04/06/2017 ROSALINE SCHMIDT N Ot C79.51 SECONDARY MALIGNANT NEOPLASM OF BONE 04/06/2017 ROSALINE SCHMIDT N Ot Z01.89 ENCOUNTER FOR OTHER SPECIFIED SPECIAL EX 04/06/2017 ROSALINE SCHMIDT N Ot C61 MALIGNANT NEOPLASM OF PROSTATE 04/06/2017 ROSALINE SCHMIDT N Ot C79.51 SECONDARY MALIGNANT NEOPLASM OF BONE 04/06/2017 ROSALINE SCHMIDT N Ot Z01.89 ENCOUNTER FOR OTHER SPECIFIED SPECIAL EX 04/15/2017 YARI POE DELIVERY DIRECTOR Ot M47.812 SPONDYLOSIS W/O MYELOPATHY OR RADICULOPA 04/15/2017 YARI POE DELIVERY DIRECTOR Ot M47.814 SPONDYLOSIS W/O MYELOPATHY OR RADICULOPA 04/15/2017 YARI POE DELIVERY DIRECTOR Ot Z95.0 PRESENCE OF CARDIAC PACEMAKER 04/26/2017 ROSALINE SCHMIDT N Ot C61 MALIGNANT NEOPLASM OF PROSTATE 04/26/2017 ROSALINE SCHMIDT N Ot C79.51 SECONDARY MALIGNANT NEOPLASM OF BONE 04/26/2017 ROSALINE SCHMIDT N Ot Z01.89 ENCOUNTER FOR OTHER SPECIFIED SPECIAL EX 05/03/2017 ROSALINE SCHMIDT N Ot C61 MALIGNANT NEOPLASM OF PROSTATE 05/03/2017 ROSALINE SCHMIDT N Ot C79.51 SECONDARY MALIGNANT NEOPLASM OF BONE 05/03/2017 ROSALINE SCHMIDT N Ot Z51.11 ENCOUNTER FOR ANTINEOPLASTIC CHEMOTHERAP 05/03/2017 ROSALINE SCHMIDT N Ot Z79.899 OTHER DIRECTOR OF INSTITUTIONAL SALES (CURRENT) DRUG THERAPY 05/04/2017 ROSALINE SCHMIDT N Ot C61 MALIGNANT NEOPLASM OF PROSTATE 05/04/2017 ROSALINE SCHMIDT N Ot C79.51 SECONDARY MALIGNANT NEOPLASM OF BONE 05/04/2017 ROSALINE SCHMIDT N Ot Z01.89 ENCOUNTER FOR OTHER SPECIFIED SPECIAL EX 05/05/2017 YARI POE DELIVERY DIRECTOR Ot M47.812 SPONDYLOSIS W/O MYELOPATHY OR RADICULOPA 05/05/2017 YARI POE DELIVERY DIRECTOR Ot M47.814 SPONDYLOSIS W/O MYELOPATHY OR RADICULOPA 05/05/2017 YARI POE DELIVERY DIRECTOR Ot Z95.0 PRESENCE OF CARDIAC PACEMAKER 05/18/2017 YARI POE DELIVERY DIRECTOR Ot M47.812 SPONDYLOSIS W/O MYELOPATHY OR RADICULOPA 05/18/2017 YARI POE DELIVERY DIRECTOR Ot M47.814 SPONDYLOSIS W/O MYELOPATHY OR RADICULOPA 05/18/2017 YARI POE DELIVERY DIRECTOR Ot Z95.0 PRESENCE OF CARDIAC PACEMAKER 06/01/2017 BEN CRANDALL MD Ot N43.3 HYDROCELE, UNSPECIFIED 06/01/2017 BEN CRANDALL MD Ot N44.2 BENIGN CYST OF TESTIS 06/01/2017 ROSALINE SCHMIDT Ot C61 MALIGNANT NEOPLASM OF PROSTATE 06/01/2017 ROSALINE SCHMIDT Ot C79.51 SECONDARY MALIGNANT NEOPLASM OF BONE 06/01/2017 ROSALINE SCHMIDT Ot Z79.899 OTHER RESIDENTIAL (CURRENT) DRUG THERAPY 06/02/2017 BEN CRANDALL MD Ot K21.9 GASTRO-ESOPHAGEAL REFLUX DISEASE WITHOUT 06/02/2017 BEN CRANDALL MD Ot R73.09 OTHER ABNORMAL GLUCOSE 06/08/2017 BEN CRANDALL MD Ot N43.3 HYDROCELE, UNSPECIFIED 06/08/2017 BEN CRANDALL MD Ot N44.2 BENIGN CYST OF TESTIS 06/20/2017 ROSALINE SCHMIDT N Ot C61 MALIGNANT NEOPLASM OF PROSTATE 06/20/2017 ROSALINE SCHMIDT N Ot C79.51 SECONDARY MALIGNANT NEOPLASM OF BONE 06/20/2017 BRAYANROSALINE N Ot Z79.899 OTHER DIRECTOR OF INSTITUTIONAL SALES (CURRENT) DRUG THERAPY 06/21/2017 ROSALINE SCHMIDT Ot C61 MALIGNANT NEOPLASM OF PROSTATE 06/21/2017 BRAYANROSALINE N Ot C79.51 SECONDARY MALIGNANT NEOPLASM OF BONE 06/21/2017 ROSALINE SCHMIDT N Ot M47.816 SPONDYLOSIS W/O MYELOPATHY OR RADICULOPA 06/22/2017 PINO EDWARDS MD Ot C61 MALIGNANT NEOPLASM OF PROSTATE 06/22/2017 PINO EDWARDS MD, Ot C79.51 SECONDARY MALIGNANT NEOPLASM OF BONE 06/22/2017 PINO EDWARDS MD Ot E78.5 HYPERLIPIDEMIA, UNSPECIFIED 06/22/2017 PINO EDWARDS MD Ot I10 ESSENTIAL (PRIMARY) HYPERTENSION 06/22/2017 PINO EDWARDS MD Ot K21.0 GASTRO-ESOPHAGEAL REFLUX DISEASE WITH ES 06/22/2017 PINO EDWARDS MD Ot K29.70 GASTRITIS, UNSPECIFIED, WITHOUT BLEEDING 06/22/2017 PINO EDWARDS MD, Ot K44.9 DIAPHRAGMATIC HERNIA WITHOUT OBSTRUCTION 06/22/2017 PINO EDWARDS MD Ot Z79.899 OTHER DIRECTOR OF INSTITUTIONAL SALES (CURRENT) DRUG THERAPY 06/22/2017 PINO EDWARDS MD Ot Z95.0 PRESENCE OF CARDIAC PACEMAKER 06/22/2017 ROSALINE SCHMIDT N Ot C61 MALIGNANT NEOPLASM OF PROSTATE 06/22/2017 BRAYAN BOBAN N Ot C79.51 SECONDARY MALIGNANT NEOPLASM OF BONE 06/22/2017 BRAYAN KATARINAAN N Ot Z79.899 OTHER DIRECTOR OF INSTITUTIONAL SALES (CURRENT) DRUG THERAPY 06/25/2017 BRAYANROSALINE Ot C61 MALIGNANT NEOPLASM OF PROSTATE 06/25/2017 BRAYAN, ROSALINE N Ot C79.51 SECONDARY MALIGNANT NEOPLASM OF BONE 06/25/2017 BRAYANROSALINE Ot Z79.899 OTHER DIRECTOR OF INSTITUTIONAL SALES (CURRENT) DRUG THERAPY 06/27/2017 PINO EDWARDS MD Ot C61 MALIGNANT NEOPLASM OF PROSTATE 06/27/2017 PINO EDWARDS MD Ot C79.51 SECONDARY MALIGNANT NEOPLASM OF BONE 06/27/2017 PINO EDWARDS MD Ot E78.5 HYPERLIPIDEMIA, UNSPECIFIED 06/27/2017 PINO EDWARDS MD Ot I10 ESSENTIAL (PRIMARY) HYPERTENSION 06/27/2017 PINO EDWARDS MD Ot K21.0 GASTRO-ESOPHAGEAL REFLUX DISEASE WITH ES 06/27/2017 PINO EDWARDS MD Ot K29.70 GASTRITIS, UNSPECIFIED, WITHOUT BLEEDING 06/27/2017 PINO EDWARDS MD Ot K44.9 DIAPHRAGMATIC HERNIA WITHOUT OBSTRUCTION 06/27/2017 PINO EDWARDS MD Ot Z79.899 OTHER DIRECTOR OF INSTITUTIONAL SALES (CURRENT) DRUG THERAPY 06/27/2017 PINO EDWARDS MD Ot Z95.0 PRESENCE OF CARDIAC PACEMAKER 07/01/2017 ROSALINE SCHMIDT N Ot C61 MALIGNANT NEOPLASM OF PROSTATE 07/01/2017 BRAYAN, ROSALINE N Ot C79.51 SECONDARY MALIGNANT NEOPLASM OF BONE 07/01/2017 PINO EDWARDS MD Ot C61 MALIGNANT NEOPLASM OF PROSTATE 07/01/2017 PINO EDWARDS MD Ot C79.51 SECONDARY MALIGNANT NEOPLASM OF BONE 07/01/2017 PINO EDWARDS MD Ot E78.5 HYPERLIPIDEMIA, UNSPECIFIED 07/01/2017 PINO EDWARDS MD Ot I10 ESSENTIAL (PRIMARY) HYPERTENSION 07/01/2017 PINO EDWARDS MD Ot K21.0 GASTRO-ESOPHAGEAL REFLUX DISEASE WITH ES 07/01/2017 PINO EDWARDS MD Ot K29.70 GASTRITIS, UNSPECIFIED, WITHOUT BLEEDING 07/01/2017 PINO EDWARDS MD Ot K44.9 DIAPHRAGMATIC HERNIA WITHOUT OBSTRUCTION 07/01/2017 PINO EDWARDS MD Ot Z79.899 OTHER RESIDENTIAL (CURRENT) DRUG THERAPY 07/01/2017 PINO EDWARDS MD Ot Z95.0 PRESENCE OF CARDIAC PACEMAKER 07/07/2017 ASIA JACKSON Ot M89.9 DISORDER OF BONE, UNSPECIFIED 07/07/2017 ASIA JACKSON Ot Z85.46 PERSONAL HISTORY OF MALIGNANT NEOPLASM O 07/12/2017 ROSALINE SCHMIDT Ot C61 MALIGNANT NEOPLASM OF PROSTATE 07/12/2017 ROSALINE SCHMIDT Ot C79.51 SECONDARY MALIGNANT NEOPLASM OF BONE 07/12/2017 ROSAILNE SCHMIDT Ot M47.816 SPONDYLOSIS W/O MYELOPATHY OR RADICULOPA 07/13/2017 PINO EDWARDS MD Ot C61 MALIGNANT NEOPLASM OF PROSTATE 07/13/2017 PINO EDWARDS MD Ot C79.51 SECONDARY MALIGNANT NEOPLASM OF BONE 07/13/2017 PINO EDWARDS MD Ot E78.5 HYPERLIPIDEMIA, UNSPECIFIED 07/13/2017 PINO EDWARDS MD Ot I10 ESSENTIAL (PRIMARY) HYPERTENSION 07/13/2017 PINO EDWARDS MD Ot K21.0 GASTRO-ESOPHAGEAL REFLUX DISEASE WITH ES 07/13/2017 PINO EDWARDS MD Ot K29.70 GASTRITIS, UNSPECIFIED, WITHOUT BLEEDING 07/13/2017 PINO EDWARDS MD Ot K44.9 DIAPHRAGMATIC HERNIA WITHOUT OBSTRUCTION 07/13/2017 PINO EDWARDS MD Ot Z79.899 OTHER RESIDENTIAL (CURRENT) DRUG THERAPY 07/13/2017 PION EDWARDS MD Ot Z95.0 PRESENCE OF CARDIAC PACEMAKER 07/13/2017 ASIA JACKSON Ot M89.9 DISORDER OF BONE, UNSPECIFIED 07/13/2017 ASIA JACKSON MELT SUPERINTENDANT Ot Z85.46 PERSONAL HISTORY OF MALIGNANT NEOPLASM O 07/21/2017 ROSALINE SCHMIDT Ot C61 MALIGNANT NEOPLASM OF PROSTATE 07/21/2017 ROSALINE SCHMIDT Ot C79.51 SECONDARY MALIGNANT NEOPLASM OF BONE 07/21/2017 ROSALINE SCHMIDT Ot M47.816 SPONDYLOSIS W/O MYELOPATHY OR RADICULOPA 08/09/2017 ROSALINE SCHMIDT Gale Ot C61 MALIGNANT NEOPLASM OF PROSTATE 08/09/2017 ROSALINE SCHMIDT Ot C79.51 SECONDARY MALIGNANT NEOPLASM OF BONE 08/09/2017 ROSALINE SCHMIDT Ot Z51.0 ENCOUNTER FOR ANTINEOPLASTIC RADIATION T 08/11/2017 GUILLERMINA HAZEL MD Ot C61 MALIGNANT NEOPLASM OF PROSTATE 08/11/2017 GUILLERMINA HAZEL MD, Ot C79.51 SECONDARY MALIGNANT NEOPLASM OF BONE 09/05/2017 Ot 427.89 CARDIAC DYSRHYTHMIAS NEC 09/05/2017 DENZEL ROSS MD Ot C61 MALIGNANT NEOPLASM OF PROSTATE 09/07/2017 BEN CRANDALL MD Ot C61 MALIGNANT NEOPLASM OF PROSTATE 09/07/2017 BEN CRANDALL MD, Ot C79.51 SECONDARY MALIGNANT NEOPLASM OF BONE 09/07/2017 BEN CRANDALL MD Ot D61.818 OTHER PANCYTOPENIA 09/07/2017 BEN CRANDALL MD Ot E78.00 PURE HYPERCHOLESTEROLEMIA, UNSPECIFIED 09/07/2017 BEN CRANDALL MD Ot E87.1 HYPO-OSMOLALITY AND HYPONATREMIA 09/07/2017 BEN CRANDALL MD Ot I10 ESSENTIAL (PRIMARY) HYPERTENSION 09/07/2017 BEN CRANDALL MD 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 09/07/2017 BEN CRANDALL MD Ot I73.9 PERIPHERAL VASCULAR DISEASE, UNSPECIFIED 09/07/2017 BEN CRANDALL MD, Ot K21.9 GASTRO-ESOPHAGEAL REFLUX DISEASE WITHOUT 09/07/2017 BEN CRANDALL MD Ot K59.09 OTHER CONSTIPATION 09/07/2017 BEN CRANDALL MD, Ot R79.1 ABNORMAL COAGULATION PROFILE 09/07/2017 BEN CRANDALL MD Ot W19.XXXA UNSPECIFIED FALL, INITIAL ENCOUNTER 09/07/2017 BEN CRANDALL MD Ot Y92.[address] IN SINGLE-FAMILY (PRIVATE) 09/07/2017 BEN CRANDALL MD Ot Z92.21 PERSONAL HISTORY OF ANTINEOPLASTIC CHEMO 09/07/2017 BEN CRANDALL MD Ot Z92.3 PERSONAL HISTORY OF IRRADIATION 09/07/2017 BEN CRANDALL MD Ot Z95.0 PRESENCE OF CARDIAC PACEMAKER 09/08/2017 BEN CRANDALL MD Ot C61 MALIGNANT NEOPLASM OF PROSTATE 09/08/2017 BEN CRANDALL MD, Ot C79.51 SECONDARY MALIGNANT NEOPLASM OF BONE 09/08/2017 BEN CRANDALL MD Ot D61.818 OTHER PANCYTOPENIA 09/08/2017 BEN CRANDALL MD Ot E78.00 PURE HYPERCHOLESTEROLEMIA, UNSPECIFIED 09/08/2017 BEN CRANDALL MD Ot E87.1 HYPO-OSMOLALITY AND HYPONATREMIA 09/08/2017 BEN CRANDALL MD Ot I10 ESSENTIAL (PRIMARY) HYPERTENSION 09/08/2017 BEN CRANDALL MD, 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 09/08/2017 BEN CRANDALL MD Ot I73.9 PERIPHERAL VASCULAR DISEASE, UNSPECIFIED 09/08/2017 BEN CRANDALL MD, Ot K21.9 GASTRO-ESOPHAGEAL REFLUX DISEASE WITHOUT 09/08/2017 BEN CRANDALL MD, Ot K59.09 OTHER CONSTIPATION 09/08/2017 BEN CRANDALL MD, Ot R79.1 ABNORMAL COAGULATION PROFILE 09/08/2017 BEN CRANDALL MD, Ot W19.XXXA UNSPECIFIED FALL, INITIAL ENCOUNTER 09/08/2017 BEN CRANDALL MD, Ot Y92.[address] IN SINGLE-FAMILY (PRIVATE) 09/08/2017 BEN CRANDALL MD, Ot Z92.21 PERSONAL HISTORY OF ANTINEOPLASTIC CHEMO 09/08/2017 BEN CRANDALL MD Ot Z92.3 PERSONAL HISTORY OF IRRADIATION 09/08/2017 BEN CRANDALL MD Ot Z95.0 PRESENCE OF CARDIAC PACEMAKER 09/21/2017 GUILLERMINA HAZEL MD, Ot C61 MALIGNANT NEOPLASM OF PROSTATE 09/21/2017 GUILLERMINA HAZEL MD, Ot C79.51 SECONDARY MALIGNANT NEOPLASM OF BONE 09/30/2017 GUILLERMINA HAZEL MD, Ot C61 MALIGNANT NEOPLASM OF PROSTATE 09/30/2017 GUILLERMINA HAZEL MD, Ot C79.51 SECONDARY MALIGNANT NEOPLASM OF BONE Procedures There is no data. Results Test Result Range Complete blood count (CBC) with automated white blood cell (WBC) differential - 09/24/16 11:30 Blood leukocytes automated count (number/volume) 5.9 10*3/uL 4.3-11.0 Blood erythrocytes automated count (number/volume) 3.92 10*6/uL 4.35-5.85 Venous blood hemoglobin measurement (mass/volume) 12.9 g/dL 13.3-17.7 Blood hematocrit (volume fraction) 37 % 40-54 Automated erythrocyte mean corpuscular volume 93 [foz_us] 80-99 Automated erythrocyte mean corpuscular hemoglobin (mass per erythrocyte) 33 pg 25-34 Automated erythrocyte mean corpuscular hemoglobin concentration measurement ( mass/volume) 35 g/dL 32-36 Automated erythrocyte distribution width ratio 13.2 % 10.0-14.5 Automated blood platelet count (count/volume) 211 10*3/uL 130-400 Automated blood platelet mean volume measurement 8.4 [foz_us] 7.4-10.4 Automated blood neutrophils/100 leukocytes 61 % 42-75 Automated blood lymphocytes/100 leukocytes 25 % 12-44 Blood monocytes/100 leukocytes 12 % 0-12 Automated blood eosinophils/100 leukocytes 2 % 0-10 Automated blood basophils/100 leukocytes 0 % 0-10 Blood neutrophils automated count (number/volume) 3.6 10*3 1.8-7.8 Blood lymphocytes automated count (number/volume) 1.5 10*3 1.0-4.0 Blood monocytes automated count (number/volume) 0.7 10*3 0.0-1.0 Automated eosinophil count 0.1 10*3/uL 0.0-0.3 Automated blood basophil count (count/volume) 0.0 10*3/uL 0.0-0.1 Prostate specific ag [mass/volume] in serum or plasma - 09/24/16 11:30 Prostate specific ag [mass/volume] in serum or plasma 436.96 % 0.00-4.00 Complete blood count (CBC) with automated white blood cell (WBC) differential - 10/28/16 09:14 Blood leukocytes automated count (number/volume) 4.7 10*3/uL 4.3-11.0 Blood erythrocytes automated count (number/volume) 3.81 10*6/uL 4.35-5.85 Venous blood hemoglobin measurement (mass/volume) 12.7 g/dL 13.3-17.7 Blood hematocrit (volume fraction) 35 % 40-54 Automated erythrocyte mean corpuscular volume 93 [foz_us] 80-99 Automated erythrocyte mean corpuscular hemoglobin (mass per erythrocyte) 33 pg 25-34 Automated erythrocyte mean corpuscular hemoglobin concentration measurement ( mass/volume) 36 g/dL 32-36 Automated erythrocyte distribution width ratio 13.5 % 10.0-14.5 Automated blood platelet count (count/volume) 226 10*3/uL 130-400 Automated blood platelet mean volume measurement 9.0 [foz_us] 7.4-10.4 Automated blood neutrophils/100 leukocytes 68 % 42-75 Automated blood lymphocytes/100 leukocytes 21 % 12-44 Blood monocytes/100 leukocytes 9 % 0-12 Automated blood eosinophils/100 leukocytes 3 % 0-10 Automated blood basophils/100 leukocytes 0 % 0-10 Blood neutrophils automated count (number/volume) 3.2 10*3 1.8-7.8 Blood lymphocytes automated count (number/volume) 1.0 10*3 1.0-4.0 Blood monocytes automated count (number/volume) 0.4 10*3 0.0-1.0 Automated eosinophil count 0.1 10*3/uL 0.0-0.3 Automated blood basophil count (count/volume) 0.0 10*3/uL 0.0-0.1 Prostate specific ag [mass/volume] in serum or plasma - 10/28/16 09:14 Prostate specific ag [mass/volume] in serum or plasma 658.44 H 0.00-4.00 Complete blood count (CBC) with automated white blood cell (WBC) differential - 12/02/16 14:15 Blood leukocytes automated count (number/volume) 5.1 10*3/uL 4.3-11.0 Blood erythrocytes automated count (number/volume) 3.54 10*6/uL 4.35-5.85 Venous blood hemoglobin measurement (mass/volume) 11.8 g/dL 13.3-17.7 Blood hematocrit (volume fraction) 33 % 40-54 Automated erythrocyte mean corpuscular volume 94 [foz_us] 80-99 Automated erythrocyte mean corpuscular hemoglobin (mass per erythrocyte) 33 pg 25-34 Automated erythrocyte mean corpuscular hemoglobin concentration measurement ( mass/volume) 36 g/dL 32-36 Automated erythrocyte distribution width ratio 14.2 % 10.0-14.5 Automated blood platelet count (count/volume) 233 10*3/uL 130-400 Automated blood platelet mean volume measurement 8.3 [foz_us] 7.4-10.4 Automated blood neutrophils/100 leukocytes 64 % 42-75 Automated blood lymphocytes/100 leukocytes 24 % 12-44 Blood monocytes/100 leukocytes 8 % 0-12 Automated blood eosinophils/100 leukocytes 3 % 0-10 Automated blood basophils/100 leukocytes 0 % 0-10 Blood neutrophils automated count (number/volume) 3.3 10*3 1.8-7.8 Blood lymphocytes automated count (number/volume) 1.2 10*3 1.0-4.0 Blood monocytes automated count (number/volume) 0.4 10*3 0.0-1.0 Automated eosinophil count 0.1 10*3/uL 0.0-0.3 Automated blood basophil count (count/volume) 0.0 10*3/uL 0.0-0.1 Prostate specific ag [mass/volume] in serum or plasma - 12/02/16 14:15 Prostate specific ag [mass/volume] in serum or plasma 736.82 % 0.00-4.00 Complete blood count (CBC) with automated white blood cell (WBC) differential - 12/30/16 11:23 Blood leukocytes automated count (number/volume) 5.0 10*3/uL 4.3-11.0 Blood erythrocytes automated count (number/volume) 3.39 10*6/uL 4.35-5.85 Venous blood hemoglobin measurement (mass/volume) 11.5 g/dL 13.3-17.7 Blood hematocrit (volume fraction) 32 % 40-54 Automated erythrocyte mean corpuscular volume 94 [foz_us] 80-99 Automated erythrocyte mean corpuscular hemoglobin (mass per erythrocyte) 34 pg 25-34 Automated erythrocyte mean corpuscular hemoglobin concentration measurement ( mass/volume) 36 g/dL 32-36 Automated erythrocyte distribution width ratio 13.8 % 10.0-14.5 Automated blood platelet count (count/volume) 193 10*3/uL 130-400 Automated blood platelet mean volume measurement 7.9 [foz_us] 7.4-10.4 Automated blood neutrophils/100 leukocytes 64 % 42-75 Automated blood lymphocytes/100 leukocytes 20 % 12-44 Blood monocytes/100 leukocytes 12 % 0-12 Automated blood eosinophils/100 leukocytes 3 % 0-10 Automated blood basophils/100 leukocytes 0 % 0-10 Blood neutrophils automated count (number/volume) 3.2 10*3 1.8-7.8 Blood lymphocytes automated count (number/volume) 1.0 10*3 1.0-4.0 Blood monocytes automated count (number/volume) 0.6 10*3 0.0-1.0 Automated eosinophil count 0.2 10*3/uL 0.0-0.3 Automated blood basophil count (count/volume) 0.0 10*3/uL 0.0-0.1 Prostate specific ag [mass/volume] in serum or plasma - 12/30/16 11:23 Prostate specific ag [mass/volume] in serum or plasma 941.57 % 0.00-4.00 Complete blood count (CBC) with automated white blood cell (WBC) differential - 03/08/17 11:25 Blood leukocytes automated count (number/volume) 6.4 10*3/uL 4.3-11.0 Blood erythrocytes automated count (number/volume) 2.63 10*6/uL 4.35-5.85 Venous blood hemoglobin measurement (mass/volume) 8.4 g/dL 13.3-17.7 Blood hematocrit (volume fraction) 25 % 40-54 Automated erythrocyte mean corpuscular volume 95 [foz_us] 80-99 Automated erythrocyte mean corpuscular hemoglobin (mass per erythrocyte) 32 pg 25-34 Automated erythrocyte mean corpuscular hemoglobin concentration measurement ( mass/volume) 34 g/dL 32-36 Automated erythrocyte distribution width ratio 14.7 % 10.0-14.5 Automated blood platelet count (count/volume) 207 10*3/uL 130-400 Automated blood platelet mean volume measurement 9.1 [foz_us] 7.4-10.4 Automated blood neutrophils/100 leukocytes 85 % 42-75 Automated blood lymphocytes/100 leukocytes 6 % 12-44 Blood monocytes/100 leukocytes 9 % 0-12 Automated blood eosinophils/100 leukocytes 0 % 0-10 Automated blood basophils/100 leukocytes 0 % 0-10 Blood neutrophils automated count (number/volume) 5.4 10*3 1.8-7.8 Blood lymphocytes automated count (number/volume) 0.4 10*3 1.0-4.0 Blood monocytes automated count (number/volume) 0.6 10*3 0.0-1.0 Automated eosinophil count 0.0 10*3/uL 0.0-0.3 Automated blood basophil count (count/volume) 0.0 10*3/uL 0.0-0.1 Whole blood basic metabolic panel - 03/08/17 11:25 Serum or plasma sodium measurement (moles/volume) 131 mmol/L 135-145 Serum or plasma potassium measurement (moles/volume) 3.6 mmol/L 3.6-5.0 Serum or plasma chloride measurement (moles/volume) 95 mmol/L 98-107 Carbon dioxide 25 mmol/L 21-32 Serum or plasma anion gap determination (moles/volume) 11 mmol/L 5-14 Serum or plasma urea nitrogen measurement (mass/volume) 20 mg/dL 7-18 Serum or plasma creatinine measurement (mass/volume) 0.83 mg/dL 0.60-1.30 Serum or plasma urea nitrogen/creatinine mass ratio 24 0 -20 Serum or plasma creatinine measurement with calculation of estimated glomerular filtration rate > NRG Serum or plasma glucose measurement (mass/volume) 194 mg/dL 70-105 Serum or plasma calcium measurement (mass/volume) 8.4 mg/dL 8.5-10.1 Complete urinalysis with reflex to culture - 03/08/17 14:16 Urine color determination RED NRG Urine clarity determination BLOODY NRG Urine pH measurement by test strip 7 5-9 Specific gravity of urine by test strip 1.010 1.016- 1.022 Urine protein assay by test strip, semi-quantitative 4+ NEGATIVE Urine glucose detection by automated test strip NEGATIVE NEGATIVE Erythrocytes detection in urine sediment by light microscopy 5+ NEGATIVE Urine ketones detection by automated test strip NEGATIVE NEGATIVE Urine nitrite detection by test strip NEGATIVE NEGATIVE Urine total bilirubin detection by test strip NEGATIVE NEGATIVE Urine urobilinogen measurement by automated test strip (mass/volume) NORMAL NORMAL Urine leukocyte esterase detection by dipstick 3+ NEGATIVE Automated urine sediment erythrocyte count by microscopy (number/high power field) [facility] NR Automated urine sediment leukocyte count by microscopy (number/high power field ) [facility] Bacteria detection in urine sediment by light microscopy LARGE NRG Squamous epithelial cells detection in urine sediment by light microscopy NONE NRG Crystals detection in urine sediment by light microscopy NONE NRG Casts detection in urine sediment by light microscopy NONE NRG Mucus detection in urine sediment by light microscopy NEGATIVE NRG Complete urinalysis with reflex to culture YES NRG Bacterial urine culture - 03/08/17 14:16 Bacterial urine culture [id number] NRG COLONY COUNT >100,000/ML NRG FTX;REPORTABLE SENSITIVITY REPORTED AT 0815, 03-10-17 NRG URINE CULTURE RESULTS PLUS NRG Bacterial susceptibility panel - 03/08/17 14:16 Gentamicin susceptibility test by minimum inhibitory concentration > = NRG Trimethoprim/sulfamethoxazole susceptibility test by minimum inhibitoryconcentration >= NRG Ampicillin susceptibility test by minimum inhibitory concentration > = NRG Tobramycin susceptibility test by minimum inhibitory concentration 8 NRG Cefazolin susceptibility test by minimum inhibitory concentration 8 NRG Ceftriaxone susceptibility test by minimum inhibitory concentration <= NRG Ampicillin/sulbactam susceptibility test by minimum inhibitory concentration >= NRG Piperacillin/tazobactam susceptibility test by minimum inhibitory concentration 16 NRG Ciprofloxacin susceptibility test by minimum inhibitory concentration <= NRG Meropenem susceptibility test by minimum inhibitory concentration < = NRG Nitrofurantoin susceptibility test by minimum inhibitory concentration <= NRG Aztreonam susceptibility test by minimum inhibitory concentration < = NRG Extended spectrum beta lactamase (ESBL) producing bacteria susceptibility test by minimum inhibitory concentration - NRG Amikacin susceptibility test by minimum inhibitory concentration S NRG [id number] - 03/11/17 09:30 [id number] SPECIMEN AVAILABLE NRG Semen free prostate specific antigen (PSA) measurement (units/volume) - 09:30 Prostate specific ag [mass/volume] in serum or plasma 2050.29 % 0.00-4.00 Bacterial urine culture - 04/01/17 14:35 Bacterial urine culture [id number] NRG COLONY COUNT >100,000/ML NRG FTX;REPORTABLE SENSITIVITY REPORTED 04/03/17 8:55 NRG FREE TEXT ENTRY 2 PLUS, NRG FREE TEXT ENTRY 3 MIXED GRAM POSITIVES <10,000/ML NRG Bacterial susceptibility panel - 04/01/17 14:35 Gentamicin susceptibility test by minimum inhibitory concentration > = NRG Trimethoprim/sulfamethoxazole susceptibility test by minimum inhibitoryconcentration >= NRG Ampicillin susceptibility test by minimum inhibitory concentration > = NRG Tobramycin susceptibility test by minimum inhibitory concentration 8 NRG Cefazolin susceptibility test by minimum inhibitory concentration 8 NRG Ceftriaxone susceptibility test by minimum inhibitory concentration <= NRG Ampicillin/sulbactam susceptibility test by minimum inhibitory concentration >= NRG Piperacillin/tazobactam susceptibility test by minimum inhibitory concentration 16 NRG Ciprofloxacin susceptibility test by minimum inhibitory concentration <= NRG Meropenem susceptibility test by minimum inhibitory concentration < = NRG Nitrofurantoin susceptibility test by minimum inhibitory concentration <= NRG Aztreonam susceptibility test by minimum inhibitory concentration < = NRG Extended spectrum beta lactamase (ESBL) producing bacteria susceptibility test by minimum inhibitory concentration - NRG Hemoglobin A1c - 05/10/17 10:21 Hemoglobin A1c 5.2 % 4.5-6.2 THYROID STIMULATING HORMONE - 05/10/17 10:21 THYROID STIMULATING HORMONE 2.21 u[iU]/mL 0.35-4.94 Serum Helicobacter pylori antibody assay (units/volume) - 05/10/17 10:21 Helicobacter pylori ab [units/volume] in serum 0.26 u[iU]/mL 0.00-0.79 Interpretation of Helicobacter pylori IgG antibody assay Negative Negative Complete blood count (CBC) with automated white blood cell (WBC) differential - 09/05/17 14:45 Blood leukocytes automated count (number/volume) 3.6 10*3/uL 4.3-11.0 Blood erythrocytes automated count (number/volume) 1.61 10*6/uL 4.35-5.85 Venous blood hemoglobin measurement (mass/volume) 5.2 g/dL 13.3-17.7 Blood hematocrit (volume fraction) 15 % 40-54 Automated erythrocyte mean corpuscular volume 94 [foz_us] 80-99 Automated erythrocyte mean corpuscular hemoglobin (mass per erythrocyte) 32 pg 25-34 Automated erythrocyte mean corpuscular hemoglobin concentration measurement ( mass/volume) 34 g/dL 32-36 Automated erythrocyte distribution width ratio 20.6 % 10.0-14.5 Automated blood platelet count (count/volume) 52 10*3/uL 130-400 Automated blood platelet mean volume measurement 9.9 [foz_us] 7.4-10.4 Automated blood neutrophils/100 leukocytes 66 % 42-75 Automated blood lymphocytes/100 leukocytes 23 % 12-44 Blood monocytes/100 leukocytes 10 % 0-12 Automated blood eosinophils/100 leukocytes 1 % 0-10 Automated blood basophils/100 leukocytes 1 % 0-10 Blood neutrophils automated count (number/volume) 2.5 10*3 1.8-7.8 Blood lymphocytes automated count (number/volume) 0.9 10*3 1.0-4.0 Blood monocytes automated count (number/volume) 0.4 10*3 0.0-1.0 Automated eosinophil count 0.0 10*3/uL 0.0-0.3 Automated blood basophil count (count/volume) 0.0 10*3/uL 0.0-0.1 Comprehensive metabolic panel - 09/05/17 14:45 Serum or plasma sodium measurement (moles/volume) 131 mmol/L 135-145 Serum or plasma potassium measurement (moles/volume) 5.0 mmol/L 3.6-5.0 Serum or plasma chloride measurement (moles/volume) 99 mmol/L 98-107 Carbon dioxide 22 mmol/L 21-32 Serum or plasma anion gap determination (moles/volume) 10 mmol/L 5-14 Serum or plasma urea nitrogen measurement (mass/volume) 26 mg/dL 7-18 Serum or plasma creatinine measurement (mass/volume) 0.86 mg/dL 0.60-1.30 Serum or plasma urea nitrogen/creatinine mass ratio 30 NRG Serum or plasma creatinine measurement with calculation of estimated glomerular filtration rate > NRG Serum or plasma glucose measurement (mass/volume) 134 mg/dL 70-105 Serum or plasma calcium measurement (mass/volume) 9.0 mg/dL 8.5-10.1 Serum or plasma total bilirubin measurement (mass/volume) 0.9 mg/dL 0.1-1.0 Serum or plasma alkaline phosphatase measurement (enzymatic activity/volume) 121 U/L 40-136 Serum or plasma aspartate aminotransferase measurement (enzymatic activity/ volume) 39 U/L 5-34 Serum or plasma alanine aminotransferase measurement (enzymatic activity/volume ) 10 U/L 0-55 Serum or plasma protein measurement (mass/volume) 6.8 g/dL 6.4-8.2 Serum or plasma albumin measurement (mass/volume) 3.9 g/dL 3.2-4.5 Pathologist review of blood test by comment - 09/05/17 14:45 Blood leukocytes automated count (number/volume) 4.1 10*3/uL 4.3-11.0 Blood erythrocytes automated count (number/volume) 1.61 10*6/uL 4.35-5.85 Venous blood hemoglobin measurement (mass/volume) 5.2 g/dL 13.3-17.7 Blood hematocrit (volume fraction) 15 % 40-54 Automated erythrocyte mean corpuscular volume 94 [foz_us] 80-99 Automated erythrocyte mean corpuscular hemoglobin (mass per erythrocyte) 32 pg 25-34 Automated erythrocyte mean corpuscular hemoglobin concentration measurement ( mass/volume) 34 g/dL 32-36 Automated erythrocyte distribution width ratio 20.6 % 10.0-14.5 Automated blood platelet count (count/volume) 52 10*3/uL 130-400 Automated blood platelet mean volume measurement 9.9 [foz_us] 7.4-10.4 Automated blood neutrophils/100 leukocytes 66 % 42-75 Automated blood lymphocytes/100 leukocytes 23 % 12-44 Blood monocytes/100 leukocytes 4 % NRG Automated blood eosinophils/100 leukocytes 1 % 0-10 Automated blood basophils/100 leukocytes 1 % 0-10 Blood neutrophils automated count (number/volume) 2.5 10*3 1.8-7.8 Blood lymphocytes automated count (number/volume) 0.9 10*3 1.0-4.0 Blood monocytes automated count (number/volume) 0.4 10*3 0.0-1.0 Automated eosinophil count 0.0 10*3/uL 0.0-0.3 Automated blood basophil count (count/volume) 0.0 10*3/uL 0.0-0.1 Manual blood segmented neutrophils/100 leukocytes 66 % NRG Blood band neutrophils/100 leukocytes 4 % NRG Manual blood lymphocytes/100 leukocytes 26 % NRG Blood anisocytosis detection by light microscopy MODERATE NRG Blood macrocytes detection by light microscopy SLIGHT NRG Blood ovalocytes detection by light microscopy SLIGHT NRG Blood microcytes detection by light microscopy SLIGHT NRG Blood reticulocytes count (number/volume) 60 10*9/L 24- 90 Blood reticulocytes/100 erythrocytes 3.69 % 0.50-2.40 Blood dacrocytes detection by light microscopy MODERATE NRG Serum or plasma troponin i.cardiac measurement (mass/volume) - 09/05/17 14:45 Serum or plasma troponin i.cardiac measurement (mass/volume) < ng/ mL <0.30 ANEMIA ANALYZER - 09/05/17 14:45 Serum or plasma total bilirubin measurement (mass/volume) 0.9 mg/dL 0.1-1.3 Serum or plasma alkaline phosphatase measurement (enzymatic activity/volume) 120 U/L 43-136 Serum or plasma aspartate aminotransferase measurement (enzymatic activity/ volume) 38 U/L 0-40 Blood leukocytes automated count (number/volume) 3.6 10*3/uL 4.3-11.0 Blood erythrocytes automated count (number/volume) 1.61 10*6/uL 4.35-5.85 Venous blood hemoglobin measurement (mass/volume) 5.2 g/dL 13.3-17.7 Blood hematocrit (volume fraction) 15 % 40-54 Automated erythrocyte mean corpuscular volume 94 [foz_us] 80-99 Automated erythrocyte mean corpuscular hemoglobin (mass per erythrocyte) 32 pg 25-34 Automated erythrocyte mean corpuscular hemoglobin concentration measurement ( mass/volume) 32 g/dL 32-36 Automated erythrocyte distribution width ratio 20.6 % 10.0-14.5 Automated blood platelet count (count/volume) 52 10*3/uL 130-400 Automated blood platelet mean volume measurement 9.9 [foz_us] 7.4-10.4 Automated blood neutrophils/100 leukocytes 66 % 42-75 Automated blood lymphocytes/100 leukocytes 23 % 12-44 Blood monocytes/100 leukocytes 4 % NRG Automated blood eosinophils/100 leukocytes 1 % 0-10 Automated blood basophils/100 leukocytes 0 % 0-10 Blood neutrophils automated count (number/volume) 2.5 10*3 1.8-7.8 Blood lymphocytes automated count (number/volume) 0.9 10*3 1.0-4.0 Blood monocytes automated count (number/volume) 0.4 10*3 0.0-1.0 Automated eosinophil count 0.0 10*3/uL 0.0-0.3 Automated blood basophil count (count/volume) 0.0 10*3/uL 0.0-0.1 Manual blood segmented neutrophils/100 leukocytes 66 % NRG Blood band neutrophils/100 leukocytes 4 % NRG Manual blood lymphocytes/100 leukocytes 26 % NRG Blood anisocytosis detection by light microscopy MODERATE NRG Blood macrocytes detection by light microscopy SLIGHT NRG Blood ovalocytes detection by light microscopy SLIGHT NRG Body fluid/serum or plasma lactate dehydrogenase (LDH) ratio 385 H 100-250 Blood microcytes detection by light microscopy SLIGHT NRG Blood reticulocytes count (number/volume) 60 10*9/L 24- 90 Blood reticulocytes/100 erythrocytes 3.69 % 0.50-2.40 Blood dacrocytes detection by light microscopy MODERATE NRG Bilirubin direct and total panel [Mass/volume] - Serum or Plasma 0.2 mg/dL 0.0-0.3 PT panel in platelet poor plasma by coagulation assay - 09/05/17 14:45 Prothrombin time (PT) in platelet poor plasma by coagulation assay 16.2 s 12.2-14.7 INR in platelet poor plasma or blood by coagulation assay 1.3 0.8-1.4 Activated partial thromboplastin time (aPTT) in platelet poor plasma bycoagulation assay - 09/05/17 14:45 Activated partial thromboplastin time (aPTT) in platelet poor plasma bycoagulation assay 40 s 24-35 Fibrin D-dimer FEU measurement in platelet poor plasma (mass/volume) - 14:45 Fibrin D-dimer FEU measurement in platelet poor plasma (mass/volume) > ug/mL 0.00-0.49 Serum or plasma folate measurement (mass/volume) - 09/05/17 14:45 Serum or plasma folate measurement (mass/volume) > ng/mL 1.5-24.0 Serum iron and total iron binding capacity panel - 09/05/17 14:45 Serum or plasma iron measurement (mass/volume) 231 H 40 -180 Total iron binding capacity and transferrin saturation measurement 71 H 15-50 Iron binding capacity [mass/volume] in serum or plasma 325 ug/dL 280-380 UIBC (unsaturated iron binding capacity) 94 ug/dL 55-450 Cyanocobalamin measurement - 09/05/17 14:45 Vitamin B12 1479 H 200-1000 Direct antiglobulin test (ALFREDITO) using polyspecific reagent - 09/05/17 14:45 Direct antiglobulin test.poly specific reagent Negative NRG Capillary blood glucose measurement by glucometer (mass/volume) - 09/05/17 15: 03 Capillary blood glucose measurement by glucometer (mass/volume) 157 mg/dL 70-110 RED CELLS LEUKO REDUCED AS1 - 09/05/17 15:30 RED CELLS LEUKO REDUCED AS1 TRANSFUSED 09/06/17 1000 NRG Blood type T Indirect antibody screen panel - 09/05/17 15:30 ABO+Rh group AP NRG Transfusion band number [id number] NRG Blood group antibody screen NEGATIVE NRG Complete blood count (CBC) with automated white blood cell (WBC) differential - 09/06/17 05:20 Blood leukocytes automated count (number/volume) 2.9 10*3/uL 4.3-11.0 Blood erythrocytes automated count (number/volume) 2.01 10*6/uL 4.35-5.85 Venous blood hemoglobin measurement (mass/volume) 6.4 g/dL 13.3-17.7 Blood hematocrit (volume fraction) 19 % 40-54 Automated erythrocyte mean corpuscular volume 94 [foz_us] 80-99 Automated erythrocyte mean corpuscular hemoglobin (mass per erythrocyte) 32 pg 25-34 Automated erythrocyte mean corpuscular hemoglobin concentration measurement ( mass/volume) 34 g/dL 32-36 Automated erythrocyte distribution width ratio 17.6 % 10.0-14.5 Automated blood platelet count (count/volume) 36 10*3/uL 130-400 Automated blood platelet mean volume measurement 10.8 [foz_us] 7.4-10.4 Automated blood neutrophils/100 leukocytes 70 % 42-75 Automated blood lymphocytes/100 leukocytes 17 % 12-44 Blood monocytes/100 leukocytes 11 % 0-12 Automated blood eosinophils/100 leukocytes 1 % 0-10 Automated blood basophils/100 leukocytes 1 % 0-10 Blood neutrophils automated count (number/volume) 2.0 10*3 1.8-7.8 Blood lymphocytes automated count (number/volume) 0.5 10*3 1.0-4.0 Blood monocytes automated count (number/volume) 0.3 10*3 0.0-1.0 Automated eosinophil count 0.0 10*3/uL 0.0-0.3 Automated blood basophil count (count/volume) 0.0 10*3/uL 0.0-0.1 Blood CBC with ordered manual differential panel - 09/07/17 05:34 Blood leukocytes automated count (number/volume) 2.6 10*3/uL 4.3-11.0 Blood erythrocytes automated count (number/volume) 2.25 10*6/uL 4.35-5.85 Venous blood hemoglobin measurement (mass/volume) 7.1 g/dL 13.3-17.7 Blood hematocrit (volume fraction) 21 % 40-54 Automated erythrocyte mean corpuscular volume 92 [foz_us] 80-99 Automated erythrocyte mean corpuscular hemoglobin (mass per erythrocyte) 32 pg 25-34 Automated erythrocyte mean corpuscular hemoglobin concentration measurement ( mass/volume) 34 g/dL 32-36 Automated erythrocyte distribution width ratio 17.9 % 10.0-14.5 Automated blood platelet count (count/volume) 31 10*3/uL 130-400 Automated blood platelet mean volume measurement 11.2 [foz_us] 7.4-10.4 Automated blood neutrophils/100 leukocytes 67 % 42-75 Automated blood lymphocytes/100 leukocytes 19 % 12-44 Blood monocytes/100 leukocytes 8 % NRG Automated blood eosinophils/100 leukocytes 2 % 0-10 Automated blood basophils/100 leukocytes 0 % 0-10 Blood neutrophils automated count (number/volume) 1.7 10*3 1.8-7.8 Blood lymphocytes automated count (number/volume) 0.5 10*3 1.0-4.0 Blood monocytes automated count (number/volume) 0.3 10*3 0.0-1.0 Automated eosinophil count 0.0 10*3/uL 0.0-0.3 Automated blood basophil count (count/volume) 0.0 10*3/uL 0.0-0.1 Manual blood segmented neutrophils/100 leukocytes 58 % NRG Blood band neutrophils/100 leukocytes 7 % NRG Manual blood lymphocytes/100 leukocytes 17 % NRG Manual eosinophils/100 leukocytes in nose 2 % NRG Manual blood basophils/100 leukocytes 0 % NRG Blood polychromasia detection by light microscopy SLIGHT NRG Blood anisocytosis detection by light microscopy MODERATE NRG Blood macrocytes detection by light microscopy SLIGHT NRG Blood ovalocytes detection by light microscopy SLIGHT NRG Manual blood metamyelocytes/100 leukocytes 7 % NRG Manual blood nucleated erythrocytes/100 leukocytes ratio 4 NRG Blood hypochromia detection by light microscopy SLIGHT NRG Blood microcytes detection by light microscopy SLIGHT NRG Blood dacrocytes detection by light microscopy SLIGHT NRG Blood spherocytes detection by light microscopy SLIGHT NRG Blood schistocytes detection by light microscopy SLIGHT NRG Blood basophilic stippling detection by light microscopy SLIGHT NRG Manual blood myelocytes/100 leukocytes 1 % NRG PT panel in platelet poor plasma by coagulation assay - 09/07/17 05:34 Prothrombin time (PT) in platelet poor plasma by coagulation assay 17.0 s 12.2-14.7 INR in platelet poor plasma or blood by coagulation assay 1.4 0.8-1.4 Fibrinogen measurement in platelet poor plasma by coagulation assay (mass/ volume) - 09/07/17 05:34 Fibrinogen measurement in platelet poor plasma by coagulation assay (mass/ volume) 223 mg/dL 221-496 Comprehensive metabolic panel - 09/07/17 05:34 Serum or plasma sodium measurement (moles/volume) 135 mmol/L 135-145 Serum or plasma potassium measurement (moles/volume) 3.6 mmol/L 3.6-5.0 Serum or plasma chloride measurement (moles/volume) 104 mmol/L 98-107 Carbon dioxide 21 mmol/L 21-32 Serum or plasma anion gap determination (moles/volume) 10 mmol/L 5-14 Serum or plasma urea nitrogen measurement (mass/volume) 14 mg/dL 7-18 Serum or plasma creatinine measurement (mass/volume) 0.65 mg/dL 0.60-1.30 Serum or plasma urea nitrogen/creatinine mass ratio 22 NRG Serum or plasma creatinine measurement with calculation of estimated glomerular filtration rate > NRG Serum or plasma glucose measurement (mass/volume) 90 mg/dL 70-105 Serum or plasma calcium measurement (mass/volume) 7.9 mg/dL 8.5-10.1 Serum or plasma total bilirubin measurement (mass/volume) 0.9 mg/dL 0.1-1.0 Serum or plasma alkaline phosphatase measurement (enzymatic activity/volume) 100 U/L 40-136 Serum or plasma aspartate aminotransferase measurement (enzymatic activity/ volume) 28 U/L 5-34 Serum or plasma alanine aminotransferase measurement (enzymatic activity/volume ) 9 U/L 0-55 Serum or plasma protein measurement (mass/volume) 5.4 g/dL 6.4-8.2 Serum or plasma albumin measurement (mass/volume) 3.2 g/dL 3.2-4.5 Fibrin D-dimer FEU measurement in platelet poor plasma (mass/volume) - 05:34 Fibrin D-dimer FEU measurement in platelet poor plasma (mass/volume) > ug/mL 0.00-0.49 Whole blood hemoglobin and hematocrit panel - 09/07/17 13:55 Venous blood hemoglobin measurement (mass/volume) 7.7 g/dL 13.3-17.7 Blood hematocrit (volume fraction) 23 % 40-54 Automated blood complete blood count (hemogram) panel - 09/08/17 06:03 Blood leukocytes automated count (number/volume) 2.5 10*3/uL 4.3-11.0 Blood erythrocytes automated count (number/volume) 2.26 10*6/uL 4.35-5.85 Venous blood hemoglobin measurement (mass/volume) 7.1 g/dL 13.3-17.7 Blood hematocrit (volume fraction) 21 % 40-54 Automated erythrocyte mean corpuscular volume 93 [foz_us] 80-99 Automated erythrocyte mean corpuscular hemoglobin (mass per erythrocyte) 31 pg 25-34 Automated erythrocyte mean corpuscular hemoglobin concentration measurement ( mass/volume) 34 g/dL 32-36 Automated erythrocyte distribution width ratio 17.8 % 10.0-14.5 Automated blood platelet count (count/volume) 23 10*3/uL 130-400 Automated blood platelet mean volume measurement 11.3 [foz_us] 7.4-10.4 Encounters ACCT No. Visit Date/Time Discharge Status Pt. 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, EXPRESSIVE DYSPHAGIA,DIC [id number] 08/10/2017 13:23:00 08/10/2017 23:59:59 CLS Outpatient GUILLERMINA HAZEL MD [facility] ONC [id number] 07/22/2017 09:42:00 08/09/2017 11:01:00 DIS Outpatient ROSALINE SCHMIDT [facility] ONC [id number] 06/14/2017 13:52:00 06/25/2017 00:01:00 DIS Outpatient ROSALINE SCHMIDT [facility] ONC [id number] 06/22/2017 09:23:00 06/22/2017 12:50:00 DIS Outpatient PINO EDWARDS MD [facility] ENDO HX BARETTS [id number] 06/20/2017 10:14:00 06/20/2017 23:59:59 CLS Outpatient ROSALINE SCHMIDT [facility] RAD PROSTATE CA C61 [id number] 06/20/2017 05:38:00 06/20/2017 15:32:00 DIS Outpatient PINO EDWARDS MD [facility] PREOP EGD [id number] 06/14/2017 15:57:00 06/14/2017 23:59:59 CLS 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 [id number] 05/11/2017 11:05:00 05/11/2017 23:59:59 CLS Outpatient BEN CRANDALL MD [facility] RAD RT SCROTAL ENLARGEMENT [id number] 05/10/2017 10:12:00 05/10/2017 23:59:59 CLS Outpatient BEN CRANDALL MD [facility] LAB [id number] 04/07/2017 10:39:00 05/03/2017 00:01:00 DIS Outpatient ROSALINE SCHMIDT [facility] ONC [id number] 04/14/2017 14:00:00 04/14/2017 23:59:59 CLS Outpatient YARI POE APRN [facility] RAD BACK PAIN [id number] 04/04/2017 12:10:00 04/04/2017 23:59:59 CLS Outpatient ROSALINE SCHMIDT [facility] CARD PROSTATE CANCER [id number] 03/11/2017 08:59:00 03/11/2017 23:59:59 CLS Outpatient BEN CRANDALL MD [facility] LAB [id number] 03/03/2017 00:15:00 03/03/2017 23:59:59 CLS Preadmit DENZEL ROSS MD [facility] LAB [id number] 03/02/2017 10:00:00 03/02/2017 00:01:00 DIS Outpatient DENZEL ROSS MD [facility] LAB [id number] 01/19/2017 09:01:00 01/26/2017 00:01:00 DIS Outpatient ROSALINE SCHMIDT [facility] ONC [id number] 01/25/2017 10:42:00 01/25/2017 23:59:59 CLS Outpatient ROSALINE SCHMIDT [facility] CARD C61 PROSTATE CA [id number] 01/19/2017 10:59:00 01/19/2017 23:59:59 CLS Preadmit ROSALINE SCHMIDT [facility] RAD PROSTATE CA C61 [id number] 10/28/2016 09:23:00 10/28/2016 23:59:59 CLS Outpatient DENZEL ROSS MD [facility] LAB [id number] 07/06/2016 14:12:00 10/04/2016 00:01:00 DIS Outpatient ROSALINE SCHMIDT [facility] ONC [id number] 09/24/2016 11:17:00 09/24/2016 23:59:59 CLS Outpatient DENZEL ROSS MD [facility] LAB [id number] 06/10/2016 10:37:00 07/06/2016 14:11:00 DIS Outpatient ROSALINE SCHMIDT [facility] ONC [id number] 06/30/2016 08:23:00 06/30/2016 11:05:00 DIS Outpatient PINO EDWARDS MD [facility] SDC SCREENING [id number] 06/28/2016 06:23:00 06/28/2016 23:59:59 CLS Outpatient PINO EDWARDS MD [facility] PREOP SCREENING [id number] 06/08/2016 12:09:00 06/08/2016 23:59:59 CLS Outpatient ROSALINE SCHMIDT [facility] 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, PROSTATE CA [id number] 05/13/2016 08:49:00 05/13/2016 23:59:59 CLS Outpatient ASIA JACKSON [facility] CARD PROSTATE CANCER, METASTASIS TO BONE [id number] 04/29/2016 14:15:00 04/29/2016 23:59:59 CLS Outpatient ASIA JACKSONP [facility] ONC [id number] 04/08/2016 13:29:00 04/08/2016 23:59:59 CLS Outpatient JACKSONJESICAAH S MELT SUPERINTENDANT [facility] ONC [id number] 03/31/2016 10:43:00 04/06/2016 00:01:00 DIS Outpatient ROSALINE SCHMIDT [facility] ONC [id number] 04/01/2016 09:07:00 04/01/2016 23:59:59 CLS Outpatient GEORGINA HAIRSTON [facility] CARD LVH,RAPID OR IREGULAR HEARTBEAT [id number] 03/17/2016 10:59:00 03/17/2016 23:59:59 CLS Outpatient JACKSON HILAH S MELT SUPERINTENDANT [facility] ONC [id number] 03/12/2016 11:39:00 03/12/2016 23:59:59 CLS Outpatient JACKSON HILAH S MELT SUPERINTENDANT [facility] CARD PROSTATE CA, METASTASIS TO BONE [id number] 03/09/2016 12:34:00 03/09/2016 23:59:59 CLS Outpatient JACKSON HILAH S MELT SUPERINTENDANT [facility] ONC [id number] 02/04/2016 11:58:00 02/04/2016 23:59:59 CLS Outpatient JACKSON HILAH S MELT SUPERINTENDANT [facility] ONC [id number] 01/22/2016 08:59:00 01/22/2016 23:59:59 CLS Outpatient JACKSON HILAH S MELT SUPERINTENDANT [facility] ONC [id number] 01/07/2016 13:48:00 01/07/2016 23:59:59 CLS Outpatient JACKSON HILAH S MELT SUPERINTENDANT [facility] ONC [id number] 01/02/2016 11:05:00 01/02/2016 23:59:59 CLS Outpatient ROSALINE SCHMIDT [facility] CARD PROSTATE CA WITH METS [id number] 12/04/2015 10:24:00 12/10/2015 00:01:00 DIS Outpatient ROSALINE SCHMIDT [facility] ONC [id number] 10/27/2015 14:19:00 10/27/2015 23:59:59 CLS Outpatient JACKSON HILAH S MELT SUPERINTENDANT [facility] ONC [id number] 10/03/2015 10:34:00 10/03/2015 23:59:59 CLS Outpatient ASIA JACKSON MELT SUPERINTENDANT [facility] ONC [id number] 07/12/2015 10:31:00 07/12/2015 23:59:59 CLS Outpatient COLTHUCHE YUAN DO A [facility] QUICK [id number] 06/26/2015 15:02:00 06/26/2015 23:59:59 CLS Outpatient GEORGINA HAIRSTON [facility] CARD CAD,ROSALBA, CLAUDICATION [id number] 06/24/2015 07:43:00 06/25/2015 00:01:00 DIS Outpatient ROSALINE SCHMIDT [facility] ONC [id number] 06/23/2015 10:15:00 06/23/2015 23:59:59 CLS Outpatient ASIA JACKSON MELT SUPERINTENDANT [facility] ONC [id number] 05/08/2015 10:05:00 05/08/2015 23:59:59 CLS Outpatient BEN CRANDALL MD [facility] CARD PROSTATE CA [id number] 11/25/2014 12:46:00 02/23/2015 00:01:00 DIS Outpatient ROSALINE SCHMIDT [facility] ONC [id number] 04/30/2014 13:06:00 07/29/2014 00:01:00 DIS Outpatient ROSALINE SCHMIDT [facility] ONC [id number] 04/26/2014 08:18:00 07/01/2014 00:01:00 DIS Outpatient BEN CRANDALL MD [facility] CARD BRADYCARDIA [id number] 05/11/2014 21:53:00 05/12/2014 16:30:00 DIS Inpatient BEN CRANDALL MD [facility] ICU CP, HYPERTENSIVE URGENCY , R SIDED WEAKNESS [id number] 05/08/2014 07:50:00 05/09/2014 11:45:00 DIS Outpatient BEBO HUTCHINS MD [facility] SIC SINUS SYNDROME,HTN, CAD,SYNCOPE [id number] 04/30/2014 10:00:00 04/30/2014 23:59:59 CLS Outpatient RENETTA ASIA HAIDER [facility] ONC [id number] 10/29/2013 08:54:00 01/27/2014 00:01:00 DIS Outpatient ROSALINE SCHMIDT [facility] ONC [id number] 11/29/2013 10:40:00 11/29/2013 23:59:59 CLS Outpatient Laura JORDAN MD [facility] RAD MALIGNANT NEOPLASM OF BONE BONE MARROW [id number] 07/25/2013 13:57:00 08/03/2013 11:38:00 DIS Outpatient BEN CRANDALL MD [facility] REHAB L NECK AND R SCAPULAR PAIN [id number] 02/01/2013 09:13:00 05/02/2013 00:01:00 DIS Outpatient ROSALINE SCHMIDT [facility] ONC [id number] 02/28/2013 10:55:00 02/28/2013 18:10:00 DIS Outpatient BEBO HUTCHINS MD [facility] CATH ABN STRESS, CAD, HLP, HTN [id number] 02/16/2013 10:39:00 02/16/2013 23:59:59 CLS Outpatient ROSALINE SCHMIDT [facility] RAD SCREENING,PT ON HORMONE THERAPY [id number] 02/14/2013 08:01:00 02/14/2013 23:59:59 CLS Outpatient BEBO HUTCHINS MD [facility] RAD PALPITATIONS,HTN [id number] 02/12/2013 08:41:00 02/12/2013 23:59:59 CLS Outpatient BEBO HUTCHINS MD [facility] CARD PALPITATIONS,HTN [id number] 07/03/2015 15:28:00 Document Registration [id number] 07/02/2014 08:00:00 Document Registration [id number] 05/30/2012 08:27:00 Document Registration [id number] 2012 09:30:00 Document Registration
--- NOTE | 2017-10-26 14:49 | ED Lower Extremity ---
General Chief Complaint: Lower Extremity Stated Complaint: POSS BLOOD CLOT--SWELLING,DISCOLORED FOOT Nursing Triage Note: c/o discoloration of left foot. Daughter noticed symptoms this morning. Feet bilaterally are swollen. Pt is on hospice secondary to metastaic cancer. Nursing Sepsis Screen: No Definite Risk Source: patient Exam Limitations: no limitations History of Present Illness Date Seen by Provider: Oct 26, 2017 Time Seen by Provider: 14:46 Initial Comments To ER with purplish discoloration and pain to the left foot. Patient noticed pain to his left foot last night, he has not seen his feet but his daughter noticed the color to be purplish today. 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 Onset: just prior to arrival Severity: moderate Pain/Injury Location: left foot Modifying Factors: Worse With Movement Allergies and Home Medications Allergies Coded Allergies: clindamycin (Verified Allergy, Severe, COULDN'T SWALLOW, 09/05/17) adhesive (Verified Allergy, Intermediate, Rash, 09/05/17) amoxicillin (Verified Allergy, Intermediate, NAUSEA, 09/05/17) REPORTS SEVERE N/V clavulanic acid (Verified Allergy, Intermediate, NAUSEA, 09/05/17) REPORTS SEVERE N/V Home Medications Calcium Carbonate/Vitamin D3 1 Each Tablet, 1 TAB PO HS, (Reported) Cetirizine HCl 10 Mg Tablet, 10 MG PO DAILY PRN for ALLERGIES, (Reported) Cholecalciferol (Vitamin D3) 1,000 Unit Capsule, 1,000 UNIT PO DAILY, (Reported) Hydrochlorothiazide 25 Mg Tablet, 25 MG PO DAILY, (Reported) Losartan Potassium 100 Mg Tablet, 100 MG PO HS, (Reported) Metoprolol Succinate 50 Mg Tab.er.24h, 50 MG PO DAILY, (Reported) Multivitamin 1 Each Tablet, 1 TAB PO DAILY, (Reported) Ondansetron HCl 8 Mg Tablet, 8 MG PO Q8H PRN for NAUSEA/VOMITING-1ST LINE, ( Reported) Pantoprazole Sodium 40 Mg Tablet.dr, 40 MG PO DAILY, (Reported) Potassium Chloride 10 Meq Tablet.er, 10 MEQ PO DAILY, (Reported) Sucralfate 1 Gm Tablet, 1 GM PO TID PRN for STOMACH UPSET, (Reported) [Vitamin B-12] , 1 TAB PO DAILY, (Reported) Constitutional: see HPI EENTM: see HPI Respiratory: no symptoms reported Cardiovascular: no symptoms reported Genitourinary: no symptoms reported Musculoskeletal: no symptoms reported Skin: no symptoms reported Psychiatric/Neurological: No Symptoms Reported Past Yfvkjzf-Wbjsmm-Zaxtow Hx Patient Social History Alcohol Use: Denies Use Recreational Drug Use: No Smoking Status: Never a Smoker 2nd Hand Smoke Exposure: No Recent Foreign Travel: No Contact w/Someone Who Travel: No Recent Infectious Disease Expo: No Recent Hopitalizations: No Immunizations Up To Date Tetanus Booster (TDap): Unknown Date of Pneumonia Vaccine: Feb 28, 2011 Seasonal Allergies Seasonal Allergies: No Surgeries History of Surgeries: Yes Surgeries: Appendectomy, Pacemaker Respiratory History of Respiratory Disorde: No Currently Using CPAP: No Currently Using BIPAP: No Cardiovascular History of Cardiac Disorders: Yes (PACEMAKER) Cardiac Disorders: High Cholesterol, Hypertension Neurological History of Neurological Disord: No Reproductive System Hx Reproductive Disorders: No Sexually Transmitted Disease: No HIV/AIDS: No Genitourinary History of Genitourinary Disor: Yes (PROSTATE CA) Genitourinary Disorders: Prostate Problems Gastrointestinal History of Gastrointestinal Di: Yes Gastrointestinal Disorders: Gastroesophageal Reflux, Otto's Esophagus, Chronic Constipation Musculoskeletal History of Musculoskeletal Dis: Yes (BONE CANCER, HIP PAIN) Endocrine History of Endocrine Disorders: No HEENT Loss of Vision: Bilateral Hearing Impairment: Hard of Hearing Cancer History of Cancer: Yes Cancer: Prostate, Bone Did You Recieve Any Treatments: Yes Type of Tx Receive: Chemotherapy, Other Psychosocial History of Psychiatric Problem: No Integumentary History of Skin or Integumenta: No Blood Transfusions History of Blood Disorders: No Adverse Reaction to a Blood Tr: No (N/A) Family Medical History Significant Family History: Hypertension Family Medial History: Physical Exam Vital Signs Vital Sign - Last 12Hours 10/26/17 14:34 Temp 95.8 Pulse 82 Resp 16 B/P (MAP) 136/56 (82) Pulse Ox 95 O2 Delivery Nasal Cannula Capillary Refill : Less Than 3 Seconds General Appearance: WD/WN, no apparent distress HEENT: PERRL/EOMI, normal ENT inspection Neck: non-tender, full range of motion Respiratory: normal breath sounds, no respiratory distress, no accessory muscle use Gastrointestinal: normal bowel sounds, non tender Hips: bilateral hip non-tender, bilateral hip normal inspection, bilateral hip normal range of motion Legs: bilateral leg non-tender, bilateral leg normal inspection, bilateral leg normal range of motion Knees: bilateral knee non-tender, bilateral knee normal inspection, bilateral knee normal range of motion Ankles: bilateral ankle non-tender, bilateral ankle normal inspection, bilateral ankle normal range of motion Feet: left foot soft tissue tenderness, left foot swelling, left foot other (I am able to Doppler blood flow over the posterior tibial artery though this is very faint. I am unable to Doppler blood flow over the dorsalis pedis artery left foot. Each toe is purple and without capillary refill. ) Neurologic/Psychiatric: alert, normal mood/affect, oriented x 3 Skin: normal color, warm/dry Comments On the right, the right 4th toe is cyanotic. Progress/Results/Core Measures Results/Orders Lab Results Laboratory Tests Test 10/26/17 15:50 Range/Units White Blood Count 3.6 L 4.3-11.0 10^3/uL Red Blood Count 0.98 L 4.35-5.85 10^6/uL Hemoglobin 3.2 *L 13.3-17.7 G/DL Hematocrit 10 *L 40-54 % Mean Corpuscular Volume 104 H 80-99 FL Mean Corpuscular Hemoglobin 33 25-34 PG Mean Corpuscular Hemoglobin Concent 31 L 32-36 G/DL Red Cell Distribution Width 24.8 H 10.0-14.5 % Platelet Count 6 *L 130-400 10^3/uL Mean Platelet Volume 7.4-10.4 FL Neutrophils (%) (Auto) 62 42-75 % Lymphocytes (%) (Auto) 30 12-44 % Monocytes (%) (Auto) 7 0-12 % Eosinophils (%) (Auto) 1 0-10 % Basophils (%) (Auto) 0 0-10 % Neutrophils # (Auto) 2.4 1.8-7.8 X 10^3 Lymphocytes # (Auto) 1.2 1.0-4.0 X 10^3 Monocytes # (Auto) 0.3 0.0-1.0 X 10^3 Eosinophils # (Auto) 0.0 0.0-0.3 10^3/uL Basophils # (Auto) 0.0 0.0-0.1 10^3/uL Neutrophils % (Manual) 78 % Lymphocytes % (Manual) 12 % Eosinophils % (Manual) 6 % Band Neutrophils 4 % Polychromasia SLIGHT Anisocytosis MODERATE Macrocytosis MODERATE Sodium Level 138 135-145 MMOL/L Potassium Level 3.5 L 3.6-5.0 MMOL/L Chloride Level 104 98-107 MMOL/L Carbon Dioxide Level 23 21-32 MMOL/L Anion Gap 11 5-14 MMOL/L Blood Urea Nitrogen 36 H 7-18 MG/DL Creatinine 0.78 0.60-1.30 MG/DL Estimat Glomerular Filtration Rate > 60 BUN/Creatinine Ratio 46 Glucose Level 121 H 70-105 MG/DL Calcium Level 7.6 L 8.5-10.1 MG/DL Total Bilirubin 0.8 0.1-1.0 MG/DL Aspartate Amino Transf (AST/SGOT) 33 5-34 U/L Alanine Aminotransferase (ALT/SGPT) 10 0-55 U/L Alkaline Phosphatase 123 40-136 U/L Total Protein 5.4 L 6.4-8.2 GM/DL Albumin 2.9 L 3.2-4.5 GM/DL My Orders Orders - LA PHILLIPS APRN Consult Physician (10/26/17 14:44) Saline Lock/Iv-Start (10/26/17 14:44) Cbc With Automated Diff (10/26/17 14:44) Comprehensive Metabolic Panel (10/26/17 14:44) Us Srikanth Lower Ext [id number] (10/26/17 14:49) Us Venous Lower Ext Lt (10/26/17 14:56) Manual Differential (10/26/17 15:50) Vital Signs/I&O Vital Sign - Last 12Hours 10/26/17 14:34 Temp 95.8 Pulse 82 Resp 16 B/P (MAP) 136/56 (82) Pulse Ox 95 O2 Delivery Nasal Cannula Blood Pressure Mean: 82 Departure Communication (Admissions) Progress Notes 1510- I did discuss the case with Dr. Collins from cardiology who does peripheral procedures. Advises that because of the platelet count of 23 patient cannot have peripheral angioplasty. Amputation the surgeon should not be considered for the same reason 1603-I did discuss the case with Dr. Maldonado, patient's primary care provider. She agrees that there is unfortunately nothing that we can do to treat this arterial occlusion, treatment would be pain control. His thrombocytopenia and anemia preclude him from surgical treatment or peripheral angioplasty as the risks of bleeding are too great. I did ask Dr. Louis to visit with the patient with me. We advised patient and his family to have any additional family would want to come visit him in the next few days as the end of life is likely very near. They would like to get him into medical [facility]. Because of the time, he could not be admitted there today. We will discharge him to home, hospice nurse will get him settled for the night at home and they will work on placing him in the senior living tomorrow morning. Impression Impression: Primary Impression: arterial occlusion of left foot Disposition: HOME, SELF-CARE Condition: Stable Departure-Patient Inst. Decision time for Depature: 16:04 Referrals: BEN MALDONADO MD (PCP/Family) Primary Care Physician Patient Instructions: NO INSTRUCTIONS GIVEN Add. Discharge Instructions: 1. All discharge instructions reviewed with patient and/or family. Voiced understanding. Copy Copies To 1: BEN MALDONADO MD, PETER J APRN Oct 26, 2017 14:48
[2017-10-26 16:05] LABS: BASOPHILS % (AUTO) 0 % (0-10); EOSINOPHILS % (AUTO) 1 % (0-10); LYMPHOCYTES # (AUTO) 1.2 X 10^3 (1.0-4.0); LYMPHOCYTES % (AUTO) 30 % (12-44); MEAN CORPUSCULAR HEMOGLOBIN 33 PG (25-34); MEAN CORPUSCULAR HGB CONC 31 G/DL (32-36); MEAN CORPUSCULAR VOLUME 104 FL (80-99); MONOCYTES # (AUTO) 0.3 X 10^3 (0.0-1.0); MONOCYTES % (AUTO) 7 % (0-12); NEUTROPHILS # (AUTO) 2.4 X 10^3 (1.8-7.8); NEUTROPHILS % (AUTO) 62 % (42-75); RED BLOOD COUNT 0.98 10^6/uL (4.35-5.85); RED CELL DISTRIBUTION WIDTH 24.8 % (10.0-14.5)
[2017-10-26 16:09] LABS: HEMOGLOBIN 3.2 G/DL (13.3-17.7)
[2017-10-26 16:10] LABS: HEMATOCRIT 10 % (40-54); PLATELET COUNT 6 10^3/uL (130-400)
--- NOTE | 2017-10-26 16:16 | Diagnostic Imaging Report ---
INDICATION: Left leg swelling. Left leg venous Doppler study was performed in the routine fashion with color flow Doppler and waveform analysis. FINDINGS: The left common femoral vein, superficial femoral vein, popliteal vein and visualized portion of the posterior tibial vein show normal compressibility and venous flow patterns. There is normal augmentation. IMPRESSION: No evidence of deep vein thrombosis of the major veins of the left leg. Dictated by: Dictated on workstation # [id number]
--- NOTE | 2017-10-26 16:26 | Diagnostic Imaging Report ---
INDICATION: Discoloration of left foot. TECHNIQUE: Bilateral lower extremity arterial Doppler study performed in routine fashion with color flow Doppler and waveform analysis. FINDINGS: On the right side, the flow is biphasic throughout except in the anterior tibial artery and dorsalis pedis where flow was absent. There are no focal high velocity jets otherwise seen on the right side. On the left side, flow is biphasic up to the popliteal level, where a focal high velocity jet is noted compatible with significant stenosis, with velocity of 250 cm/s. Flow is monophasic below this point. No flow is visualized in anterior tibial artery or dorsalis pedis. Slow monophasic flow is visualized in the posterior tibial artery. 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 Anterior tibial artery and dorsalis pedis were absent on both sides. Dictated by: Dictated on workstation # [id number]
[2017-10-26 16:27] LABS: ALANINE AMINOTRANSFERASE 10 U/L (0-55); ALBUMIN 2.9 GM/DL (3.2-4.5); ALKALINE PHOSPHATASE 123 U/L (40-136); BILIRUBIN,TOTAL 0.8 MG/DL (0.1-1.0); BUN/CREATININE RATIO 46; CALCIUM 7.6 MG/DL (8.5-10.1); CARBON DIOXIDE 23 MMOL/L (21-32); CHLORIDE 104 MMOL/L (98-107); CREATININE SERUM 0.78 MG/DL (0.60-1.30); GFR ESTIMATED > 60; GLUCOSE 121 MG/DL (70-105); POTASSIUM 3.5 MMOL/L (3.6-5.0); SODIUM 138 MMOL/L (135-145); TOTAL PROTEIN 5.4 GM/DL (6.4-8.2)
[2017-10-26 16:36] LABS: WHITE BLOOD COUNT 3.6 10^3/uL (4.3-11.0)
[2017-10-26 16:37] LABS: ANISOCYTOSIS MODERATE; BAND NEUTROPHILS 4 %; EOSINOPHILS % (MANUAL) 6 %; LYMPHOCYTES % (MANUAL) 12 %; NEUTROPHILS % (MANUAL) 78 %; POLYCHROMASIA SLIGHT
[2017-10-26 17:01] VITALS: BP 132/54
== END 2017-10-26 17:01 | disposition home or self-care (01) ==
LOC: EDUNIT# 14:04 → ER 14:06
DX: I74.3 Embolism and thrombosis of arteries of the lower extremities (principal); C61 Malignant neoplasm of prostate; C79.51 Secondary malignant neoplasm of bone; I10 Essential (primary) hypertension; E78.00 Pure hypercholesterolemia, unspecified; K21.9 Gastro-esophageal reflux disease without esophagitis; Z90.49 Acquired absence of other specified parts of digestive tract; Z95.0 Presence of cardiac pacemaker; Z92.21 Personal history of antineoplastic chemotherapy; Z88.1 Allergy status to other antibiotic agents; Z91.048 Other nonmedicinal substance allergy status
CPT/HCPCS: 36415; 80053; 85007; 85027; 93925; 99283